=== PATIENT | male | born 1965 | race Caucasian/White ===

== ENCOUNTER 2024-10-30 12:56 | Inpatient (IN) ==
--- NOTE | 2024-10-30 13:14 | ED Physician Documentation ---
PD HPI ABD PAIN Stated complaint Stated Complaint: ABD PX Chief complaint Chief Complaint: Abd Pain Additional information Additional information: 59-year-old male With no pertinent past medical history not on any medications presents to emergency department for about 3 weeks of diarrhea and abdominal pain. He says that he was trying to fight it off thinking it was some sort of GI bug but last night around 11 PM he started experiencing severe lower abdominal pain with diarrhea to the point that he was starting to have some vomiting. No hematochezia no hematemesis. He has been afebrile no Fevers or chills. His who he lives with has no similar symptoms. Meds/Allgy Home Medications Ambulatory Orders Medication Instructions Recorded Confirmed ascorbic acid (vitamin C) 1,000 mg 1 DAILY 09/16/15 09/16/15 chewable tablet cholecalciferol (vitamin D3) 50 1 DAILY 09/16/15 09/16/15 mcg (2,000 unit) capsule (Vitamin D3) [id number] 1 DAILY 09/16/15 09/16/15 fumarate 7.5 mg-folic acid 400 mcg tablet omega-3s 720 mg-dha 300 mg-epa 360 1 BID 09/16/15 09/16/15 mg-fish oil 1,200 mg capsule (Fish Oil) Allergies Allergies Allergy/AdvReac Type Severity Reaction Status Date / Time No Known Drug Allergies Allergy Verified 10/30/24 12:59 PFSH Active Problems All Active Problems (Updated 10/30/24 @ 16:56 by Chino Mitchell MD) CKD (chronic kidney disease) stage 2, GFR 60-89 ml/min (Acute Unknown) Hyperkalemia (Acute) Dehydration (Acute) Large bowel obstruction (Acute ~09/2024) Colon cancer (Acute) SBO (small bowel obstruction) (Acute) Abdominal pain (Acute) Medical History Medical History No pertinent past medical history Surgical History Surgical History No pertinent past surgical history Social History Social History Smoking Status: Never smoker Do you dip or chew tobacco?: No Living arrangement: At home Marital Status: Living Condition: With spouse/s.o. Relationship: Do you feel safe in your home environment?: Yes Suffered physical, verbal, emotional, or financial abuse?: No ETOH Use: Frequency: Weekly Substance Use: denies use POLST Patient has POLST: No Exam Constitutional normal general appearance, no apparent distress, average body habitus, no limitations and alert HENMT normocephalic and head/scalp atraumatic Eyes PERRL Chest inspection of chest normal Respiratory breath sounds equal bilaterally and normal respiratory effort Cardiovascular normal heart rate noted Gastrointestinal abdomen normal to inspection, abdomen soft to palpation, tender to palpation (LLQ), (RLQ) and (suprapubic), nondistended and normoactive bowel sounds Genitourinary no CVA tenderness Extremities normal to inspection Skin skin color normal Results Vitals Vitals: Vital Signs - 24 hr 10/30/24 13:00 10/30/24 16:08 Temperature 36.1 C L Temperature Source Temporal Artery Scan Pulse Rate 71 76 Respiratory Rate 18 21 Blood Pressure 109/73 117/83 O2 Saturation 98 99 O2 Source Room air Room air Pain Intensity 5 4 Oxygen O2 Source Room air Labs Labs: Laboratory Tests 10/30/24 13:23 WBC 9.6 RBC 5.29 Hgb 16.2 Hct 50.1 MCV 94.7 H MCH 30.6 MCHC 32.3 RDW 12.7 Plt Count 307 MPV 8.9 Neut # (Auto) 8.1 H Lymph # (Auto) 0.9 L [place] # (Auto) 0.6 Eos # (Auto) 0.0 Baso # (Auto) 0.0 Absolute Nucleated RBC 0.00 Nucleated RBC % 0.0 Sodium 137 Potassium 5.0 H Chloride 102 Carbon Dioxide 28 Anion Gap 7.0 BUN 17 Creatinine 1.2 Estimated GFR (MDRD) 62 L Glucose 123 H Calcium 9.7 Total Bilirubin 0.6 AST 15 ALT 14 Alkaline Phosphatase 73 Total Protein 8.3 Albumin 4.7 Globulin 3.6 Albumin/Globulin Ratio 1.3 Lipase 18 Rads (name of study) CT abdomen pelvis with contrast: Relevant Findings:: Final report received and EMP independent interpretation of test Interpretation: IMPRESSION: 1.5.7 cm segment of stricturing versus neoplastic infiltration at the proximal transverse colon with proximal small bowel/large bowel dilatation. Additional area of stricturing versus neoplastic infiltration or intussusception at the proximal jejunum. Gastroduodenal consultation and endoscopy/colonoscopy would be recommended for evaluation. 2.Subcentimeter right hepatic hypodense lesion, which is indeterminate given the above predominate finding. 3.Small hiatal hernia. PD Medical Decision Making ED course Complexity details: reviewed results, re-evaluated patient, considered differential, d/w patient and d/w c consultant (Surgeon Dr. Schulz, hospitalist Dr. New) ED course: 59-year-old male presents to emergency department via EMS for severe lower abdominal pain causing nausea vomiting diaphoresis. Since patient has been here he is overall feeling better but he has been struggling with the symptoms now for about the last 3 weeks. Differentials include but not limited to, viral GI infection, small bowel obstruction, neoplasm, colitis. Labs are complete for further evaluation no leukocytosis no anemia neutrophils slightly elevated at 8.1 slightly hyperkalemic, potassium 5.0 most likely due to dehydration, GFR 62. Patient was given a liter of IV fluids here in the emergency department to help with dehydration. CT abdomen pelvis was also completed further evaluation and it unfortunately appears that patient has colon cancer with mets. He has a 5.7 cm segment of stricturing versus neoplastic infiltration at the proximal transverse colon with proximal small bowel/large bowel dilation. Additionally there is areas of stricturing versus neoplastic infiltration or intussusception of the proximal jejunum. He also has a subcentimeter right hepatic hypodense lesion which is indeterminate given the above and a small hiatal hernia as well as a left inferior iliac wing 1.4 cm lucent lesion within sclerotic border which may represent enchondroma. I spoke with her on-call surgeon Dr. Schulz who thinks that patient would benefit from a NG tube. NG tube was placed here in the emergency department and patient was notified of the CT result findings. He said he is having a hard time taking at all and and is willing to be admitted for further evaluation and workup of this. Plan is for surgical services to round on patient hospitalist will admit and surgical services will decide tomorrow with what kind of surgery to do. Discharge Plan Discharge Patient Disposition: [facility] DC/Xfer Condition: Good Clinical Impression: Abdominal pain, SBO (small bowel obstruction), Colon cancer
[2024-10-30] MEDS ORDERED: iohexoL-300 100 ML VIAL ONE (13:17)
[2024-10-30 13:28] LABS: BASOPHILS % (AUTO) 0.2 %; EOSINOPHILS % (AUTO) 0.2 %; HCT - HEMATOCRIT 50.1 % (42.0-52.0); HGB - HEMOGLOBIN 16.2 g/dL (14.0-18.0); LYMPHOCYTES # (AUTO) 0.9 10^3/uL (1.5-3.5); LYMPHOCYTES % (AUTO) 9.3 %; MEAN CORPUSCULAR HEMOGLOBIN 30.6 pg (27.0-31.0); MEAN CORPUSCULAR HGB CONC 32.3 g/dL (32.0-36.0); MEAN CORPUSCULAR VOLUME 94.7 fL (80.0-94.0); MEAN PLATELET VOLUME 8.9 fL (7.4-11.4); MONOCYTES # (AUTO) 0.6 10^3/uL (0.0-1.0); MONOCYTES % (AUTO) 6.2 %; NEUTROPHILS # (AUTO) 8.1 10^3/uL (1.5-6.6); NEUTROPHILS % (AUTO) 83.8 %; PLT - PLATELET COUNT 307 10^3/uL (130-450); RED BLOOD COUNT 5.29 10^6/uL (4.70-6.10); RED CELL DISTRIBUTION WIDTH 12.7 % (12.0-15.0); WHITE BLOOD COUNT 9.6 x10^3/uL (4.8-10.8)
[2024-10-30 13:42] LABS: ALBUMIN 4.7 g/dL (3.2-5.5); ALBUMIN/GLOBULIN RATIO 1.3 (1.0-2.2); BILIRUBIN,TOTAL 0.6 mg/dL (0.2-1.0); CALCIUM 9.7 mg/dL (8.5-10.3); CREATININE 1.2 mg/dL (0.6-1.3); TOTAL PROTEIN 8.3 g/dL (6.4-8.9)
[2024-10-30] MEDS: iohexoL-300 100 ML VIAL IVP ONE (14:33)
--- NOTE | 2024-10-30 15:34 | CT Report ---
PROCEDURE: CT Abdomen/Pelvis W INDICATIONS: Abdominal pain, acute, nonlocalized CONTRAST: 100 ML OMNI TECHNIQUE: After the administration of intravenous contrast, a CT scan of the abdomen and pelvis was performed. Images were recorded and evaluated at appropriate window settings. Reformats: coronal and sagittal. F or radiation dose reduction, the following was used: automated exposure control, adjustment of mA and /or kV according to patient size. COMPARISON: None. FINDINGS: Image quality: Diagnostic. Peritoneum: Small amount of mesenteric fluid around the cecum/right paracolic gutter (4/35). Otherwis e, no pneumoperitoneum or ascites. Bones: No acute osseous abnormality. Left inferior iliac wing 1.4 cm lucent lesion with thin scleroti c borders, which may represent an enchondroma (2/103). Lower Thorax: No acute abnormality. Liver: Normal in size and contour. Subcentimeter hypodense lesion of the right hepatic lobe, too smal l to characterize (2/29). Gallbladder: No wall thickening, stones, or pericholecystic edema. Biliary tree: No intrahepatic or extrahepatic biliary duct dilatation. Pancreas: No acute abnormality. Spleen: Normal in size. Kidneys: Symmetric enhancement without hydronephrosis or obstructive urolithiasis. Adrenals: No nodularity. Bladder: No abnormal wall thickening. : No acute abnormality. Stomach: Small hiatal hernia. No focal masses or abnormal distension. Bowel: Approximately 5.7 cm segment of proximal transverse colonic mural thickening up to 1.7 cm (2/4 8; 4/32-46). Additional segment of mural thickening with possible intraluminal mass versus intussusce ption in the proximal jejunum (4/28; 2/37). Fluid present throughout the colon with descending coloni c dilatation up to 8.9 cm (4/34); the remainder of the colon is decompressed. Diffusely dilated small bowel loops up to 3.9 cm (2/114) without any discrete transition points. Scattered sigmoid colonic d iverticulosis. Lymph Nodes: Contiguous 7 mm short axis node along the mesenteric border of the proximal transverse c olon (2/49). No other retroperitoneal, mesenteric, or inguinal lymphadenopathy. Vascular: No abdominal aortic aneurysm. The visualized arterial vasculature is patent. Soft tissues: No acute abnormality. IMPRESSION: 1.5.7 cm segment of stricturing versus neoplastic infiltration at the proximal transverse colon with proximal small bowel/large bowel dilatation. Additional area of stricturing versus neoplastic infiltr ation or intussusception at the proximal jejunum. Gastroduodenal consultation and endoscopy/colonosco py would be recommended for evaluation. 2.Subcentimeter right hepatic hypodense lesion, which is indeterminate given the above predominate fi nding. 3.Small hiatal hernia. Reviewed by: Arthur Rojas MD on 10/30/2024 3:33 PM PST Approved by: Arthur Rojas MD on 10/30/2024 3:33 PM PST Station ID: [id number]
[2024-10-30] MEDS: SODIUM CHLORIDE 0.9% 1,000 ML IV STA (16:07)
--- NOTE | 2024-10-30 16:20 | CONSULTATION NOTE ---
Referring Provider Name of Referring Provider:: Isabel Aiken Consult Date: 10/30/24 Chief Complaint Chief Complaint Chief Complaint: Abdominal bloating, nausea, vomiting for 3 weeks History of Present Illness History of Present Illness HPI Comment/Other: Garry is a 59 year old male who has struggled with progressive abdominal bloating, nausea, and vomiting for 3 weeks. His bowel motions have changed to mainly liquid stool. He denies rectal bleeding during the last 3 weeks or at anytime during the prior 3-4 years. His appetite has been poor but he is unaware of any weight loss. His last CS exam was September 16, 2015 and was described as normal (see "Activity" tab). At the present time he feels very bloated and nauseated. PFS Active Problems All Active Problems (Updated 10/30/24 @ 16:56 by Chino Mitchell MD) CKD (chronic kidney disease) stage 2, GFR 60-89 ml/min (Acute Unknown) Hyperkalemia (Acute) Dehydration (Acute) Large bowel obstruction (Acute ~09/2024) Colon cancer (Acute) SBO (small bowel obstruction) (Acute) Abdominal pain (Acute) Medical History Medical History No pertinent past medical history Surgical History Surgical History No pertinent past surgical history Social History Social History Smoking Status: Never smoker Do you dip or chew tobacco?: No Living arrangement: At home Marital Status: Living Condition: With spouse/s.o. Relationship: Do you feel safe in your home environment?: Yes Suffered physical, verbal, emotional, or financial abuse?: No ETOH Use: Frequency: Weekly Substance Use: denies use POLST Patient has POLST: No Meds/Allgy Home Medications Ambulatory Orders Medication Instructions Recorded Confirmed ascorbic acid (vitamin C) 1,000 mg 1 DAILY 09/16/15 09/16/15 chewable tablet cholecalciferol (vitamin D3) 50 1 DAILY 09/16/15 09/16/15 mcg (2,000 unit) capsule (Vitamin D3) [id number] 1 DAILY 09/16/15 09/16/15 fumarate 7.5 mg-folic acid 400 mcg tablet omega-3s 720 mg-dha 300 mg-epa 360 1 BID 09/16/15 09/16/15 mg-fish oil 1,200 mg capsule (Fish Oil) Allergies Allergies Allergy/AdvReac Type Severity Reaction Status Date / Time No Known Drug Allergies Allergy Verified 10/30/24 12:59 Results Lab Results 10/30/24 13:23 10/30/24 13:23 Other Lab Results: Lab Results x24hrs 10/30/24 Range/Units 13:23 WBC 9.6 (4.8-10.8) x10^3/uL RBC 5.29 (4.70-6.10) 10^6/uL Hgb 16.2 (14.0-18.0) g/dL Hct 50.1 (42.0-52.0) % MCV 94.7 H (80.0-94.0) fL MCH 30.6 (27.0-31.0) pg MCHC 32.3 (32.0-36.0) g/dL RDW 12.7 (12.0-15.0) % Plt Count 307 (130-450) 10^3/uL MPV 8.9 (7.4-11.4) fL Neut # (Auto) 8.1 H (1.5-6.6) 10^3/uL Lymph # (Auto) 0.9 L (1.5-3.5) 10^3/uL [place] # (Auto) 0.6 (0.0-1.0) 10^3/uL Eos # (Auto) 0.0 (0.0-0.7) 10^3/uL Baso # (Auto) 0.0 (0.0-0.1) 10^3/uL Absolute Nucleated RBC 0.00 x10^3/uL Nucleated RBC % 0.0 /100WBC Sodium 137 (135-145) mmol/L Potassium 5.0 H (3.5-4.5) mmol/L Chloride 102 (101-111) mmol/L Carbon Dioxide 28 (21-32) mmol/L Anion Gap 7.0 (6-13) BUN 17 (6-20) mg/dL Creatinine 1.2 (0.6-1.3) mg/dL Estimated GFR (MDRD) 62 L (>89) Glucose 123 H (74-104) mg/dL Calcium 9.7 (8.5-10.3) mg/dL Total Bilirubin 0.6 (0.2-1.0) mg/dL AST 15 (10-42) IU/L ALT 14 (10-60) IU/L Alkaline Phosphatase 73 (42-121) IU/L Total Protein 8.3 (6.4-8.9) g/dL Albumin 4.7 (3.2-5.5) g/dL Globulin 3.6 (2.1-4.2) g/dL Albumin/Globulin Ratio 1.3 (1.0-2.2) Lipase 18 (11-82) U/L Diagnostic Imaging Results Diagnostic Imaging Results Comments: CT Abd/Pelvis - Obstruction of the colon at the hepatic flexure with decompressed colon distal to the obstruction. There appears to be an intra- luminal mass causing the obstruction. The colon proximal to the mass is dilated as is the terminal ileum and distal small bowel. There is no clear evidence of extension of the mass outside the colon. The liver has no evidence of metastasis. There is no evidence of bowel perforation or ischemia. I have personally reviewed the CT images and report - [place] Conclusion and Plan Diagnosis Diagnosis: 1) Obstructing colon lesion likely due to malignancy. No clear image evidence for metastatic disease or invasion of surrounding structures although there is enlargement of the mesenteric lymph nodes to this area of the colon. The ileocecal valve is incompetent which is why the distal small bowel is dilated. There is a possible non-obstructing jejuno-jejunal intussusception in the LUQ 2) Hyperkalemia 3) Intra-vascular volume depletion Plan Plan: 1) Admission to the Medical Hospitalist Service 2) NGT to LIS to decompress the small bowel 3) Potassium free IV fluid to manage the dehydration and hyperkalemia - labs in am 4) CEA blood test before any surgery performed 5) VTEP 6) My assignment at [facility] ends tomorrow morning so any surgical procedure that is performed at this facility will be by either the on-call surgeon or one of the other hospital surgeons who will make the final decision regarding operative strategy. Chino Mitchell MD, FACS General Surgery Service Review of Systems Status of ROS: 10 or more systems reviewed and unremarkable except as noted in history and below Constitutional Reports: Malaise and Poor appetite Gastrointestinal Reports: Abdominal pain, Abdominal distention, Nausea, Vomiting, Poor appetite, Diarrhea, Bloating, Belching and Change in bowel habits Exam Constitutional average body habitus In moderate distress due to abdominal bloating HENMT normocephalic, head/scalp atraumatic, hearing grossly normal bilaterally and oropharynx normal Eyes PERRL, EOMs intact bilaterally, conjunctivae normal and no scleral icterus Neck/C-Spine visual inspection normal and trachea midline Lymph no lymphadenopathy noted Chest inspection of chest normal Respiratory breath sounds equal bilaterally, normal respiratory effort, clear to auscultation bilaterally and no wheezes Cardiovascular normal heart rate noted, regular rhythm noted, no gallop and no murmur Gastrointestinal abdomen normal to inspection, abdomen soft to palpation, nontender to palpation and nontender to percussion Abdomen is distended with tympany to percussion Genitourinary no CVA tenderness Extremities normal to inspection Neurology no focal motor deficit noted Psychiatry mental status grossly normal, oriented x3, thought process normal, cooperative and affect normal Skin skin color normal diaphoretic
--- NOTE | 2024-10-30 16:59 | HISTORY & PHYSICAL EXAMINATION ---
Chief Complaint Chief Complaint Chief Complaint: abdominal pain History of Present Illness Admitted From Admitted From:: emergency room History of Present Illness HPI Comment/Other: Patient is a 59 year old male that presents for abdominal pain. Patient states that the pain began about 3 weeks ago. He describes it as intermittent intense pain lasting from seconds to minutes in the RUQ to midline upper quadrant. It has progressively been getting worse, earlier today the pain was the worst it has been and associated with vomiting and diaphoresis. Last bowel movement was this morning. Associated symptoms include nausea during pain episodes, pain worsened with eating, subjective fever this morning. Patient denies melena, hematochezia,weight loss, night sweats, family history of colon cancer, smoking history, significant medical history, significant surgical history. He states he only drinks on the weekends, 1-2 drinks. Patient had a colonoscopy that was negative in 2015. CT indicates 5.7 cm segment of stricturing versus neoplastic infiltration at the proximal transverse colon with proximal small bowel/large bowel dilatation. Additional area of stricturing versus neoplastic infiltration or intussusception at the proximal jejunum. In the ER, patient denies pain currently, NG tube has been placed. Admitted for pre-operative observation. Right hemicolectomy scheduled for tomorrow. Meds/Allgy Home Medications Ambulatory Orders Medication Instructions Recorded Confirmed ascorbic acid (vitamin C) 1,000 mg 1 DAILY 09/16/15 09/16/15 chewable tablet cholecalciferol (vitamin D3) 50 1 DAILY 09/16/15 09/16/15 mcg (2,000 unit) capsule (Vitamin D3) [id number] 1 DAILY 09/16/15 09/16/15 fumarate 7.5 mg-folic acid 400 mcg tablet omega-3s 720 mg-dha 300 mg-epa 360 1 BID 09/16/15 09/16/15 mg-fish oil 1,200 mg capsule (Fish Oil) Allergies Allergies Allergy/AdvReac Type Severity Reaction Status Date / Time No Known Drug Allergies Allergy Verified 10/30/24 12:59 [facility] Active Problems All Active Problems (Updated 10/30/24 @ 19:05 by VANESSA Mancuso) Urethral stricture (Acute) CKD (chronic kidney disease) stage 2, GFR 60-89 ml/min (Acute Unknown) Hyperkalemia (Acute) Dehydration (Acute) Large bowel obstruction (Acute ~09/2024) SBO (small bowel obstruction) (Acute) Abdominal pain (Acute) Medical History Medical History No pertinent past medical history Surgical History Surgical History No pertinent past surgical history Social History Social History Smoking Status: Never smoker Do you dip or chew tobacco?: No Living arrangement: At home Marital Status: Living Condition: With spouse/s.o. Relationship: Do you feel safe in your home environment?: Yes Suffered physical, verbal, emotional, or financial abuse?: No ETOH Use: Frequency: Weekly Substance Use: denies use POLST Patient has POLST: No Review of Systems Constitutional Reports: Fever; Denies: Chills, Night sweats, Changes in appetite or eating habits or Weight loss Cardiovascular Denies: chest pain or shortness of breath with exertion Respiratory Denies: Shortness of breath Gastrointestinal Reports: Abdominal pain (RUQ), Nausea and Vomiting; Denies: Rectal bleeding, Melena or Blood in stool Exam Constitutional normal general appearance, no apparent distress and average body habitus HENMT normocephalic, head/scalp atraumatic and nasal mucous membranes normal Eyes PERRL, EOMs intact bilaterally and conjunctivae normal Neck/C-Spine visual inspection normal and trachea midline Chest inspection of chest normal and palpation of chest normal Respiratory breath sounds equal bilaterally, normal respiratory effort, clear to auscultation bilaterally, no wheezes and no rales Cardiovascular normal heart rate noted, regular rhythm noted, no gallop, no rub and no murmur Gastrointestinal abdomen normal to inspection, nontender to palpation and normoactive bowel sounds Extremities normal to inspection Neurology form setter/driver II-XII intact, no movement abnormality noted, no focal motor deficit noted, gait normal and speech normal Psychiatry oriented x3, thought process normal, cooperative and affect normal Skin skin color normal Conclusion/Plan Problem List (1) Large bowel obstruction: Plan: Patient has been having episodes of worsening abdominal pain for the past 2-[address] indicates 5.7 cm segment of stricturing versus neoplastic infiltration at the proximal transverse colon with proximal small bowel/large bowel dilatation. Additional area of stricturing versus neoplastic infiltration or intussusception at the proximal jejunum, Subcentimeter right hepatic hypodense lesion, which is indeterminate given the above predominate finding. Consult by general surgeon Dr. Mitchell, right hemicolectomy with anastomoses indicated, surgery tomorrow will be completed by Dr. Uriarte. NG tube placed, CEA ordered, patient placed NPO. (2) Hyperkalemia: Plan: Potassium 5.0 on admission, dextrose 5%-.045%NaCl IV 150mls/hr ordered, will recheck tomorrow morning. (3) Urethral stricture: Plan: Dr. Erickson will place a rm catheter tomorrow morning prior to the surgery. Lab Results Lab results reviewed: Yes 10/30/24 13:23 10/30/24 13:23 Diagnostic Imaging Results Diagnostic Imaging Results: positive Final report reviewed
[2024-10-30] MEDS ORDERED: HYDROmorphone 0.5 MG/0.5 ML SYRINGE IVP PRN (17:16)
[2024-10-30] MEDS ORDERED: ONDANSETRON 4 MG/2 ML VIAL IVP PRN (17:16)
[2024-10-30] MEDS ORDERED: SODIUM CHLORIDE FLUSH 0.9% 10 ML SYRINGE IVP PRN ×2 (17:16→19:25)
[2024-10-30] MEDS: DEXTROSE 5%-0.45% NACL 1,000 ML IV SCH (17:32)
--- NOTE | 2024-10-30 18:02 | XRAY Report ---
PROCEDURE: XR No-Charge 1V Abdomen INDICATIONS: Ng placement TECHNIQUE: 1 view of the abdomen were acquired. COMPARISON: CT from same day FINDINGS: Surgical changes and devices: Nasogastric tube is in place. Distal tip and side-port projects below the level diaphragm and over the left upper abdomen. Positioning appears adequate. Bowel: No pneumoperitoneum. Multiple prominent loops of small bowel as noted on comparison CT. Stool load within normal limits. Soft tissues: No masses; visualized solid organ contours appear normal in size. No suspicious abdom inal calcifications. Bones: No suspicious bony abnormalities. IMPRESSION: Nasogastric tube in appropriate positioning. Reviewed by: Neel Chase MD on 10/30/2024 6:00 PM PST Approved by: Neel Chase MD on 10/30/2024 6:00 PM [facility] Station ID: [id number]
--- NOTE | 2024-10-30 18:12 | XRAY Report ---
PROCEDURE: XR Chest for Line Placement INDICATIONS: NG position TECHNIQUE: One view of the chest was acquired. COMPARISON: Abdomen from same day FINDINGS: Surgical changes and devices: Nasogastric tube is in place with distal tip and side-port projecting below the level of diaphragm and over the left upper quadrant. Lungs and pleura: No pleural effusions or pneumothorax. No consolidation. Mediastinum: Mediastinal contours appear normal. Heart size is normal. Bones and chest wall: No suspicious bony lesions. Overlying soft tissues appear unremarkable. IMPRESSION: No acute cardiopulmonary process. Nasogastric tube in place with appropriate positioning. Reviewed by: Neel Chase MD on 10/30/2024 6:10 PM PST Approved by: Neel Chase MD on 10/30/2024 6:10 PM PST Station ID: [id number]
--- NOTE | 2024-10-30 19:35 | PROVIDER PROGRESS NOTE ---
Subjective General Admit Date: 10/30/24 Other Other Information/Narrative: I was asked by Dr. Maciel to evaluate this 59-year-old male after Dr. Mitchell consulted on the patient for large bowel obstruction. Dr. Mitchell will be leaving town tomorrow morning as his on-call obligations stop at 0700. After reviewing the patient's chart, I went over the findings with both the patient and his , who is a pathologist, and explained that surgery is indicated. We do not have a pathologic diagnosis as of yet although malignancy should be considered a possibility. The patient had a normal bowel movement in the past 24 hours and has been feeling under the weather for approximately 3 weeks which he attributed to the flu. His abdominal discomfort worsened to the point where this morning at 1100 rather than attend a meeting he told his that they needed to go to the emergency room at which point the vomiting started. Of note, he had a colonoscopy by Dr. Steward in 2016 which was unrevealing of any pathology. Review of Systems CONSTITUTIONAL: No weight loss, fever, chills, weakness or fatigue. HEENT: Eyes: No visual loss, blurred vision, double vision or yellow sclerae. Ears, Nose, Throat: No hearing loss, sneezing, congestion, runny nose or sore throat. SKIN: No rash or itching. CARDIOVASCULAR: No chest pain, chest pressure or chest discomfort. No palpitations or edema. No change in cardiovascular endurance. RESPIRATORY: No shortness of breath (exertional or resting), cough or sputum. GASTROINTESTINAL: No anorexia, nausea, vomiting or diarrhea. No abdominal pain or blood. GENITOURINARY: No dysuria, urgency, frequency, nocturia. NEUROLOGICAL: No headache, dizziness, syncope, paralysis, ataxia, numbness or tingling in the extremities. No change in bowel or bladder control. No memory loss. MUSCULOSKELETAL: No muscle, back pain, joint pain or stiffness. HEMATOLOGIC: No anemia, bleeding or bruising. LYMPHATICS: No enlarged nodes. No history of splenectomy. PSYCHIATRIC: No history of depression or anxiety. ENDOCRINOLOGIC: No reports of sweating, cold or heat intolerance. No polyuria or polydipsia. ALLERGIES: No history of asthma, hives, eczema or rhinitis. Exam Exam General: 59-year old male, appears stated age, well developed, well nourished evaluated in room 2204 of [facility] Med[facility] unit in the presence of his HEENT: Normocephalic, atraumatic, extraocular movement intact, mucous membranes pink and moist, sclera anicteric and not injected Neck: Supple without pain on palpation, mass or bruit Cardiac: Regular rate and rhythm without rub, gallop, or murmur Chest: Clear to auscultation bilaterally Abdomen: Soft, nontender, decreased bowel sounds, no hepatomegaly, no splenomegaly, slightly doughy abdomen Genitourinary: Deferred Rectal: Deferred Extremities: No gross neurovascular problem, no clubbing, cyanosis or edema Gait: Not evaluated Psychiatric: Alert and oriented to person place and time, asks and answers questions appropriately, mood and affect appropriate Impression/Plan Problem List (1) Large bowel obstruction: Plan: Extended right hemicolectomy, possible ileostomy, possible colostomy, possible small bowel resection. The indications, procedure, alternatives including no surgery, possible risks including infection (deep or superficial), bleeding requiring transfusion (with all of its risks), and were fully explained to the patient and his and all questions answered. I explained that following the surgery I did not want him lifting anything over 15 pounds for 6 weeks to allow for optimal healing and to decrease the likelihood that a hernia would occur. All questions were fully answered. Verbal and written consent was obtained. The patient, in preparation for surgery will be nothing by mouth, and receive 3.375 g of Zosyn with induction. I asked him to contact me with any surgical questions and his concerns and he stated that he would. I asked him to let me know if there is any way we can make his stay at [facility] more comfortable and he stated that he would let me know. 45 minutes of dzep-[id number]-dwci time spent with the patient, over 80% in discussion and coordination of his care (2) Hyperkalemia: Plan: Sandra Babita is following and repeat labs are ordered. Likely secondary to intravascular depletion. (3) Urethral stricture: Plan: Dr. Erickson has been kind enough to make himself available if there is a problem.
[2024-10-30] MEDS: SODIUM CHLORIDE FLUSH 0.9% 10 ML SYRINGE IVP SCH (19:49)
[2024-10-30] MEDS: HEPARIN 5,000 UNIT/ML VIAL SUBQ SCH (21:09)
[2024-10-30 21:57] LABS: CALCIUM 9.4 mg/dL (8.5-10.3); CREATININE 1.1 mg/dL (0.6-1.3); POTASSIUM 4.5 mmol/L (3.5-4.5)
[2024-10-30 22:31] LABS: BILIRUBIN,URINE SMALL (NEGATIVE); GLUCOSE, URINE (UA) NEGATIVE (NEGATIVE); KETONES,URINE (UA) 15 mg/dL (NEGATIVE); LEUKOCYTE ESTERASE, URINE NEGATIVE (NEGATIVE); NITRITE,URINE NEGATIVE (NEGATIVE); OCCULT BLOOD,URINE NEGATIVE (NEGATIVE); PH,URINE 5.5 PH (5.0-7.5); PROTEIN,URINE TRACE mg/dL (NEGATIVE); UROBILINOGEN,URINE 0.2 (NORMAL) E.U./dL (NORMAL)
[2024-10-30 22:32] LABS: CLARITY,URINE CLEAR (CLEAR)
[2024-10-31] MEDS: SODIUM CHLORIDE FLUSH 0.9% 10 ML SYRINGE IVP SCH (00:19)
[2024-10-31 05:36] LABS: BASOPHILS % (AUTO) 0.4 %; EOSINOPHILS # (AUTO) 0.1 10^3/uL (0.0-0.7); EOSINOPHILS % (AUTO) 0.6 %; HCT - HEMATOCRIT 45.7 % (42.0-52.0); LYMPHOCYTES % (AUTO) 12.2 %; MEAN CORPUSCULAR HEMOGLOBIN 31.1 pg (27.0-31.0); MEAN CORPUSCULAR HGB CONC 32.8 g/dL (32.0-36.0); MEAN CORPUSCULAR VOLUME 94.6 fL (80.0-94.0); MONOCYTES # (AUTO) 0.7 10^3/uL (0.0-1.0); MONOCYTES % (AUTO) 8.8 %; NEUTROPHILS # (AUTO) 6.1 10^3/uL (1.5-6.6); NEUTROPHILS % (AUTO) 77.7 %; PLT - PLATELET COUNT 271 10^3/uL (130-450); RED BLOOD COUNT 4.83 10^6/uL (4.70-6.10); RED CELL DISTRIBUTION WIDTH 12.8 % (12.0-15.0); WHITE BLOOD COUNT 7.8 x10^3/uL (4.8-10.8)
[2024-10-31 05:55] LABS: CALCIUM 8.7 mg/dL (8.5-10.3); CREATININE 1.1 mg/dL (0.6-1.3); POTASSIUM 4.3 mmol/L (3.5-4.5)
--- NOTE | 2024-10-31 06:35 | ANESTHESIA PROCEDURE NOTE ---
Pre-Anesthesia VS, & Labs Diagnosis Surgical Diagnosis:: bowel obstruction, mass vs stricture on CT Procedure Procedure: right colectomy Vitals Vital Signs: Temp Pulse Resp BP Pulse Ox O2 Flow Rate 36.7 C 74 22 125/81 98 10 10/31/24 10:57 10/31/24 10:57 10/31/24 10:57 10/31/24 10:57 10/31/24 05:00 10/31/24 10:57 NPO NPO: >8 hours (NGT in place) Lab Results Current Lab Results: Laboratory Tests 10/31/24 05:16: WBC 7.8, RBC 4.83, Hgb 15.0, Hct 45.7, MCV 94.6 H, MCH 31.1 H, MCHC 32.8, RDW 12.8, Plt Count 271, MPV 9.0, Neut # (Auto) 6.1, Lymph # (Auto) 1.0 L, [place] # (Auto) 0.7, Eos # (Auto) 0.1, Baso # (Auto) 0.0, Absolute Nucleated RBC 0.00, Nucleated RBC % 0.0, Sodium 137, Potassium 4.3, Chloride 105, Carbon Dioxide 25, Anion Gap 7.0, BUN 15, Creatinine 1.1, Estimated GFR (MDRD) 69 L, Glucose 142 H, Calcium 8.7 10/30/24 19:48: Sodium 138, Potassium 4.5, Chloride 104, Carbon Dioxide 26, Anion Gap 8.0, BUN 19, Creatinine 1.1, Estimated GFR (MDRD) 69 L, Glucose 153 H, Calcium 9.4 10/30/24 13:23: WBC 9.6, RBC 5.29, Hgb 16.2, Hct 50.1, MCV 94.7 H, MCH 30.6, MCHC 32.3, RDW 12.7, Plt Count 307, MPV 8.9, Neut # (Auto) 8.1 H, Lymph # (Auto) 0.9 L, [place] # (Auto) 0.6, Eos # (Auto) 0.0, Baso # (Auto) 0.0, Absolute Nucleated RBC 0.00, Nucleated RBC % 0.0, Sodium 137, Potassium 5.0 H, Chloride 102, Carbon Dioxide 28, Anion Gap 7.0, BUN 17, Creatinine 1.2, Estimated GFR (MDRD) 62 L, Glucose 123 H, Calcium 9.7, Total Bilirubin 0.6, AST 15, ALT 14, Alkaline Phosphatase 73, Total Protein 8.3, Albumin 4.7, Globulin 3.6, Albumin/Globulin Ratio 1.3, Lipase 18 10/31/24 05:16 10/31/24 05:16 Meds/Allgy Home Medications Ambulatory Orders Medication Instructions Recorded Confirmed ascorbic acid (vitamin C) 1,000 mg 1 DAILY 09/16/15 09/16/15 chewable tablet cholecalciferol (vitamin D3) 50 1 DAILY 09/16/15 09/16/15 mcg (2,000 unit) capsule (Vitamin D3) [id number]-[id number]-pmxf 1 DAILY 09/16/15 09/16/15 fumarate 7.5 mg-folic acid 400 mcg tablet omega-3s 720 mg-dha 300 mg-epa 360 1 BID 09/16/15 09/16/15 mg-fish oil 1,200 mg capsule (Fish Oil) Allergies Allergies Allergy/AdvReac Type Severity Reaction Status Date / Time No Known Drug Allergies Allergy Verified 10/30/24 12:59 PFSH Active Problems All Active Problems (Updated 10/31/24 @ 11:04 by Larry Uriarte MD) Postoperative pain (Acute) Urethral stricture (Acute) CKD (chronic kidney disease) stage 2, GFR 60-89 ml/min (Acute Unknown) Hyperkalemia (Acute) Dehydration (Acute) Large bowel obstruction (Acute ~09/2024) SBO (small bowel obstruction) (Acute) Abdominal pain (Acute) Medical History Medical History No pertinent past medical history Surgical History Surgical History No pertinent past surgical history Social History Social History Smoking Status: Never smoker Do you dip or chew tobacco?: No Living arrangement: At home Marital Status: Living Condition: With spouse/s.o. Relationship: Level: Independent Do you feel safe in your home environment?: Yes Suffered physical, verbal, emotional, or financial abuse?: No ETOH Use: Frequency: Weekly Substance Use: denies use POLST Patient has POLST: No Anesthesia Exam (Expanded) Exam General: Alert, Oriented x3 and Cooperative Dental: WNL Mouth Opening: Greater than 4 Fingerbreadths Neck Mobility: Normal Mallampati classification: II Thyromental Distance: greater than 6 cm Respiratory: Lungs clear Cardiovascular: Regular rate Plan Problem List (1) Large bowel obstruction: Plan: Patient has been having episodes of worsening abdominal pain for the past 2-[address] indicates 5.7 cm segment of stricturing versus neoplastic infiltration at the proximal transverse colon with proximal small bowel/large bowel dilatation. Additional area of stricturing versus neoplastic infiltration or intussusception at the proximal jejunum, Subcentimeter right hepatic hypodense lesion, which is indeterminate given the above predominate finding. Consult by general surgeon Dr. Mitchell, right hemicolectomy with anastomoses indicated, surgery tomorrow will be completed by Dr. Uriarte. NG tube placed, CEA ordered, patient placed NPO. (2) Hyperkalemia: Plan: Potassium 5.0 on admission, dextrose 5%-.045%NaCl IV 150mls/hr ordered, will recheck tomorrow morning. (3) Urethral stricture: Plan: Dr. Erickson will place a rm catheter tomorrow morning prior to the surgery. Plan Anesthesia Type: General and Epidural Regional Block: Per Surgeon's request for Post Op pain control (epidural) Consent for Procedure(s) Verified and Reviewed: Yes Code Status: Attempt Resuscitation ASA Classification ASA classification: 2-Mild systemic disease Is this case an emergency?: Yes
[2024-10-31] MEDS ORDERED: BUPIVACAINE 0.5%-EPI 1:200000 PF 10 ML VIAL ONE (07:06)
[2024-10-31] MEDS ORDERED: LIDOCAINE-PF 2% 10 ML AMP SUBQ ONE (07:10)
[2024-10-31] MEDS ORDERED: MIDAZOLAM 2 MG/2 ML VIAL ONE ×2 (07:10→07:49)
[2024-10-31] MEDS ORDERED: PROPOFOL 200 MG/20 ML VIAL IVP ONE (07:10)
[2024-10-31] MEDS ORDERED: ROCURONIUM 50 MG/5 ML VIAL ONE ×2 (07:10→09:37)
[2024-10-31] MEDS ORDERED: fentaNYL 100 MCG/2 ML VIAL ONE ×3 (07:11→11:56)
[2024-10-31] MEDS ORDERED: PIPERACILLIN/TAZOBACTAM 3.375 GM in SODIUM CHLORIDE 0.9% MINIBAG 100 ML IV SCH ×2 (07:30→14:00)
[2024-10-31] MEDS ORDERED: DEXAMETHASONE 4 MG/ML VIAL ONE (08:57)
[2024-10-31] MEDS ORDERED: ONDANSETRON 4 MG/2 ML VIAL ONE (08:57)
[2024-10-31] MEDS ORDERED: PHENYLEPHRINE HCL 0.5 MG/5 ML AMPULE ONE (08:57)
[2024-10-31] MEDS ORDERED: ROPIVACAINE 0.2% PF 10 ML VIAL ONE ×2 (09:18→10:42)
[2024-10-31] MEDS ORDERED: PHENYLEPHRINE 10 MG/ML VIAL ONE (09:20)
[2024-10-31] MEDS ORDERED: SUGAMMADEX 200 MG/2 ML VIAL IVP ONE (10:34)
[2024-10-31] MEDS ORDERED: ACETAMINOPHEN 1,000 MG/100 ML 1,000 MG/100 ML BAG IV ONE (10:42)
--- NOTE | 2024-10-31 10:59 | OPERATIVE REPORT ---
Operative Report General Admit Date: 10/30/24 Procedure Data: Operation Date: 10/31/24 07:30 Proposed Procedures p Right Colon Hemicolectomy, Possible Ileostomy/Colostomy, Possible Small Bowel Resection,(Right) - Larry Uriarte MD Actual Procedures p Right Colon Hemicolectomy(Right) - Larry Uriarte MD Anesthesia Type Epidural Case Staff Anesthesia Provider: Layla Martinez Case Times Procedure Start: 10/31/24 08:54 Procedure End: 10/31/24 10:42 Time out: 10/31/24 08:53 Other Other Information/Narrative: Patient Name: Garry Stahl Patient date: 1965 Patent MR number: [id number] Date of procedure: 10/30/2024 Preoperative Diagnosis/Indications: Large bowel obstruction, small umbilical hernia Postoperative Diagnosis: 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 Procedure: Extended right hemicolectomy with ileocolostomy - CPT 90103, repair umbilical hernia (less than 3 cm) - CPT 12834 Fluids: 1300 mL EBL: 50 mL Urine output: 50 mL Drains: None Findings: Multiple adhesions and obstructive tumor in the proximal transverse colon Complications: None Surgeon/Dictated by: Larry Uriarte MD Senior Web Analyst: Layla Martinez CRNA Anesthesia type: General Endotracheal plus thoracic epidural Procedure: After verbal and written informed consent was obtained detailing the operation, the alternatives the operation including no operation, risks of infection, bleeding requiring transfusion with its risks, nerve injury, and and after I met with the patient confirming the surgery and the site of surgery, the patient was brought to the operative suite and placed supine on the operating table. Great care was taken to avoid pressure points to prevent pressure necrosis or nerve injury. Monitoring devices were applied along with TEDs and pneumatic compression stockings (to prevent DVT). An intravenous line was started and anesthesia was maintained throughout the case. The patient was monitored for cardiac, blood pressure, and oxygen saturation continuously. The patient received preoperative antibiotics for surgical prophylaxis. [Senior Web Analyst] sedated and anesthetized the patient for the entire procedure. The patient was prepped and draped in the usual sterile manner. With the patient draped my initials were clearly visible. A "time in" then confirmed that the patient was identified with 3 identifiers (name, date, and medical record number), the history and physical was updated and in the chart, the signed consent confirming the procedure was in the chart, the patient was in the correct position, the aforementioned prophylactic measures were in place or given, we had the correct personnel and equipment to complete the procedure and that anesthesia and the surgical team were given an opportunity to express any concerns. With the agreement of everyone in the room we proceeded with the operation. A midline incision was made from 4 cm below the xiphoid all the way down to the known umbilical hernia. It was much smaller than 3 cm in diameter. The incision was curved around the umbilicus to just below the umbilicus. Dissection down to the linea alba was accomplished using Bovie electrocautery. Hemostasis was obtained using Bovie electrocautery. The linea alba was incised using Bovie electrocautery. The peritoneum was then picked up and incised using Metzenbaum scissors and the peritoneal and incision was then lengthened to the length of the skin incision using Bovie electrocautery with my fingers protecting the bowel underneath. In this manner the fascial as well as peritoneal incisions were lengthened to the length of his skin incision. Upon entering the abdomen there was no ascites. There was a rather dense adhesion of the omentum down to the right lower quadrant. This precluded adequate visualization and as such the adhesion had to be released. Upon releasing the adhesion, the omentum was grasped and pulled cephalad thus revealing the colonic attachments to the omentum which were taken down using serial application of Bovie electrocautery. Great care was taken to not injure the colon. In this manner the colon was freed from the omentum. As I dissected distally to proximally a mass was clearly palpated in the proximal transverse colon. This was firm round and about the size of a racquetball. This was the source of the patient's obstruction. At this point I directed my attention to the right side of the patient's abdomen and dissected the colon free from the lateral wall along the white line of Toldt again using Bovie electrocautery. Great care was taken not to injure the colon itself. In this manner the colon was freed lateral to medially with the mesentery intact. Upon bringing the colon up into the wound the very tip of the appendix which had been adherent down into the pelvis did fracture at the very distal end and this was removed separately from the main specimen using application of the LigaSure. Having freed the colon proximally and distally this I continued to dissect from laterally to medially freeing the colon from its attachments to the lateral wall taking great care to ensure that there was no injury to the underlying duodenum. With this complete the entire right colon, appendix and proximal transverse colon were now fully mobilized. The mesentery of the terminal ileum was fenestrated using Bovie lecture cautery and a CASANDRA stapler was placed across the terminal ileum and fired thus transecting the terminal ileum. In a similar manner the mesentery at the mid transverse colon was fenestrated and a CASANDRA stapler was placed across the colon and fired thus transecting the colon. I measured at least 7 cm from the tumor to this staple line. Proximally there was no concern for a margin as it was much larger than 5 to 7 cm. With the colon freed now both proximally and distally the only thing that was still attaching that to the patient's was the mesentery which was taken at the base of the mesentery using serial application of the Lige sure and taking great care to ensure as many lymph nodes as possible. Two venous bleeders at the base were controlled using 3-0 Vicryl [id number] suture ligatures. The specimen was then delivered from the operative field and placed on the back table to be opened at the conclusion of the case. Examination of the resection margins revealed meticulous hemostasis. Adhesions to the terminal ileum were taken down both sharply as well as Bovie elect rocautery in order to release the terminal ileum and allow for anastomosis to the colon without any undue tension. With the adhesions released the small bowel aligned next to the distal transverse colon easily and without any tension. Three 3-0 Vicryl sutures were then placed to align the staple line as well as the proposed anastomosis. A small colotomy and ileotomy were then made using scissors widened using Denia and in each 1 arm of the CASANDRA 75 stapler was placed. The stapler was joined and fired thus creating the ileocolostomy. By creating this ileocolostomy using the stapler the 2 holes that were made in the colon and the ileum were joint to make 1 larger hole. This was then closed using an application of the CASANDRA stapler across it to ensuring that the staple lines did not line up across the closure. Manual examination as well as visual examination of this anastomosis noted to be intact and widely patent. The anastomosis was then buttressed using 3-0 Vicryl suture in a Lembert fashion on both sides of the bowel. I opted not to close the mesenteric defect. Manual and visual examination of the abdomen did not reveal any other pathology. Specifically there were no masses or lesions in the liver that were concerning. The gallbladder itself appeared normal. The nasogastric tube was in the stomach and functional. The abdomen was then copiously irrigated with almost 2 L of warm sterile saline. The preserved omentum was then wrapped about the anastomosis. The fascia was then approximated using an 0-looped PDS starting inferiorly and superiorly and running the suture to tie in the middle of the incision. In closing the fascia the previously noted umbilical hernia was also repaired. The subcutaneous tissues were copious irrigated using warm sterile saline and hemostasis obtained using Bovie electrocautery. Skin was approximated using skin maile sparingly but aligning the incision nicely. In between the maile Dermabond was placed. At this point a "timeout" was performed that confirmed that all counts were correct, the procedure that was performed, the blood loss, the IV fluids administered, the patient's condition and any concerns of the operating team had. Dressings were then applied. Having tolerated the procedure well, the patient was extubated and taken to recovery room in good and stable condition. The plan is for continued inpatient admission until bowel function has returned at which point he can be fed, we can ensure that adequate pain control is present, we can ensure that he is able to ambulate, and we can ensure there is no ongoing infection at which point he can be discharged home. To this and the ERAS protocol has been ordered. Today's documentation has been created with the assistance of voice recognition software. Therefore, it may contain anomalous punctuation, anomalous independent mis-recognitions, word substitutions, insertions or omissions. Occasional wrong-word or phonetically similar substitutions may also occur all due to the inherent limitations of voice recognition software. I have attempted to correct the above but I recommend that the chart be read carefully to recognize, using context, where the substitutions, insertions or omissions may have occurred.
[2024-10-31] MEDS ORDERED: LIDOCAINE-MPF 2% 5 ML VIAL ONE (11:08)
[2024-10-31] MEDS ORDERED: ROPIVACAINE 0.2% 200 MG/100 ML BAG EP ONE (11:08)
[2024-10-31] MEDS ORDERED: MORPHINE 2 MG/ML CARPUJECT IVP PRN (11:26)
[2024-10-31] MEDS ORDERED: METOCLOPRAMIDE 10 MG/2 ML VIAL IVP PRN ×2 (11:26)
[2024-10-31] MEDS ORDERED: NALOXONE 0.4 MG/ML VIAL IVP PRN ×3 (11:26→11:31)
[2024-10-31] MEDS ORDERED: ONDANSETRON 4 MG/2 ML VIAL IVP PRN ×2 (11:26)
[2024-10-31] MEDS ORDERED: ePHEDrine 50 MG/ML VIAL IVP PRN ×3 (11:26→11:31)
[2024-10-31] MEDS ORDERED: NALBUPHINE 10 MG/ML AMP IVP PRN ×2 (11:26→11:31)
[2024-10-31] MEDS ORDERED: ATROPINE ABBOJECT 1 MG/10 ML SYRINGE IVP PRN (11:26)
[2024-10-31] MEDS ORDERED: diphenhydrAMINE INJ 50 MG/ML VIAL IVP PRN ×3 (11:26→11:31)
[2024-10-31] MEDS ORDERED: HYDROmorphone 0.5 MG/0.5 ML SYRINGE ONE (11:38)
[2024-10-31] MEDS ORDERED: DEXMEDETOMIDINE 200 MCG/2 ML VIAL ONE (11:39)
[2024-10-31] MEDS: HYDROmorphone 0.5 MG/0.5 ML SYRINGE IVP PRN (11:39)
[2024-10-31] MEDS: fentaNYL 100 MCG/2 ML VIAL IVP PRN (12:00)
[2024-10-31] MEDS: LACTATED RINGERS 1,000 ML IV SCH ×2 (12:00→14:02)
--- NOTE | 2024-10-31 13:53 | PHARMACY PROGRESS NOTE ---
Best Possible Medication History Admit Date and Time: 10/30/24 3586 Processed by: Pharmacy Medications reviewed in ED?: No Medication History completed: Yes Patient Interview: Completed Secondary Source(s): Other family member and Insurance records [facility] Statement: Pt interview with spouse present. [employer] [facility] records reviewed. Pt takes no home medications. As the person ultimately responsible for medication therapy, providers are able to order a medication from an existing home medication list in [facility] via the "Reconcile Routine" prior to Confirmation of that medication by field support engineer. Such practice is discouraged except when the physician, in their clinical judgment, deems that a medical need exists for a medication without regard to previous use.
[2024-10-31] MEDS: LACTATED RINGERS 500 ML IV ONE (14:03)
[2024-10-31] MEDS: ACETAMINOPHEN 1,000 MG/100 ML 1,000 MG/100 ML BAG IV SCH (14:05)
--- NOTE | 2024-10-31 14:34 | ANESTHESIA POST OP EVALUATION ---
Anesthesia Post Eval Post Anesthesia Eval Vitals: Last Vital Signs Temp 36.7 C 10/31/24 12:30 Pulse 69 10/31/24 13:15 Resp 20 10/31/24 13:15 BP 98/60 10/31/24 13:15 Pulse Ox 99 10/31/24 13:15 O2 Flow Rate 10 10/31/24 10:57 CV Function Including HR & BP: Stable Pain Control: Satisfactory Nausea & Vomiting: Negative Mental Status: Baseline Respiratory Status: Airway Patent Hydration Status: Satisfactory Anesthesia Complications: None
--- NOTE | 2024-10-31 16:54 | PROVIDER PROGRESS NOTE ---
Assessment/Plan <Buffy Zelaya - Last Filed: 10/31/24 17:49> Problem List (1) Large bowel obstruction: Assessment/Plan: Patient had right hemicolectomy with ileocolostomy this morning performed by general surgeon Dr. Larry Uriarte. The procedure had no complications, there was a mass about 2in in diameter in the right colon that likely caused the obstruction. Per operative report, Manual and visual examination of the abdomen did not reveal any other pathology. Pathology pending. Patient had rm and epidural placed for surgery this morning, will keep these in place for now. NG tube remains in place. Diet plan is NPO today, advance to full liquids tomorrow. NG tube will be removed after signs of bowel activity such as passing gas or bowel movement. Pain medication via epidural includes ropivacaine 0,5mcg per ml PRN per protocol. Patient has pain pump beside bed. Managed by anesthesia. Discussed with patient need to ambulate and use chewing gum to get bowels back to normal activity. Patient expressed understanding, but would like to rest today. Recheck CBC CMP tomorrow. (2) Hyperkalemia: Assessment/Plan: Resolved, potassium at 4.3 this morning. Recheck CMP and CBC tomorrow. (3) Urethral stricture: Assessment/Plan: Rm placed this morning, will keep in place for now. Current Meds Current Meds: Current Medications Generic Name Dose Route Start Last Admin Trade Name Freq PRN Reason Stop Dose Admin Diphenhydramine HCl 25 mg 10/31/24 11:26 Diphenhydramine Inj 50 Mg/Ml Vial IVP 11/01/24 11:26 Q6H PRN ITCHING Diphenhydramine HCl 25 mg 10/31/24 11:29 Diphenhydramine Inj 50 Mg/Ml Vial IVP 11/01/24 11:29 Q6H PRN ITCHING Diphenhydramine HCl 12.5 - 25 mg 10/31/24 11:31 Diphenhydramine Inj 50 Mg/Ml Vial IVP Q6HR PRN ITCHING Ephedrine Sulfate 5 mg 10/31/24 11:26 Ephedrine 50 Mg/Ml Vial IVP 11/01/24 11:26 Q5M PRN For SBP<100;give until SBP>100 Ephedrine Sulfate 5 mg 10/31/24 11:31 Ephedrine 50 Mg/Ml Vial IVP Q5M PRN For SBP<100;give until SBP>100 Lactated Ringer's 1,000 mls @ 50 mls/hr 10/31/24 11:00 10/31/24 14:02 Lr IV Not Given .Q20H THEO Piperacillin Sod/Tazobactam 100 mls @ 200 mls/hr 10/31/24 14:00 Sod 3.375 gm/ Sodium Chloride IV 11/02/24 14:29 ONCE THEO Ropivacaine 200 mg in 100 mls @ 0 mls/hr 10/31/24 11:31 Naropin 0.2% EP PRN PRN PAIN Protocol Per Protocol Acetaminophen 1,000 mg in 100 mls @ 400 mls/hr 10/31/24 14:00 10/31/24 14:20 Acetaminophen IV Infused Q8HR THEO Infusion Metoclopramide HCl 10 mg 10/31/24 11:26 Metoclopramide 10 Mg/2 Ml Vial IVP 11/01/24 11:26 Q6HR PRN Nausea / Vomiting Nalbuphine HCl 5 mg 10/31/24 11:26 Nalbuphine 10 Mg/Ml Amp IVP 11/01/24 11:26 Q4H PRN ITCHING Nalbuphine HCl 2.5 - 5 mg 10/31/24 11:31 Nalbuphine 10 Mg/Ml Amp IVP Q4H PRN ITCHING Naloxone HCl 0.1 mg 10/31/24 11:26 Naloxone 0.4 Mg/Ml Vial IVP 11/01/24 11:26 Q2M PRN RR < 8 Naloxone HCl 0.1 mg 10/31/24 11:31 Naloxone 0.4 Mg/Ml Vial IVP Q2M PRN RR<8 Ondansetron HCl 4 mg 10/31/24 11:26 Ondansetron 4 Mg/2 Ml Vial IVP 11/01/24 11:26 Q6HR PRN Nausea / Vomiting Ondansetron HCl 4 mg 10/31/24 11:31 Ondansetron 4 Mg/2 Ml Vial IVP Q6HR PRN Nausea / Vomiting Lab Result Lab results reviewed: Yes 10/31/24 05:16 10/31/24 05:16 Additional Planning Condition/Complexity: Stable <VANESSA Mancuso - Last Filed: 10/31/24 17:50> Problem List (1) Large bowel obstruction: (2) Hyperkalemia: (3) Urethral stricture: Current Meds Current Meds: Current Medications Generic Name Dose Route Start Last Admin Trade Name Freq PRN Reason Stop Dose Admin Diphenhydramine HCl 25 mg 10/31/24 11:26 Diphenhydramine Inj 50 Mg/Ml Vial IVP 11/01/24 11:26 Q6H PRN ITCHING Diphenhydramine HCl 25 mg 10/31/24 11:29 Diphenhydramine Inj 50 Mg/Ml Vial IVP 11/01/24 11:29 Q6H PRN ITCHING Diphenhydramine HCl 12.5 - 25 mg 10/31/24 11:31 Diphenhydramine Inj 50 Mg/Ml Vial IVP Q6HR PRN ITCHING Ephedrine Sulfate 5 mg 10/31/24 11:26 Ephedrine 50 Mg/Ml Vial IVP 11/01/24 11:26 Q5M PRN For SBP<100;give until SBP>100 Ephedrine Sulfate 5 mg 10/31/24 11:31 Ephedrine 50 Mg/Ml Vial IVP Q5M PRN For SBP<100;give until SBP>100 Lactated Ringer's 1,000 mls @ 50 mls/hr 10/31/24 11:00 10/31/24 14:02 Lr IV Not Given .Q20H THEO Piperacillin Sod/Tazobactam 100 mls @ 200 mls/hr 10/31/24 14:00 Sod 3.375 gm/ Sodium Chloride IV 11/02/24 14:29 ONCE THEO Ropivacaine 200 mg in 100 mls @ 0 mls/hr 10/31/24 11:31 Naropin 0.2% EP PRN PRN PAIN Protocol Per Protocol Acetaminophen 1,000 mg in 100 mls @ 400 mls/hr 10/31/24 14:00 10/31/24 14:20 Acetaminophen IV Infused Q8HR THEO Infusion Metoclopramide HCl 10 mg 10/31/24 11:26 Metoclopramide 10 Mg/2 Ml Vial IVP 11/01/24 11:26 Q6HR PRN Nausea / Vomiting Nalbuphine HCl 5 mg 10/31/24 11:26 Nalbuphine 10 Mg/Ml Amp IVP 11/01/24 11:26 Q4H PRN ITCHING Nalbuphine HCl 2.5 - 5 mg 10/31/24 11:31 Nalbuphine 10 Mg/Ml Amp IVP Q4H PRN ITCHING Naloxone HCl 0.1 mg 10/31/24 11:26 Naloxone 0.4 Mg/Ml Vial IVP 11/01/24 11:26 Q2M PRN RR < 8 Naloxone HCl 0.1 mg 10/31/24 11:31 Naloxone 0.4 Mg/Ml Vial IVP Q2M PRN RR<8 Ondansetron HCl 4 mg 10/31/24 11:26 Ondansetron 4 Mg/2 Ml Vial IVP 11/01/24 11:26 Q6HR PRN Nausea / Vomiting Ondansetron HCl 4 mg 10/31/24 11:31 Ondansetron 4 Mg/2 Ml Vial IVP Q6HR PRN Nausea / Vomiting Subjective <Buffy Zelaya - Last Filed: 10/31/24 17:49> Subjective Patient Reports: Resting Comfortably and Other (Patient notes 210 abdominal pain, worsened with certain movements. ) Objective <Buffy Zelaya - Last Filed: 10/31/24 17:49> Vital Signs: Vital Signs - 24 hr 10/30/24 17:11 10/30/24 17:40 10/30/24 20:49 Temperature 36.1 C L 36.4 C L 36.4 C L Temperature Source Temporal Artery Scan Temporal Artery Scan Temporal Artery Scan Pulse Rate 76 Pulse Rate [Brachial] 85 81 Respiratory Rate 21 20 16 Blood Pressure 117/83 Blood Pressure [Left Brachial artery] 133/84 H 123/79 O2 Saturation 99 99 98 O2 Source Room air Room air Room air If not protocol: Oxygen Flow, liters/minute Sedation scale 0-Fully awake 0-Fully awake Pain Intensity 2 0 0 Pain Intensity [Abdomen] 10/31/24 00:00 10/31/24 05:00 10/31/24 10:57 Temperature 36.4 C L 36.4 C L 36.7 C Temperature Source Temporal Artery Scan Temporal Artery Scan Pulse Rate Pulse Rate [Brachial] 70 81 74 Respiratory Rate 16 18 22 Blood Pressure Blood Pressure [Left Brachial artery] 119/74 114/69 125/81 O2 Saturation 98 98 O2 Source Room air Room air Non-rebreather mask If not protocol: Oxygen Flow, liters/minute 10 Sedation scale 0-Fully awake 0-Fully awake Pain Intensity Pain Intensity [Abdomen] 10/31/24 11:00 10/31/24 11:05 10/31/24 11:10 Temperature 36.3 C L Temperature Source Pulse Rate 75 80 81 Pulse Rate [Brachial] Respiratory Rate 21 18 20 Blood Pressure 130/80 120/92 H 118/77 Blood Pressure [Left Brachial artery] O2 Saturation 99 99 99 O2 Source If not protocol: Oxygen Flow, liters/minute Sedation scale Pain Intensity Pain Intensity [Abdomen] 10/31/24 11:15 10/31/24 11:20 10/31/24 11:25 Temperature 36.3 C L Temperature Source Pulse Rate 82 78 79 Pulse Rate [Brachial] Respiratory Rate 20 20 20 Blood Pressure 114/87 119/81 116/77 Blood Pressure [Left Brachial artery] O2 Saturation 99 99 99 O2 Source If not protocol: Oxygen Flow, liters/minute Sedation scale Pain Intensity Pain Intensity [Abdomen] 10/31/24 11:30 10/31/24 11:31 10/31/24 11:35 Temperature Temperature Source Pulse Rate 77 76 Pulse Rate [Brachial] 70 Respiratory Rate 18 18 20 Blood Pressure 112/77 118/77 Blood Pressure [Left Brachial artery] 103/64 O2 Saturation 99 99 98 O2 Source If not protocol: Oxygen Flow, liters/minute Sedation scale Pain Intensity Pain Intensity [Abdomen] 10/31/24 11:39 10/31/24 11:40 10/31/24 11:45 Temperature Temperature Source Pulse Rate 77 78 Pulse Rate [Brachial] Respiratory Rate 18 18 Blood Pressure 120/73 110/74 Blood Pressure [Left Brachial artery] O2 Saturation 99 97 O2 Source If not protocol: Oxygen Flow, liters/minute Sedation scale Pain Intensity 7 Pain Intensity [Abdomen] 10/31/24 11:50 10/31/24 11:55 10/31/24 12:00 Temperature Temperature Source Pulse Rate 79 78 Pulse Rate [Brachial] Respiratory Rate 20 18 Blood Pressure 114/76 96/66 Blood Pressure [Left Brachial artery] O2 Saturation 98 97 O2 Source If not protocol: Oxygen Flow, liters/minute Sedation scale Pain Intensity 6 Pain Intensity [Abdomen] 10/31/24 12:00 10/31/24 12:00 10/31/24 12:05 Temperature Temperature Source Pulse Rate 75 74 Pulse Rate [Brachial] Respiratory Rate 20 18 Blood Pressure 99/66 97/62 Blood Pressure [Left Brachial artery] O2 Saturation 97 97 O2 Source If not protocol: Oxygen Flow, liters/minute Sedation scale Pain Intensity Pain Intensity [Abdomen] 7 10/31/24 12:30 10/31/24 12:30 10/31/24 12:30 Temperature 36.7 C Temperature Source Temporal Artery Scan Pulse Rate Pulse Rate [Brachial] 70 Respiratory Rate 20 Blood Pressure Blood Pressure [Left Brachial artery] 103/64 O2 Saturation 99 O2 Source Room air If not protocol: Oxygen Flow, liters/minute Sedation scale 0-Fully awake Pain Intensity 0 0 Pain Intensity [Abdomen] 10/31/24 12:45 10/31/24 13:00 10/31/24 13:15 Temperature Temperature Source Pulse Rate Pulse Rate [Brachial] 69 70 69 Respiratory Rate 20 18 20 Blood Pressure Blood Pressure [Left Brachial artery] 106/67 98/62 98/60 O2 Saturation 98 98 99 O2 Source Room air Room air Room air If not protocol: Oxygen Flow, liters/minute Sedation scale 0-Fully awake 1-Arouses easily 1-Arouses easily Pain Intensity Pain Intensity [Abdomen] 10/31/24 14:30 10/31/24 15:15 10/31/24 16:00 Temperature 36.5 C 36.5 C Temperature Source Temporal Artery Scan Temporal Artery Scan Pulse Rate Pulse Rate [Brachial] 70 67 Respiratory Rate 20 18 Blood Pressure Blood Pressure [Left Brachial artery] 95/56 L 94/59 L O2 Saturation 96 97 O2 Source Room air Room air If not protocol: Oxygen Flow, liters/minute Sedation scale 1-Arouses easily 1-Arouses easily Pain Intensity Pain Intensity [Abdomen] 0 10/31/24 16:04 Temperature 36.4 C L Temperature Source Temporal Artery Scan Pulse Rate Pulse Rate [Brachial] 72 Respiratory Rate 16 Blood Pressure Blood Pressure [Left Brachial artery] 97/60 O2 Saturation 95 O2 Source Room air If not protocol: Oxygen Flow, liters/minute Sedation scale 1-Arouses easily Pain Intensity 0 Pain Intensity [Abdomen] Oxygen O2 Source Room air I&O (Last 24 Hrs): Intake and Output Totals x24h 10/29/24 10/30/24 10/31/24 23:59 23:59 23:59 Intake Total 1755 / 1755 2725 / 2725 Output Total 600 / 600 50 / 50 Balance 1155 / 1155 2675 / 2675 General: Alert, Oriented x3, Cooperative and No acute distress HEENT: Atraumatic, EOMI and Mucous membr. moist/pink Neck: Supple Neuro: Alert, CN 2-12 Grossly Intact and Oriented Times 3 Cardiovascular: Regular rate, No murmurs and Other (no rubs or gallops) Respiratory: Chest non-tender, Breath sounds nml and Other (no wheezing rhonchi or rales) Abdomen: Normal bowel sounds and Soft Skin: No rashes Comments/Notes: 10cm scar with staple midline abdomen Results Results: Laboratory Results WBC 7.8 x10^3/uL (4.8-10.8) 10/31/24 05:16 RBC 4.83 10^6/uL (4.70-6.10) 10/31/24 05:16 Hgb 15.0 g/dL (14.0-18.0) 10/31/24 05:16 Hct 45.7 % (42.0-52.0) 10/31/24 05:16 MCV 94.6 fL (80.0-94.0) H 10/31/24 05:16 MCH 31.1 pg (27.0-31.0) H 10/31/24 05:16 MCHC 32.8 g/dL (32.0-36.0) 10/31/24 05:16 RDW 12.8 % (12.0-15.0) 10/31/24 05:16 Plt Count 271 10^3/uL (130-450) 10/31/24 05:16 MPV 9.0 fL (7.4-11.4) 10/31/24 05:16 Neut # (Auto) 6.1 10^3/uL (1.5-6.6) 10/31/24 05:16 Lymph # (Auto) 1.0 10^3/uL (1.5-3.5) L 10/31/24 05:16 [place] # (Auto) 0.7 10^3/uL (0.0-1.0) 10/31/24 05:16 Eos # (Auto) 0.1 10^3/uL (0.0-0.7) 10/31/24 05:16 Baso # (Auto) 0.0 10^3/uL (0.0-0.1) 10/31/24 05:16 Absolute Nucleated RBC 0.00 x10^3/uL 10/31/24 05:16 Nucleated RBC % 0.0 /100WBC 10/31/24 05:16 Sodium 137 mmol/L (135-145) 10/31/24 05:16 Potassium 4.3 mmol/L (3.5-4.5) 10/31/24 05:16 Chloride 105 mmol/L (101-111) 10/31/24 05:16 Carbon Dioxide 25 mmol/L (21-32) 10/31/24 05:16 Anion Gap 7.0 (6-13) 10/31/24 05:16 BUN 15 mg/dL (6-20) 10/31/24 05:16 Creatinine 1.1 mg/dL (0.6-1.3) 10/31/24 05:16 Estimated GFR (MDRD) 69 (>89) L 10/31/24 05:16 Glucose 142 mg/dL (74-104) H 10/31/24 05:16 POC Whole Bld Glucose 100 mg/dL (70-100) 10/31/24 16:28 Calcium 8.7 mg/dL (8.5-10.3) 10/31/24 05:16 Total Bilirubin 0.6 mg/dL (0.2-1.0) 10/30/24 13:23 AST 15 IU/L (10-42) 10/30/24 13:23 ALT 14 IU/L (10-60) 10/30/24 13:23 Alkaline Phosphatase 73 IU/L (42-121) 10/30/24 13:23 Total Protein 8.3 g/dL (6.4-8.9) 10/30/24 13:23 Albumin 4.7 g/dL (3.2-5.5) 10/30/24 13:23 Globulin 3.6 g/dL (2.1-4.2) 10/30/24 13:23 Albumin/Globulin Ratio 1.3 (1.0-2.2) 10/30/24 13:23 Lipase 18 U/L (11-82) 10/30/24 13:23 Urine Color DARK YELLOW 10/30/24 22:10 Urine Clarity CLEAR (CLEAR) 10/30/24 22:10 Urine pH 5.5 PH (5.0-7.5) 10/30/24 22:10 Ur Specific [place] 1.020 (1.002-1.030) 10/30/24 22:10 Urine Protein TRACE mg/dL (NEGATIVE) 10/30/24 22:10 Urine Glucose (UA) NEGATIVE mg/dL (NEGATIVE) 10/30/24 22:10 Urine Ketones 15 mg/dL (NEGATIVE) H 10/30/24 22:10 Urine Occult Blood NEGATIVE (NEGATIVE) 10/30/24 22:10 Urine Nitrite NEGATIVE (NEGATIVE) 10/30/24 22:10 Urine Bilirubin SMALL (NEGATIVE) H 10/30/24 22:10 Urine Urobilinogen 0.2 (NORMAL) E.U./dL (NORMAL) 10/30/24 22:10 Ur Leukocyte Esterase NEGATIVE (NEGATIVE) 10/30/24 22:10 Ur Microscopic Review NOT INDICATED 10/30/24 22:10 Urine Culture Comments NOT INDICATED 10/30/24 22:10 Procedures Procedures: Procedures INSPECTION OF LOWER INTESTINAL TRACT, ENDO (09/16/15) <VANESSA Mancuso - Last Filed: 10/31/24 17:50> Vital Signs: Vital Signs - 24 hr 10/30/24 17:11 10/30/24 17:40 10/30/24 20:49 Temperature 36.1 C L 36.4 C L 36.4 C L Temperature Source Temporal Artery Scan Temporal Artery Scan Temporal Artery Scan Pulse Rate 76 Pulse Rate [Brachial] 85 81 Respiratory Rate 21 20 16 Blood Pressure 117/83 Blood Pressure [Left Brachial artery] 133/84 H 123/79 O2 Saturation 99 99 98 O2 Source Room air Room air Room air If not protocol: Oxygen Flow, liters/minute Sedation scale 0-Fully awake 0-Fully awake Pain Intensity 2 0 0 Pain Intensity [Abdomen] 10/31/24 00:00 10/31/24 05:00 10/31/24 10:57 Temperature 36.4 C L 36.4 C L 36.7 C Temperature Source Temporal Artery Scan Temporal Artery Scan Pulse Rate Pulse Rate [Brachial] 70 81 74 Respiratory Rate 16 18 22 Blood Pressure Blood Pressure [Left Brachial artery] 119/74 114/69 125/81 O2 Saturation 98 98 O2 Source Room air Room air Non-rebreather mask If not protocol: Oxygen Flow, liters/minute 10 Sedation scale 0-Fully awake 0-Fully awake Pain Intensity Pain Intensity [Abdomen] 10/31/24 11:00 10/31/24 11:05 10/31/24 11:10 Temperature 36.3 C L Temperature Source Pulse Rate 75 80 81 Pulse Rate [Brachial] Respiratory Rate 21 18 20 Blood Pressure 130/80 120/92 H 118/77 Blood Pressure [Left Brachial artery] O2 Saturation 99 99 99 O2 Source If not protocol: Oxygen Flow, liters/minute Sedation scale Pain Intensity Pain Intensity [Abdomen] 10/31/24 11:15 10/31/24 11:20 10/31/24 11:25 Temperature 36.3 C L Temperature Source Pulse Rate 82 78 79 Pulse Rate [Brachial] Respiratory Rate 20 20 20 Blood Pressure 114/87 119/81 116/77 Blood Pressure [Left Brachial artery] O2 Saturation 99 99 99 O2 Source If not protocol: Oxygen Flow, liters/minute Sedation scale Pain Intensity Pain Intensity [Abdomen] 10/31/24 11:30 10/31/24 11:31 10/31/24 11:35 Temperature Temperature Source Pulse Rate 77 76 Pulse Rate [Brachial] 70 Respiratory Rate 18 18 20 Blood Pressure 112/77 118/77 Blood Pressure [Left Brachial artery] 103/64 O2 Saturation 99 99 98 O2 Source If not protocol: Oxygen Flow, liters/minute Sedation scale Pain Intensity Pain Intensity [Abdomen] 10/31/24 11:39 10/31/24 11:40 10/31/24 11:45 Temperature Temperature Source Pulse Rate 77 78 Pulse Rate [Brachial] Respiratory Rate 18 18 Blood Pressure 120/73 110/74 Blood Pressure [Left Brachial artery] O2 Saturation 99 97 O2 Source If not protocol: Oxygen Flow, liters/minute Sedation scale Pain Intensity 7 Pain Intensity [Abdomen] 10/31/24 11:50 10/31/24 11:55 10/31/24 12:00 Temperature Temperature Source Pulse Rate 79 78 Pulse Rate [Brachial] Respiratory Rate 20 18 Blood Pressure 114/76 96/66 Blood Pressure [Left Brachial artery] O2 Saturation 98 97 O2 Source If not protocol: Oxygen Flow, liters/minute Sedation scale Pain Intensity 6 Pain Intensity [Abdomen] 10/31/24 12:00 10/31/24 12:00 10/31/24 12:05 Temperature Temperature Source Pulse Rate 75 74 Pulse Rate [Brachial] Respiratory Rate 20 18 Blood Pressure 99/66 97/62 Blood Pressure [Left Brachial artery] O2 Saturation 97 97 O2 Source If not protocol: Oxygen Flow, liters/minute Sedation scale Pain Intensity Pain Intensity [Abdomen] 7 10/31/24 12:30 10/31/24 12:30 10/31/24 12:30 Temperature 36.7 C Temperature Source Temporal Artery Scan Pulse Rate Pulse Rate [Brachial] 70 Respiratory Rate 20 Blood Pressure Blood Pressure [Left Brachial artery] 103/64 O2 Saturation 99 O2 Source Room air If not protocol: Oxygen Flow, liters/minute Sedation scale 0-Fully awake Pain Intensity 0 0 Pain Intensity [Abdomen] 10/31/24 12:45 10/31/24 13:00 10/31/24 13:15 Temperature Temperature Source Pulse Rate Pulse Rate [Brachial] 69 70 69 Respiratory Rate 20 18 20 Blood Pressure Blood Pressure [Left Brachial artery] 106/67 98/62 98/60 O2 Saturation 98 98 99 O2 Source Room air Room air Room air If not protocol: Oxygen Flow, liters/minute Sedation scale 0-Fully awake 1-Arouses easily 1-Arouses easily Pain Intensity Pain Intensity [Abdomen] 10/31/24 14:30 10/31/24 15:15 10/31/24 16:00 Temperature 36.5 C 36.5 C Temperature Source Temporal Artery Scan Temporal Artery Scan Pulse Rate Pulse Rate [Brachial] 70 67 Respiratory Rate 20 18 Blood Pressure Blood Pressure [Left Brachial artery] 95/56 L 94/59 L O2 Saturation 96 97 O2 Source Room air Room air If not protocol: Oxygen Flow, liters/minute Sedation scale 1-Arouses easily 1-Arouses easily Pain Intensity Pain Intensity [Abdomen] 0 10/31/24 16:04 Temperature 36.4 C L Temperature Source Temporal Artery Scan Pulse Rate Pulse Rate [Brachial] 72 Respiratory Rate 16 Blood Pressure Blood Pressure [Left Brachial artery] 97/60 O2 Saturation 95 O2 Source Room air If not protocol: Oxygen Flow, liters/minute Sedation scale 1-Arouses easily Pain Intensity 0 Pain Intensity [Abdomen] Oxygen O2 Source Room air I&O (Last 24 Hrs): Intake and Output Totals x24h 10/29/24 10/30/24 10/31/24 23:59 23:59 23:59 Intake Total 1755 / 1755 2725 / 2725 Output Total 600 / 600 50 / 50 Balance 1155 / 1155 2675 / 2675 Results Results: Laboratory Results WBC 7.8 x10^3/uL (4.8-10.8) 10/31/24 05:16 RBC 4.83 10^6/uL (4.70-6.10) 10/31/24 05:16 Hgb 15.0 g/dL (14.0-18.0) 10/31/24 05:16 Hct 45.7 % (42.0-52.0) 10/31/24 05:16 MCV 94.6 fL (80.0-94.0) H 10/31/24 05:16 MCH 31.1 pg (27.0-31.0) H 10/31/24 05:16 MCHC 32.8 g/dL (32.0-36.0) 10/31/24 05:16 RDW 12.8 % (12.0-15.0) 10/31/24 05:16 Plt Count 271 10^3/uL (130-450) 10/31/24 05:16 MPV 9.0 fL (7.4-11.4) 10/31/24 05:16 Neut # (Auto) 6.1 10^3/uL (1.5-6.6) 10/31/24 05:16 Lymph # (Auto) 1.0 10^3/uL (1.5-3.5) L 10/31/24 05:16 [place] # (Auto) 0.7 10^3/uL (0.0-1.0) 10/31/24 05:16 Eos # (Auto) 0.1 10^3/uL (0.0-0.7) 10/31/24 05:16 Baso # (Auto) 0.0 10^3/uL (0.0-0.1) 10/31/24 05:16 Absolute Nucleated RBC 0.00 x10^3/uL 10/31/24 05:16 Nucleated RBC % 0.0 /100WBC 10/31/24 05:16 Sodium 137 mmol/L (135-145) 10/31/24 05:16 Potassium 4.3 mmol/L (3.5-4.5) 10/31/24 05:16 Chloride 105 mmol/L (101-111) 10/31/24 05:16 Carbon Dioxide 25 mmol/L (21-32) 10/31/24 05:16 Anion Gap 7.0 (6-13) 10/31/24 05:16 BUN 15 mg/dL (6-20) 10/31/24 05:16 Creatinine 1.1 mg/dL (0.6-1.3) 10/31/24 05:16 Estimated GFR (MDRD) 69 (>89) L 10/31/24 05:16 Glucose 142 mg/dL (74-104) H 10/31/24 05:16 POC Whole Bld Glucose 100 mg/dL (70-100) 10/31/24 16:28 Calcium 8.7 mg/dL (8.5-10.3) 10/31/24 05:16 Total Bilirubin 0.6 mg/dL (0.2-1.0) 10/30/24 13:23 AST 15 IU/L (10-42) 10/30/24 13:23 ALT 14 IU/L (10-60) 10/30/24 13:23 Alkaline Phosphatase 73 IU/L (42-121) 10/30/24 13:23 Total Protein 8.3 g/dL (6.4-8.9) 10/30/24 13:23 Albumin 4.7 g/dL (3.2-5.5) 10/30/24 13:23 Globulin 3.6 g/dL (2.1-4.2) 10/30/24 13:23 Albumin/Globulin Ratio 1.3 (1.0-2.2) 10/30/24 13:23 Lipase 18 U/L (11-82) 10/30/24 13:23 Urine Color DARK YELLOW 10/30/24 22:10 Urine Clarity CLEAR (CLEAR) 10/30/24 22:10 Urine pH 5.5 PH (5.0-7.5) 10/30/24 22:10 Ur Specific [place] 1.020 (1.002-1.030) 10/30/24 22:10 Urine Protein TRACE mg/dL (NEGATIVE) 10/30/24 22:10 Urine Glucose (UA) NEGATIVE mg/dL (NEGATIVE) 10/30/24 22:10 Urine Ketones 15 mg/dL (NEGATIVE) H 10/30/24 22:10 Urine Occult Blood NEGATIVE (NEGATIVE) 10/30/24 22:10 Urine Nitrite NEGATIVE (NEGATIVE) 10/30/24 22:10 Urine Bilirubin SMALL (NEGATIVE) H 10/30/24 22:10 Urine Urobilinogen 0.2 (NORMAL) E.U./dL (NORMAL) 10/30/24 22:10 Ur Leukocyte Esterase NEGATIVE (NEGATIVE) 10/30/24 22:10 Ur Microscopic Review NOT INDICATED 10/30/24 22:10 Urine Culture Comments NOT INDICATED 10/30/24 22:10 Procedures Procedures: Procedures INSPECTION OF LOWER INTESTINAL TRACT, ENDO (09/16/15) Current Medications <Buffy Zelaya - Last Filed: 10/31/24 17:49> Current Medications Current Medications: Current Medications Generic Name Dose Route Start Last Admin Trade Name Freq PRN Reason Stop Dose Admin Diphenhydramine HCl 25 mg 10/31/24 11:26 Diphenhydramine Inj 50 Mg/Ml Vial IVP 11/01/24 11:26 Q6H PRN ITCHING Diphenhydramine HCl 25 mg 10/31/24 11:29 Diphenhydramine Inj 50 Mg/Ml Vial IVP 11/01/24 11:29 Q6H PRN ITCHING Diphenhydramine HCl 12.5 - 25 mg 10/31/24 11:31 Diphenhydramine Inj 50 Mg/Ml Vial IVP Q6HR PRN ITCHING Ephedrine Sulfate 5 mg 10/31/24 11:26 Ephedrine 50 Mg/Ml Vial IVP 11/01/24 11:26 Q5M PRN For SBP<100;give until SBP>100 Ephedrine Sulfate 5 mg 10/31/24 11:31 Ephedrine 50 Mg/Ml Vial IVP Q5M PRN For SBP<100;give until SBP>100 Lactated Ringer's 1,000 mls @ 50 mls/hr 10/31/24 11:00 10/31/24 14:02 Lr IV Not Given .Q20H THEO Piperacillin Sod/Tazobactam 100 mls @ 200 mls/hr 10/31/24 14:00 Sod 3.375 gm/ Sodium Chloride IV 11/02/24 14:29 ONCE THEO Ropivacaine 200 mg in 100 mls @ 0 mls/hr 10/31/24 11:31 Naropin 0.2% EP PRN PRN PAIN Protocol Per Protocol Acetaminophen 1,000 mg in 100 mls @ 400 mls/hr 10/31/24 14:00 10/31/24 14:20 Acetaminophen IV Infused Q8HR THEO Infusion Metoclopramide HCl 10 mg 10/31/24 11:26 Metoclopramide 10 Mg/2 Ml Vial IVP 11/01/24 11:26 Q6HR PRN Nausea / Vomiting Nalbuphine HCl 5 mg 10/31/24 11:26 Nalbuphine 10 Mg/Ml Amp IVP 11/01/24 11:26 Q4H PRN ITCHING Nalbuphine HCl 2.5 - 5 mg 10/31/24 11:31 Nalbuphine 10 Mg/Ml Amp IVP Q4H PRN ITCHING Naloxone HCl 0.1 mg 10/31/24 11:26 Naloxone 0.4 Mg/Ml Vial IVP 11/01/24 11:26 Q2M PRN RR < 8 Naloxone HCl 0.1 mg 10/31/24 11:31 Naloxone 0.4 Mg/Ml Vial IVP Q2M PRN RR<8 Ondansetron HCl 4 mg 10/31/24 11:26 Ondansetron 4 Mg/2 Ml Vial IVP 11/01/24 11:26 Q6HR PRN Nausea / Vomiting Ondansetron HCl 4 mg 10/31/24 11:31 Ondansetron 4 Mg/2 Ml Vial IVP Q6HR PRN Nausea / Vomiting <VANESSA Mancuso - Last Filed: 10/31/24 17:50> Current Medications Current Medications: Current Medications Generic Name Dose Route Start Last Admin Trade Name Freq PRN Reason Stop Dose Admin Diphenhydramine HCl 25 mg 10/31/24 11:26 Diphenhydramine Inj 50 Mg/Ml Vial IVP 11/01/24 11:26 Q6H PRN ITCHING Diphenhydramine HCl 25 mg 10/31/24 11:29 Diphenhydramine Inj 50 Mg/Ml Vial IVP 11/01/24 11:29 Q6H PRN ITCHING Diphenhydramine HCl 12.5 - 25 mg 10/31/24 11:31 Diphenhydramine Inj 50 Mg/Ml Vial IVP Q6HR PRN ITCHING Ephedrine Sulfate 5 mg 10/31/24 11:26 Ephedrine 50 Mg/Ml Vial IVP 11/01/24 11:26 Q5M PRN For SBP<100;give until SBP>100 Ephedrine Sulfate 5 mg 10/31/24 11:31 Ephedrine 50 Mg/Ml Vial IVP Q5M PRN For SBP<100;give until SBP>100 Lactated Ringer's 1,000 mls @ 50 mls/hr 10/31/24 11:00 10/31/24 14:02 Lr IV Not Given .Q20H THEO Piperacillin Sod/Tazobactam 100 mls @ 200 mls/hr 10/31/24 14:00 Sod 3.375 gm/ Sodium Chloride IV 11/02/24 14:29 ONCE THEO Ropivacaine 200 mg in 100 mls @ 0 mls/hr 10/31/24 11:31 Naropin 0.2% EP PRN PRN PAIN Protocol Per Protocol Acetaminophen 1,000 mg in 100 mls @ 400 mls/hr 10/31/24 14:00 10/31/24 14:20 Acetaminophen IV Infused Q8HR THEO Infusion Metoclopramide HCl 10 mg 10/31/24 11:26 Metoclopramide 10 Mg/2 Ml Vial IVP 11/01/24 11:26 Q6HR PRN Nausea / Vomiting Nalbuphine HCl 5 mg 10/31/24 11:26 Nalbuphine 10 Mg/Ml Amp IVP 11/01/24 11:26 Q4H PRN ITCHING Nalbuphine HCl 2.5 - 5 mg 10/31/24 11:31 Nalbuphine 10 Mg/Ml Amp IVP Q4H PRN ITCHING Naloxone HCl 0.1 mg 10/31/24 11:26 Naloxone 0.4 Mg/Ml Vial IVP 11/01/24 11:26 Q2M PRN RR < 8 Naloxone HCl 0.1 mg 10/31/24 11:31 Naloxone 0.4 Mg/Ml Vial IVP Q2M PRN RR<8 Ondansetron HCl 4 mg 10/31/24 11:26 Ondansetron 4 Mg/2 Ml Vial IVP 11/01/24 11:26 Q6HR PRN Nausea / Vomiting Ondansetron HCl 4 mg 10/31/24 11:31 Ondansetron 4 Mg/2 Ml Vial IVP Q6HR PRN Nausea / Vomiting
[2024-11-01] MEDS ORDERED: ROPIVACAINE EP ONE (02:05)
[2024-11-01] MEDS: ROPIVACAINE 0.2% 200 MG/100 ML BAG EP PRN (02:20)
[2024-11-01] MEDS ORDERED: DEXMEDETOMIDINE 200 MCG/2 ML VIAL ONE ×2 (02:26→06:40)
[2024-11-01 05:54] LABS: BASOPHILS % (AUTO) 0.3 %; HCT - HEMATOCRIT 38.6 % (42.0-52.0); HGB - HEMOGLOBIN 12.6 g/dL (14.0-18.0); LYMPHOCYTES # (AUTO) 0.6 10^3/uL (1.5-3.5); LYMPHOCYTES % (AUTO) 8.4 %; MEAN CORPUSCULAR HEMOGLOBIN 30.7 pg (27.0-31.0); MEAN CORPUSCULAR HGB CONC 32.6 g/dL (32.0-36.0); MEAN CORPUSCULAR VOLUME 94.1 fL (80.0-94.0); MEAN PLATELET VOLUME 9.2 fL (7.4-11.4); MONOCYTES # (AUTO) 0.8 10^3/uL (0.0-1.0); MONOCYTES % (AUTO) 10.6 %; NEUTROPHILS # (AUTO) 6.2 10^3/uL (1.5-6.6); NEUTROPHILS % (AUTO) 80.6 %; PLT - PLATELET COUNT 223 10^3/uL (130-450); RED CELL DISTRIBUTION WIDTH 12.7 % (12.0-15.0); WHITE BLOOD COUNT 7.6 x10^3/uL (4.8-10.8)
[2024-11-01 06:09] LABS: ALBUMIN 3.4 g/dL (3.2-5.5); ALBUMIN/GLOBULIN RATIO 1.4 (1.0-2.2); BILIRUBIN,TOTAL 0.4 mg/dL (0.2-1.0); CALCIUM 7.9 mg/dL (8.5-10.3); POTASSIUM 4.2 mmol/L (3.5-4.5); TOTAL PROTEIN 5.9 g/dL (6.4-8.9)
[2024-11-01] MEDS ORDERED: ROPIVACAINE 0.2% 200 MG/100 ML BAG EP ONE (06:39)
[2024-11-01 08:09] LABS: ADENOVIRUS F 40/41 Not Detected (Not Detected); ASTROVIRUS Not Detected (Not Detected); C DIFFICILE TOXIN A/B Not Detected (Not Detected); CAMPYLOBACTER Not Detected (Not Detected); CRYPTOSPORIDIUM Not Detected (Not Detected); CYCLOSPORA CAYETANENSIS Not Detected (Not Detected); ENTAMOEBA HISTOLYTICA Not Detected (Not Detected); ENTEROAGGREGATIVE E COLI Not Detected (Not Detected); ENTEROPATHOGENIC E COLI Not Detected (Not Detected); ENTEROTOXIGENIC E COLI Not Detected (Not Detected); GIARDIA LAMBLIA Not Detected (Not Detected); NOROVIRUS GI/GII Not Detected (Not Detected); PLESIOMONAS SHIGELLOIDES Not Detected (Not Detected); ROTAVIRUS A Not Detected (Not Detected); SALMONELLA Not Detected (Not Detected); SAPOVIRUS Not Detected (Not Detected); SHIGA-TOXIN-PRODUCING E COLI Not Detected (Not Detected); SHIGELLA/ENTEROINVASIVE E COLI Not Detected (Not Detected); VIBRIO Not Detected (Not Detected); VIBRIO CHOLERAE Not Detected (Not Detected); YERSINIA ENTEROCOLITICA Not Detected (Not Detected)
--- NOTE | 2024-11-01 10:24 | PROVIDER PROGRESS NOTE ---
Assessment/Plan <Buffy Zelaya - Last Filed: 11/01/24 13:12> Problem List (1) Large bowel obstruction: Assessment/Plan: P/o day 1, right tono colectomy with ileocolonic anastomoses. Patient tolerated soft diet this morning, not passing gas or had bowel movement yet. He walked around this morning without problem, pain is well controlled, patient denies nausea. Patient has epidural CHARRER pump with ropivacaine, will keep this in 1-2 more days. Discontinue NG tube given patient tolerating soft diet well. Continue to encourage activity, monitor for passing gas or nausea. Continue epidural CHARRER pump. Awaiting return of bowel function. Appreciate surgery input. (2) Urethral stricture: Assessment/Plan: Patient able to ambulate well, will remove rm catheter today. 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 Current Meds Current Meds: Current Medications Generic Name Dose Route Start Last Admin Trade Name Freq PRN Reason Stop Dose Admin Diphenhydramine HCl 25 mg 10/31/24 11:26 Diphenhydramine Inj 50 Mg/Ml Vial IVP 11/01/24 11:26 Q6H PRN ITCHING Diphenhydramine HCl 25 mg 10/31/24 11:29 Diphenhydramine Inj 50 Mg/Ml Vial IVP 11/01/24 11:29 Q6H PRN ITCHING Hydromorphone HCl 0.5 mg 11/01/24 06:30 Hydromorphone 0.5 Mg/0.5 Ml Syringe IVP Q2H PRN Severe Pain (Level 7-10) Piperacillin Sod/Tazobactam 100 mls @ 200 mls/hr 10/31/24 14:00 Sod 3.375 gm/ Sodium Chloride IV 11/02/24 14:29 ONCE THEO Ropivacaine 200 mg in 100 mls @ 0 mls/hr 10/31/24 11:31 11/01/24 05:55 Naropin 0.2% EP 8 mls/hr PRN PRN Administration PAIN Protocol Per Protocol Acetaminophen 1,000 mg in 100 mls @ 400 mls/hr 10/31/24 14:00 11/01/24 06:27 Acetaminophen IV Infused Q8HR THEO Infusion Metoclopramide HCl 10 mg 10/31/24 11:26 Metoclopramide 10 Mg/2 Ml Vial IVP 11/01/24 11:26 Q6HR PRN Nausea / Vomiting Nalbuphine HCl 5 mg 10/31/24 11:26 Nalbuphine 10 Mg/Ml Amp IVP 11/01/24 11:26 Q4H PRN ITCHING Naloxone HCl 0.1 mg 10/31/24 11:31 Naloxone 0.4 Mg/Ml Vial IVP Q2M PRN RR<8 Ondansetron HCl 4 mg 10/31/24 11:31 Ondansetron 4 Mg/2 Ml Vial IVP Q6HR PRN Nausea / Vomiting Lab Result Lab results reviewed: Yes 11/01/24 05:30 11/01/24 05:30 Additional Planning Condition/Complexity: Stable <VANESSA Mancuso - Last Filed: 11/01/24 13:18> Problem List (1) Large bowel obstruction: (2) Urethral stricture: Current Meds Current Meds: Current Medications Generic Name Dose Route Start Last Admin Trade Name Freq PRN Reason Stop Dose Admin Diphenhydramine HCl 25 mg 10/31/24 11:26 Diphenhydramine Inj 50 Mg/Ml Vial IVP 11/01/24 11:26 Q6H PRN ITCHING Diphenhydramine HCl 25 mg 10/31/24 11:29 Diphenhydramine Inj 50 Mg/Ml Vial IVP 11/01/24 11:29 Q6H PRN ITCHING Hydromorphone HCl 0.5 mg 11/01/24 06:30 Hydromorphone 0.5 Mg/0.5 Ml Syringe IVP Q2H PRN Severe Pain (Level 7-10) Piperacillin Sod/Tazobactam 100 mls @ 200 mls/hr 10/31/24 14:00 Sod 3.375 gm/ Sodium Chloride IV 11/02/24 14:29 ONCE THEO Ropivacaine 200 mg in 100 mls @ 0 mls/hr 10/31/24 11:31 11/01/24 05:55 Naropin 0.2% EP 8 mls/hr PRN PRN Administration PAIN Protocol Per Protocol Acetaminophen 1,000 mg in 100 mls @ 400 mls/hr 10/31/24 14:00 11/01/24 06:27 Acetaminophen IV Infused Q8HR THEO Infusion Metoclopramide HCl 10 mg 10/31/24 11:26 Metoclopramide 10 Mg/2 Ml Vial IVP 11/01/24 11:26 Q6HR PRN Nausea / Vomiting Nalbuphine HCl 5 mg 10/31/24 11:26 Nalbuphine 10 Mg/Ml Amp IVP 11/01/24 11:26 Q4H PRN ITCHING Naloxone HCl 0.1 mg 10/31/24 11:31 Naloxone 0.4 Mg/Ml Vial IVP Q2M PRN RR<8 Ondansetron HCl 4 mg 10/31/24 11:31 Ondansetron 4 Mg/2 Ml Vial IVP Q6HR PRN Nausea / Vomiting Subjective <Buffy Zelaya - Last Filed: 11/01/24 13:12> Subjective Patient Reports: Resting Comfortably Nursing Reports: Other (Patient had severe pain when CHARRER pump ran out, pain well controlled right now. Denies nausea, able to walk without pain. No BM or gas. ) Objective <Buffy Zelaya GRID Rick Filed: 11/01/24 13:12> Vital Signs: Vital Signs - 24 hr 10/31/24 10:57 10/31/24 11:00 10/31/24 11:05 Temperature 36.7 C Temperature Source Pulse Rate 75 80 Pulse Rate [Brachial] 74 Respiratory Rate 22 21 18 Blood Pressure 130/80 120/92 H Blood Pressure [Left Brachial artery] 125/81 O2 Saturation 99 99 O2 Source Non-rebreather mask If not protocol: Oxygen Flow, liters/minute 10 Sedation scale Pain Intensity Pain Intensity [Abdomen] 10/31/24 11:10 10/31/24 11:15 10/31/24 11:20 Temperature 36.3 C L 36.3 C L Temperature Source Pulse Rate 81 82 78 Pulse Rate [Brachial] Respiratory Rate 20 20 20 Blood Pressure 118/77 114/87 119/81 Blood Pressure [Left Brachial artery] O2 Saturation 99 99 99 O2 Source If not protocol: Oxygen Flow, liters/minute Sedation scale Pain Intensity Pain Intensity [Abdomen] 10/31/24 11:25 10/31/24 11:30 10/31/24 11:31 Temperature Temperature Source Pulse Rate 79 77 Pulse Rate [Brachial] 70 Respiratory Rate 20 18 18 Blood Pressure 116/77 112/77 Blood Pressure [Left Brachial artery] 103/64 O2 Saturation 99 99 99 O2 Source If not protocol: Oxygen Flow, liters/minute Sedation scale Pain Intensity Pain Intensity [Abdomen] 10/31/24 11:35 10/31/24 11:39 10/31/24 11:40 Temperature Temperature Source Pulse Rate 76 77 Pulse Rate [Brachial] Respiratory Rate 20 18 Blood Pressure 118/77 120/73 Blood Pressure [Left Brachial artery] O2 Saturation 98 99 O2 Source If not protocol: Oxygen Flow, liters/minute Sedation scale Pain Intensity 7 Pain Intensity [Abdomen] 10/31/24 11:45 10/31/24 11:50 10/31/24 11:55 Temperature Temperature Source Pulse Rate 78 79 78 Pulse Rate [Brachial] Respiratory Rate 18 20 18 Blood Pressure 110/74 114/76 96/66 Blood Pressure [Left Brachial artery] O2 Saturation 97 98 97 O2 Source If not protocol: Oxygen Flow, liters/minute Sedation scale Pain Intensity Pain Intensity [Abdomen] 10/31/24 12:00 10/31/24 12:00 10/31/24 12:00 Temperature Temperature Source Pulse Rate 75 Pulse Rate [Brachial] Respiratory Rate 20 Blood Pressure 99/66 Blood Pressure [Left Brachial artery] O2 Saturation 97 O2 Source If not protocol: Oxygen Flow, liters/minute Sedation scale Pain Intensity 6 Pain Intensity [Abdomen] 7 10/31/24 12:05 10/31/24 12:30 10/31/24 12:30 Temperature 36.7 C Temperature Source Temporal Artery Scan Pulse Rate 74 Pulse Rate [Brachial] 70 Respiratory Rate 18 20 Blood Pressure 97/62 Blood Pressure [Left Brachial artery] 103/64 O2 Saturation 97 99 O2 Source Room air If not protocol: Oxygen Flow, liters/minute Sedation scale 0-Fully awake Pain Intensity 0 Pain Intensity [Abdomen] 10/31/24 12:30 10/31/24 12:45 10/31/24 13:00 Temperature Temperature Source Pulse Rate Pulse Rate [Brachial] 69 70 Respiratory Rate 20 18 Blood Pressure Blood Pressure [Left Brachial artery] 106/67 98/62 O2 Saturation 98 98 O2 Source Room air Room air If not protocol: Oxygen Flow, liters/minute Sedation scale 0-Fully awake 1-Arouses easily Pain Intensity 0 Pain Intensity [Abdomen] 10/31/24 13:15 10/31/24 14:30 10/31/24 15:15 Temperature 36.5 C 36.5 C Temperature Source Temporal Artery Scan Temporal Artery Scan Pulse Rate Pulse Rate [Brachial] 69 70 67 Respiratory Rate 20 20 18 Blood Pressure Blood Pressure [Left Brachial artery] 98/60 95/56 L 94/59 L O2 Saturation 99 96 97 O2 Source Room air Room air Room air If not protocol: Oxygen Flow, liters/minute Sedation scale 1-Arouses easily 1-Arouses easily 1-Arouses easily Pain Intensity Pain Intensity [Abdomen] 10/31/24 15:31 10/31/24 16:00 10/31/24 16:04 Temperature 36.4 C L Temperature Source Temporal Artery Scan Pulse Rate Pulse Rate [Brachial] 70 72 Respiratory Rate 20 16 Blood Pressure Blood Pressure [Left Brachial artery] 90/56 L 97/60 O2 Saturation 96 95 O2 Source Room air If not protocol: Oxygen Flow, liters/minute Sedation scale 1-Arouses easily Pain Intensity 0 Pain Intensity [Abdomen] 0 10/31/24 17:00 10/31/24 18:00 10/31/24 18:58 Temperature 36.5 C 36.7 C Temperature Source Temporal Artery Scan Temporal Artery Scan Pulse Rate Pulse Rate [Brachial] 69 77 70 Respiratory Rate 18 18 18 Blood Pressure Blood Pressure [Left Brachial artery] 90/54 L 110/67 103/62 O2 Saturation 96 99 98 O2 Source Room air Room air If not protocol: Oxygen Flow, liters/minute Sedation scale 0-Fully awake 0-Fully awake Pain Intensity 0 0 Pain Intensity [Abdomen] 10/31/24 19:00 10/31/24 21:07 10/31/24 23:50 Temperature 36.9 C 36.8 C 36.5 C Temperature Source Temporal Artery Scan Temporal Artery Scan Skin Pulse Rate Pulse Rate [Brachial] 70 97 62 Respiratory Rate 18 18 12 Blood Pressure Blood Pressure [Left Brachial artery] 119/65 116/65 104/59 L O2 Saturation 97 97 97 O2 Source Room air Room air Room air If not protocol: Oxygen Flow, liters/minute Sedation scale 0-Fully awake 0-Fully awake 1-Arouses easily Pain Intensity 0 0 3 Pain Intensity [Abdomen] 10/31/24 23:50 11/01/24 04:20 11/01/24 06:13 Temperature 36.5 C 36.5 C 37.0 C Temperature Source Skin Temporal Artery Scan Pulse Rate Pulse Rate [Brachial] 62 82 89 Respiratory Rate 12 16 16 Blood Pressure Blood Pressure [Left Brachial artery] 104/59 L 120/70 117/71 O2 Saturation 97 97 97 O2 Source Room air If not protocol: Oxygen Flow, liters/minute Sedation scale 1-Arouses easily Pain Intensity Pain Intensity [Abdomen] 11/01/24 07:36 Temperature 36.6 C Temperature Source Temporal Artery Scan Pulse Rate Pulse Rate [Brachial] 86 Respiratory Rate 18 Blood Pressure Blood Pressure [Left Brachial artery] 149/70 H O2 Saturation 95 O2 Source Room air If not protocol: Oxygen Flow, liters/minute Sedation scale 0-Fully awake Pain Intensity Pain Intensity [Abdomen] Oxygen O2 Source Room air I&O (Last 24 Hrs): Intake and Output Totals x24h 10/30/24 10/31/24 11/01/24 23:59 23:59 23:59 Intake Total 1755 / 1755 3966 / 3966 1092 / 1092 Output Total 600 / 600 1250 / 1250 500 / 500 Balance 1155 / 1155 2716 / 2716 592 / 592 General: Alert, Oriented x3 and No acute distress HEENT: Atraumatic and EOMI Neck: Supple Neuro: Alert and Oriented Times 3 Cardiovascular: Regular rate and Other (regular rhythm, no murmurs rubs or gallops) Respiratory: Chest non-tender, No respiratory distress and Other (CTA, no rhonchi wheezing or rales) Abdomen: Other (tinkling, hypoactive bowel sounds) Extremities: No edema Comments/Notes: 10 cm incision with maile, healing well, no erythema or edema. Results Results: Laboratory Results WBC 7.6 x10^3/uL (4.8-10.8) 11/01/24 05:30 RBC 4.10 10^6/uL (4.70-6.10) L 11/01/24 05:30 Hgb 12.6 g/dL (14.0-18.0) L 11/01/24 05:30 Hct 38.6 % (42.0-52.0) L 11/01/24 05:30 MCV 94.1 fL (80.0-94.0) H 11/01/24 05:30 MCH 30.7 pg (27.0-31.0) 11/01/24 05:30 MCHC 32.6 g/dL (32.0-36.0) 11/01/24 05:30 RDW 12.7 % (12.0-15.0) 11/01/24 05:30 Plt Count 223 10^3/uL (130-450) 11/01/24 05:30 MPV 9.2 fL (7.4-11.4) 11/01/24 05:30 Neut # (Auto) 6.2 10^3/uL (1.5-6.6) 11/01/24 05:30 Lymph # (Auto) 0.6 10^3/uL (1.5-3.5) L 11/01/24 05:30 Bates # (Auto) 0.8 10^3/uL (0.0-1.0) 11/01/24 05:30 Eos # (Auto) 0.0 10^3/uL (0.0-0.7) 11/01/24 05:30 Baso # (Auto) 0.0 10^3/uL (0.0-0.1) 11/01/24 05:30 Absolute Nucleated RBC 0.00 x10^3/uL 11/01/24 05:30 Nucleated RBC % 0.0 /100WBC 11/01/24 05:30 Sodium 138 mmol/L (135-145) 11/01/24 05:30 Potassium 4.2 mmol/L (3.5-4.5) 11/01/24 05:30 Chloride 105 mmol/L (101-111) 11/01/24 05:30 Carbon Dioxide 27 mmol/L (21-32) 11/01/24 05:30 Anion Gap 6.0 (6-13) 11/01/24 05:30 BUN 10 mg/dL (6-20) 11/01/24 05:30 Creatinine 1.0 mg/dL (0.6-1.3) 11/01/24 05:30 Estimated GFR (MDRD) 76 (>89) L 11/01/24 05:30 Glucose 118 mg/dL (74-104) H 11/01/24 05:30 POC Whole Bld Glucose 108 mg/dL (70-100) 11/01/24 07:31 Calcium 7.9 mg/dL (8.5-10.3) L 11/01/24 05:30 Total Bilirubin 0.4 mg/dL (0.2-1.0) 11/01/24 05:30 AST 16 IU/L (10-42) 11/01/24 05:30 ALT 11 IU/L (10-60) 11/01/24 05:30 Alkaline Phosphatase 45 IU/L (42-121) 11/01/24 05:30 Total Protein 5.9 g/dL (6.4-8.9) L 11/01/24 05:30 Albumin 3.4 g/dL (3.2-5.5) 11/01/24 05:30 Globulin 2.5 g/dL (2.1-4.2) 11/01/24 05:30 Albumin/Globulin Ratio 1.4 (1.0-2.2) 11/01/24 05:30 Lipase 18 U/L (11-82) 10/30/24 13:23 Urine Color DARK YELLOW 10/30/24 22:10 Urine Clarity CLEAR (CLEAR) 10/30/24 22:10 Urine pH 5.5 PH (5.0-7.5) 10/30/24 22:10 Ur Specific [place] 1.020 (1.002-1.030) 10/30/24 22:10 Urine Protein TRACE mg/dL (NEGATIVE) 10/30/24 22:10 Urine Glucose (UA) NEGATIVE mg/dL (NEGATIVE) 10/30/24 22:10 Urine Ketones 15 mg/dL (NEGATIVE) H 10/30/24 22:10 Urine Occult Blood NEGATIVE (NEGATIVE) 10/30/24 22:10 Urine Nitrite NEGATIVE (NEGATIVE) 10/30/24 22:10 Urine Bilirubin SMALL (NEGATIVE) H 10/30/24 22:10 Urine Urobilinogen 0.2 (NORMAL) E.U./dL (NORMAL) 10/30/24 22:10 Ur Leukocyte Esterase NEGATIVE (NEGATIVE) 10/30/24 22:10 Ur Microscopic Review NOT INDICATED 10/30/24 22:10 Urine Culture Comments NOT INDICATED 10/30/24 22:10 Stl C. cayetanensis PCR Not Detected (Not Detected) 10/30/24 22:10 Stool Rotavirus A PCR Not Detected (Not Detected) 10/30/24 22:10 Stl Adenov F 40/41 PCR Not Detected (Not Detected) 10/30/24 22:10 Stool Astrovirus (PCR) Not Detected (Not Detected) 10/30/24 22:10 Stool Campylobacter PCR Not Detected (Not Detected) 10/30/24 22:10 Stl C. diff Tox A/B PCR Not Detected (Not Detected) 10/30/24 22:10 Stool Cryptosporidium PCR Not Detected (Not Detected) 10/30/24 22:10 Stl Sh Tox Pr E STEC PCR Not Detected (Not Detected) 10/30/24 22:10 Stool E coli O157 PCR Not applicable (Not Detected) 10/30/24 22:10 Stl Enterotoxigenic E PCR Not Detected (Not Detected) 10/30/24 22:10 Stool EPEC (PCR) Not Detected (Not Detected) 10/30/24 22:10 Stl E. histolytica PCR Not Detected (Not Detected) 10/30/24 22:10 Stool Giardia Lamblia PCR Not Detected (Not Detected) 10/30/24 22:10 Stl P. shigelloides PCR Not Detected (Not Detected) 10/30/24 22:10 Stool Salmonella PCR Not Detected (Not Detected) 10/30/24 22:10 Stool Sapovirus (PCR) Not Detected (Not Detected) 10/30/24 22:10 Stl Shigella/EIEC PCR Not Detected (Not Detected) 10/30/24 22:10 St Y.enterocolitica PCR Not Detected (Not Detected) 10/30/24 22:10 Stool Vibrio (PCR) Not Detected (Not Detected) 10/30/24 22:10 Stl Vibrio cholerae PCR Not Detected (Not Detected) 10/30/24 22:10 Stl Enteroaggr Ecoli PCR Not Detected (Not Detected) 10/30/24 22:10 Stl Norovirus GI/GII PCR Not Detected (Not Detected) 10/30/24 22:10 Procedures Procedures: Procedures INSPECTION OF LOWER INTESTINAL TRACT, ENDO (09/16/15) <VANESSA Mancuso - Last Filed: 11/01/24 13:18> Vital Signs: Vital Signs - 24 hr 10/31/24 10:57 10/31/24 11:00 10/31/24 11:05 Temperature 36.7 C Temperature Source Pulse Rate 75 80 Pulse Rate [Brachial] 74 Respiratory Rate 22 21 18 Blood Pressure 130/80 120/92 H Blood Pressure [Left Brachial artery] 125/81 O2 Saturation 99 99 O2 Source Non-rebreather mask If not protocol: Oxygen Flow, liters/minute 10 Sedation scale Pain Intensity Pain Intensity [Abdomen] 10/31/24 11:10 10/31/24 11:15 10/31/24 11:20 Temperature 36.3 C L 36.3 C L Temperature Source Pulse Rate 81 82 78 Pulse Rate [Brachial] Respiratory Rate 20 20 20 Blood Pressure 118/77 114/87 119/81 Blood Pressure [Left Brachial artery] O2 Saturation 99 99 99 O2 Source If not protocol: Oxygen Flow, liters/minute Sedation scale Pain Intensity Pain Intensity [Abdomen] 10/31/24 11:25 10/31/24 11:30 10/31/24 11:31 Temperature Temperature Source Pulse Rate 79 77 Pulse Rate [Brachial] 70 Respiratory Rate 20 18 18 Blood Pressure 116/77 112/77 Blood Pressure [Left Brachial artery] 103/64 O2 Saturation 99 99 99 O2 Source If not protocol: Oxygen Flow, liters/minute Sedation scale Pain Intensity Pain Intensity [Abdomen] 10/31/24 11:35 10/31/24 11:39 10/31/24 11:40 Temperature Temperature Source Pulse Rate 76 77 Pulse Rate [Brachial] Respiratory Rate 20 18 Blood Pressure 118/77 120/73 Blood Pressure [Left Brachial artery] O2 Saturation 98 99 O2 Source If not protocol: Oxygen Flow, liters/minute Sedation scale Pain Intensity 7 Pain Intensity [Abdomen] 10/31/24 11:45 10/31/24 11:50 10/31/24 11:55 Temperature Temperature Source Pulse Rate 78 79 78 Pulse Rate [Brachial] Respiratory Rate 18 20 18 Blood Pressure 110/74 114/76 96/66 Blood Pressure [Left Brachial artery] O2 Saturation 97 98 97 O2 Source If not protocol: Oxygen Flow, liters/minute Sedation scale Pain Intensity Pain Intensity [Abdomen] 10/31/24 12:00 10/31/24 12:00 10/31/24 12:00 Temperature Temperature Source Pulse Rate 75 Pulse Rate [Brachial] Respiratory Rate 20 Blood Pressure 99/66 Blood Pressure [Left Brachial artery] O2 Saturation 97 O2 Source If not protocol: Oxygen Flow, liters/minute Sedation scale Pain Intensity 6 Pain Intensity [Abdomen] 7 10/31/24 12:05 10/31/24 12:30 10/31/24 12:30 Temperature 36.7 C Temperature Source Temporal Artery Scan Pulse Rate 74 Pulse Rate [Brachial] 70 Respiratory Rate 18 20 Blood Pressure 97/62 Blood Pressure [Left Brachial artery] 103/64 O2 Saturation 97 99 O2 Source Room air If not protocol: Oxygen Flow, liters/minute Sedation scale 0-Fully awake Pain Intensity 0 Pain Intensity [Abdomen] 10/31/24 12:30 10/31/24 12:45 10/31/24 13:00 Temperature Temperature Source Pulse Rate Pulse Rate [Brachial] 69 70 Respiratory Rate 20 18 Blood Pressure Blood Pressure [Left Brachial artery] 106/67 98/62 O2 Saturation 98 98 O2 Source Room air Room air If not protocol: Oxygen Flow, liters/minute Sedation scale 0-Fully awake 1-Arouses easily Pain Intensity 0 Pain Intensity [Abdomen] 10/31/24 13:15 10/31/24 14:30 10/31/24 15:15 Temperature 36.5 C 36.5 C Temperature Source Temporal Artery Scan Temporal Artery Scan Pulse Rate Pulse Rate [Brachial] 69 70 67 Respiratory Rate 20 20 18 Blood Pressure Blood Pressure [Left Brachial artery] 98/60 95/56 L 94/59 L O2 Saturation 99 96 97 O2 Source Room air Room air Room air If not protocol: Oxygen Flow, liters/minute Sedation scale 1-Arouses easily 1-Arouses easily 1-Arouses easily Pain Intensity Pain Intensity [Abdomen] 10/31/24 15:31 10/31/24 16:00 10/31/24 16:04 Temperature 36.4 C L Temperature Source Temporal Artery Scan Pulse Rate Pulse Rate [Brachial] 70 72 Respiratory Rate 20 16 Blood Pressure Blood Pressure [Left Brachial artery] 90/56 L 97/60 O2 Saturation 96 95 O2 Source Room air If not protocol: Oxygen Flow, liters/minute Sedation scale 1-Arouses easily Pain Intensity 0 Pain Intensity [Abdomen] 0 10/31/24 17:00 10/31/24 18:00 10/31/24 18:58 Temperature 36.5 C 36.7 C Temperature Source Temporal Artery Scan Temporal Artery Scan Pulse Rate Pulse Rate [Brachial] 69 77 70 Respiratory Rate 18 18 18 Blood Pressure Blood Pressure [Left Brachial artery] 90/54 L 110/67 103/62 O2 Saturation 96 99 98 O2 Source Room air Room air If not protocol: Oxygen Flow, liters/minute Sedation scale 0-Fully awake 0-Fully awake Pain Intensity 0 0 Pain Intensity [Abdomen] 10/31/24 19:00 10/31/24 21:07 10/31/24 23:50 Temperature 36.9 C 36.8 C 36.5 C Temperature Source Temporal Artery Scan Temporal Artery Scan Skin Pulse Rate Pulse Rate [Brachial] 70 97 62 Respiratory Rate 18 18 12 Blood Pressure Blood Pressure [Left Brachial artery] 119/65 116/65 104/59 L O2 Saturation 97 97 97 O2 Source Room air Room air Room air If not protocol: Oxygen Flow, liters/minute Sedation scale 0-Fully awake 0-Fully awake 1-Arouses easily Pain Intensity 0 0 3 Pain Intensity [Abdomen] 10/31/24 23:50 11/01/24 04:20 11/01/24 06:13 Temperature 36.5 C 36.5 C 37.0 C Temperature Source Skin Temporal Artery Scan Pulse Rate Pulse Rate [Brachial] 62 82 89 Respiratory Rate 12 16 16 Blood Pressure Blood Pressure [Left Brachial artery] 104/59 L 120/70 117/71 O2 Saturation 97 97 97 O2 Source Room air If not protocol: Oxygen Flow, liters/minute Sedation scale 1-Arouses easily Pain Intensity Pain Intensity [Abdomen] 11/01/24 07:36 Temperature 36.6 C Temperature Source Temporal Artery Scan Pulse Rate Pulse Rate [Brachial] 86 Respiratory Rate 18 Blood Pressure Blood Pressure [Left Brachial artery] 149/70 H O2 Saturation 95 O2 Source Room air If not protocol: Oxygen Flow, liters/minute Sedation scale 0-Fully awake Pain Intensity Pain Intensity [Abdomen] Oxygen O2 Source Room air I&O (Last 24 Hrs): Intake and Output Totals x24h 10/30/24 10/31/24 11/01/24 23:59 23:59 23:59 Intake Total 1755 / 1755 3966 / 3966 1092 / 1092 Output Total 600 / 600 1250 / 1250 500 / 500 Balance 1155 / 1155 2716 / 2716 592 / 592 Results Results: Laboratory Results WBC 7.6 x10^3/uL (4.8-10.8) 11/01/24 05:30 RBC 4.10 10^6/uL (4.70-6.10) L 11/01/24 05:30 Hgb 12.6 g/dL (14.0-18.0) L 11/01/24 05:30 Hct 38.6 % (42.0-52.0) L 11/01/24 05:30 MCV 94.1 fL (80.0-94.0) H 11/01/24 05:30 MCH 30.7 pg (27.0-31.0) 11/01/24 05:30 MCHC 32.6 g/dL (32.0-36.0) 11/01/24 05:30 RDW 12.7 % (12.0-15.0) 11/01/24 05:30 Plt Count 223 10^3/uL (130-450) 11/01/24 05:30 MPV 9.2 fL (7.4-11.4) 11/01/24 05:30 Neut # (Auto) 6.2 10^3/uL (1.5-6.6) 11/01/24 05:30 Lymph # (Auto) 0.6 10^3/uL (1.5-3.5) L 11/01/24 05:30 Bates # (Auto) 0.8 10^3/uL (0.0-1.0) 11/01/24 05:30 Eos # (Auto) 0.0 10^3/uL (0.0-0.7) 11/01/24 05:30 Baso # (Auto) 0.0 10^3/uL (0.0-0.1) 11/01/24 05:30 Absolute Nucleated RBC 0.00 x10^3/uL 11/01/24 05:30 Nucleated RBC % 0.0 /100WBC 11/01/24 05:30 Sodium 138 mmol/L (135-145) 11/01/24 05:30 Potassium 4.2 mmol/L (3.5-4.5) 11/01/24 05:30 Chloride 105 mmol/L (101-111) 11/01/24 05:30 Carbon Dioxide 27 mmol/L (21-32) 11/01/24 05:30 Anion Gap 6.0 (6-13) 11/01/24 05:30 BUN 10 mg/dL (6-20) 11/01/24 05:30 Creatinine 1.0 mg/dL (0.6-1.3) 11/01/24 05:30 Estimated GFR (MDRD) 76 (>89) L 11/01/24 05:30 Glucose 118 mg/dL (74-104) H 11/01/24 05:30 POC Whole Bld Glucose 108 mg/dL (70-100) 11/01/24 07:31 Calcium 7.9 mg/dL (8.5-10.3) L 11/01/24 05:30 Total Bilirubin 0.4 mg/dL (0.2-1.0) 11/01/24 05:30 AST 16 IU/L (10-42) 11/01/24 05:30 ALT 11 IU/L (10-60) 11/01/24 05:30 Alkaline Phosphatase 45 IU/L (42-121) 11/01/24 05:30 Total Protein 5.9 g/dL (6.4-8.9) L 11/01/24 05:30 Albumin 3.4 g/dL (3.2-5.5) 11/01/24 05:30 Globulin 2.5 g/dL (2.1-4.2) 11/01/24 05:30 Albumin/Globulin Ratio 1.4 (1.0-2.2) 11/01/24 05:30 Lipase 18 U/L (11-82) 10/30/24 13:23 Urine Color DARK YELLOW 10/30/24 22:10 Urine Clarity CLEAR (CLEAR) 10/30/24 22:10 Urine pH 5.5 PH (5.0-7.5) 10/30/24 22:10 Ur Specific [place] 1.020 (1.002-1.030) 10/30/24 22:10 Urine Protein TRACE mg/dL (NEGATIVE) 10/30/24 22:10 Urine Glucose (UA) NEGATIVE mg/dL (NEGATIVE) 10/30/24 22:10 Urine Ketones 15 mg/dL (NEGATIVE) H 10/30/24 22:10 Urine Occult Blood NEGATIVE (NEGATIVE) 10/30/24 22:10 Urine Nitrite NEGATIVE (NEGATIVE) 10/30/24 22:10 Urine Bilirubin SMALL (NEGATIVE) H 10/30/24 22:10 Urine Urobilinogen 0.2 (NORMAL) E.U./dL (NORMAL) 10/30/24 22:10 Ur Leukocyte Esterase NEGATIVE (NEGATIVE) 10/30/24 22:10 Ur Microscopic Review NOT INDICATED 10/30/24 22:10 Urine Culture Comments NOT INDICATED 10/30/24 22:10 Stl C. cayetanensis PCR Not Detected (Not Detected) 10/30/24 22:10 Stool Rotavirus A PCR Not Detected (Not Detected) 10/30/24 22:10 Stl Adenov F 40/41 PCR Not Detected (Not Detected) 10/30/24 22:10 Stool Astrovirus (PCR) Not Detected (Not Detected) 10/30/24 22:10 Stool Campylobacter PCR Not Detected (Not Detected) 10/30/24 22:10 Stl C. diff Tox A/B PCR Not Detected (Not Detected) 10/30/24 22:10 Stool Cryptosporidium PCR Not Detected (Not Detected) 10/30/24 22:10 Stl Sh Tox Pr E STEC PCR Not Detected (Not Detected) 10/30/24 22:10 Stool E coli O157 PCR Not applicable (Not Detected) 10/30/24 22:10 Stl Enterotoxigenic E PCR Not Detected (Not Detected) 10/30/24 22:10 Stool EPEC (PCR) Not Detected (Not Detected) 10/30/24 22:10 Stl E. histolytica PCR Not Detected (Not Detected) 10/30/24 22:10 Stool Giardia Lamblia PCR Not Detected (Not Detected) 10/30/24 22:10 Stl P. shigelloides PCR Not Detected (Not Detected) 10/30/24 22:10 Stool Salmonella PCR Not Detected (Not Detected) 10/30/24 22:10 Stool Sapovirus (PCR) Not Detected (Not Detected) 10/30/24 22:10 Stl Shigella/EIEC PCR Not Detected (Not Detected) 10/30/24 22:10 St Y.enterocolitica PCR Not Detected (Not Detected) 10/30/24 22:10 Stool Vibrio (PCR) Not Detected (Not Detected) 10/30/24 22:10 Stl Vibrio cholerae PCR Not Detected (Not Detected) 10/30/24 22:10 Stl Enteroaggr Ecoli PCR Not Detected (Not Detected) 10/30/24 22:10 Stl Norovirus GI/GII PCR Not Detected (Not Detected) 10/30/24 22:10 Procedures Procedures: Procedures INSPECTION OF LOWER INTESTINAL TRACT, ENDO (09/16/15) Current Medications <Buffy DiChiara - Last Filed: 11/01/24 13:12> Current Medications Current Medications: Current Medications Generic Name Dose Route Start Last Admin Trade Name Freq PRN Reason Stop Dose Admin Diphenhydramine HCl 25 mg 10/31/24 11:26 Diphenhydramine Inj 50 Mg/Ml Vial IVP 11/01/24 11:26 Q6H PRN ITCHING Diphenhydramine HCl 25 mg 10/31/24 11:29 Diphenhydramine Inj 50 Mg/Ml Vial IVP 11/01/24 11:29 Q6H PRN ITCHING Hydromorphone HCl 0.5 mg 11/01/24 06:30 Hydromorphone 0.5 Mg/0.5 Ml Syringe IVP Q2H PRN Severe Pain (Level 7-10) Piperacillin Sod/Tazobactam 100 mls @ 200 mls/hr 10/31/24 14:00 Sod 3.375 gm/ Sodium Chloride IV 11/02/24 14:29 ONCE THEO Ropivacaine 200 mg in 100 mls @ 0 mls/hr 10/31/24 11:31 11/01/24 05:55 Naropin 0.2% EP 8 mls/hr PRN PRN Administration PAIN Protocol Per Protocol Acetaminophen 1,000 mg in 100 mls @ 400 mls/hr 10/31/24 14:00 11/01/24 06:27 Acetaminophen IV Infused Q8HR THEO Infusion Metoclopramide HCl 10 mg 10/31/24 11:26 Metoclopramide 10 Mg/2 Ml Vial IVP 11/01/24 11:26 Q6HR PRN Nausea / Vomiting Nalbuphine HCl 5 mg 10/31/24 11:26 Nalbuphine 10 Mg/Ml Amp IVP 11/01/24 11:26 Q4H PRN ITCHING Naloxone HCl 0.1 mg 10/31/24 11:31 Naloxone 0.4 Mg/Ml Vial IVP Q2M PRN RR<8 Ondansetron HCl 4 mg 10/31/24 11:31 Ondansetron 4 Mg/2 Ml Vial IVP Q6HR PRN Nausea / Vomiting <VANESSA Mancuso - Last Filed: 11/01/24 13:18> Current Medications Current Medications: Current Medications Generic Name Dose Route Start Last Admin Trade Name Freq PRN Reason Stop Dose Admin Diphenhydramine HCl 25 mg 10/31/24 11:26 Diphenhydramine Inj 50 Mg/Ml Vial IVP 11/01/24 11:26 Q6H PRN ITCHING Diphenhydramine HCl 25 mg 10/31/24 11:29 Diphenhydramine Inj 50 Mg/Ml Vial IVP 11/01/24 11:29 Q6H PRN ITCHING Hydromorphone HCl 0.5 mg 11/01/24 06:30 Hydromorphone 0.5 Mg/0.5 Ml Syringe IVP Q2H PRN Severe Pain (Level 7-10) Piperacillin Sod/Tazobactam 100 mls @ 200 mls/hr 10/31/24 14:00 Sod 3.375 gm/ Sodium Chloride IV 11/02/24 14:29 ONCE THEO Ropivacaine 200 mg in 100 mls @ 0 mls/hr 10/31/24 11:31 11/01/24 05:55 Naropin 0.2% EP 8 mls/hr PRN PRN Administration PAIN Protocol Per Protocol Acetaminophen 1,000 mg in 100 mls @ 400 mls/hr 10/31/24 14:00 11/01/24 06:27 Acetaminophen IV Infused Q8HR THEO Infusion Metoclopramide HCl 10 mg 10/31/24 11:26 Metoclopramide 10 Mg/2 Ml Vial IVP 11/01/24 11:26 Q6HR PRN Nausea / Vomiting Nalbuphine HCl 5 mg 10/31/24 11:26 Nalbuphine 10 Mg/Ml Amp IVP 11/01/24 11:26 Q4H PRN ITCHING Naloxone HCl 0.1 mg 10/31/24 11:31 Naloxone 0.4 Mg/Ml Vial IVP Q2M PRN RR<8 Ondansetron HCl 4 mg 10/31/24 11:31 Ondansetron 4 Mg/2 Ml Vial IVP Q6HR PRN Nausea / Vomiting
--- NOTE | 2024-11-01 10:54 | ANESTHESIA POST OP EVALUATION ---
Anesthesia Post Eval Post Anesthesia Eval Vitals: Last Vital Signs Temp 36.6 C 11/01/24 07:36 Pulse 86 11/01/24 07:36 Resp 18 11/01/24 07:36 BP 149/70 H 11/01/24 07:36 Pulse Ox 95 11/01/24 07:36 O2 Flow Rate 10 10/31/24 10:57 CV Function Including HR & BP: Stable Pain Control: Satisfactory (basal rate increased as pushing PCEA frequently, comfortable ) Nausea & Vomiting: Negative (ngt clamped, starting on diet) Mental Status: Patient Participates Respiratory Status: Airway Patent Hydration Status: Satisfactory Anesthesia Complications: None Other Details/Therapies Other Details/Therapies: epidural intact, no redness at site, no motor block, able to ambulate, plan to continue at 10cc with PCEA.
--- NOTE | 2024-11-01 10:57 | MISCELLANEOUS PROVIDER NOTE ---
Miscellaneous Provider Note - Note: Epidural site intact, good pain relief. Rate increased to 10 as high PCEA use. No motor block, able to ambulate. Plan: to continue epidural and evaluate tomorrow.
[2024-11-01] MEDS: HYDROmorphone 0.5 MG/0.5 ML SYRINGE IVP PRN (12:08)
[2024-11-01] MEDS: LIDOCAINE 2% URO-JET 5 ML SYRINGE UR ONE (22:15)
--- NOTE | 2024-11-02 09:20 | PROVIDER PROGRESS NOTE ---
Assessment/Plan <Buffy Zelaya - Last Filed: 11/02/24 15:01> Problem List (1) Large bowel obstruction: Assessment/Plan: * P/O right hemicolectomy with ileocolic anastomosis day 2. * Springer and NG tube have been removed * No flatus yet, patient has been tolerating soft diet well, no nausea * continue [employer] epidural pump. * Patient has been walking around, notes pain is well controlled, but had slight twinge of abdominal pain while walking * Consider toradol, patient creatinine 1.0 yesterday * awaiting return of bowel funciton * appreciate surgical input Current Meds Current Meds: Current Medications Generic Name Dose Route Start Last Admin Trade Name Freq PRN Reason Stop Dose Admin Hydromorphone HCl 0.5 mg 11/01/24 06:30 11/01/24 12:08 Hydromorphone 0.5 Mg/0.5 Ml Syringe IVP 0.5 mg Q2H PRN Administration Severe Pain (Level 7-10) Piperacillin Sod/Tazobactam 100 mls @ 200 mls/hr 10/31/24 14:00 Sod 3.375 gm/ Sodium Chloride IV 11/02/24 14:29 ONCE THEO Ropivacaine 200 mg in 100 mls @ 0 mls/hr 10/31/24 11:31 11/01/24 21:12 Naropin 0.2% EP 10 mls/hr PRN PRN Administration PAIN Protocol Per Protocol Acetaminophen 1,000 mg in 100 mls @ 400 mls/hr 10/31/24 14:00 11/02/24 06:24 Acetaminophen IV Infused Q8HR THEO Infusion Naloxone HCl 0.1 mg 10/31/24 11:31 Naloxone 0.4 Mg/Ml Vial IVP Q2M PRN RR<8 Ondansetron HCl 4 mg 10/31/24 11:31 Ondansetron 4 Mg/2 Ml Vial IVP Q6HR PRN Nausea / Vomiting Lab Result Lab results reviewed: Yes 11/01/24 05:30 11/01/24 05:30 Additional Planning Condition/Complexity: Stable <VANESSA Mancuso - Last Filed: 11/02/24 15:50> Problem List (1) Large bowel obstruction: Current Meds Current Meds: Current Medications Generic Name Dose Route Start Last Admin Trade Name Freq PRN Reason Stop Dose Admin Hydromorphone HCl 0.5 mg 11/01/24 06:30 11/01/24 12:08 Hydromorphone 0.5 Mg/0.5 Ml Syringe IVP 0.5 mg Q2H PRN Administration Severe Pain (Level 7-10) Piperacillin Sod/Tazobactam 100 mls @ 200 mls/hr 10/31/24 14:00 Sod 3.375 gm/ Sodium Chloride IV 11/02/24 14:29 ONCE THEO Ropivacaine 200 mg in 100 mls @ 0 mls/hr 10/31/24 11:31 11/01/24 21:12 Naropin 0.2% EP 10 mls/hr PRN PRN Administration PAIN Protocol Per Protocol Acetaminophen 1,000 mg in 100 mls @ 400 mls/hr 10/31/24 14:00 11/02/24 06:24 Acetaminophen IV Infused Q8HR THEO Infusion Naloxone HCl 0.1 mg 10/31/24 11:31 Naloxone 0.4 Mg/Ml Vial IVP Q2M PRN RR<8 Ondansetron HCl 4 mg 10/31/24 11:31 Ondansetron 4 Mg/2 Ml Vial IVP Q6HR PRN Nausea / Vomiting Subjective <Buffy Zelaya - Last Filed: 11/02/24 15:01> Subjective Nursing Reports: Other (Patient denies nausea or abdominal pain, would like to bathe today. ) Objective <Buffy Zelaya - Last Filed: 11/02/24 15:01> Vital Signs: Vital Signs - 24 hr 11/01/24 11:00 11/01/24 12:08 11/01/24 12:59 Temperature 36.7 C Temperature Source Temporal Artery Scan Pulse Rate [Brachial] 93 Respiratory Rate 16 Blood Pressure [Left Brachial artery] Blood Pressure [Right Brachial artery] 102/60 O2 Saturation 98 O2 Source Sedation scale Pain Intensity 7 3 11/01/24 13:00 11/01/24 16:00 11/01/24 16:26 Temperature 36.7 C 36.6 C Temperature Source Temporal Artery Scan Temporal Artery Scan Pulse Rate [Brachial] 93 77 Respiratory Rate 17 16 Blood Pressure [Left Brachial artery] 120/62 Blood Pressure [Right Brachial artery] 102/60 O2 Saturation 98 97 O2 Source Room air Room air Sedation scale 0-Fully awake 0-Fully awake Pain Intensity 1 0 0 03/08/25 20:27 11/01/24 23:55 11/02/24 04:27 Temperature 36.7 C 36.5 C 36.5 C Temperature Source Temporal Artery Scan Skin Skin Pulse Rate [Brachial] 83 78 84 Respiratory Rate 16 18 18 Blood Pressure [Left Brachial artery] 118/69 109/66 Blood Pressure [Right Brachial artery] 127/78 O2 Saturation 96 95 97 O2 Source Room air Room air Room air Sedation scale 0-Fully awake 0-Fully awake 0-Fully awake Pain Intensity 3 11/02/24 08:18 Temperature 36.4 C L Temperature Source Temporal Artery Scan Pulse Rate [Brachial] 81 Respiratory Rate 18 Blood Pressure [Left Brachial artery] 111/68 Blood Pressure [Right Brachial artery] O2 Saturation 97 O2 Source Room air Sedation scale 0-Fully awake Pain Intensity Oxygen O2 Source Room air I&O (Last 24 Hrs): Intake and Output Totals x24h 10/31/24 11/01/24 11/03/24 23:59 23:59 00:59 Intake Total 3966 / 3966 2926 / 2926 220 / 220 Output Total 1250 / 1250 2100 / 2100 425 / 425 Balance 2716 / 2716 826 / 826 -205 / -205 General: Alert, Oriented x3 and No acute distress HEENT: Atraumatic Neck: Supple Lymphatic: no adenopathy Neuro: Alert, CN 2-12 Grossly Intact and Oriented Times 3 Cardiovascular: Regular rate and Other (regular rhythm, no murmurs rubs or gallops) Respiratory: Chest non-tender, No respiratory distress and Other (Lungs CTA, no rhonchi wheezes or rales) Abdomen: Soft, No tenderness and Other (hypoactive tinkling bowel sounds, well healing incision with maile, no surrounding erythema or edema) Extremities: No edema Skin: No rashes Results Results: Laboratory Results WBC 7.6 x10^3/uL (4.8-10.8) 11/01/24 05:30 RBC 4.10 10^6/uL (4.70-6.10) L 11/01/24 05:30 Hgb 12.6 g/dL (14.0-18.0) L 11/01/24 05:30 Hct 38.6 % (42.0-52.0) L 11/01/24 05:30 MCV 94.1 fL (80.0-94.0) H 11/01/24 05:30 MCH 30.7 pg (27.0-31.0) 11/01/24 05:30 MCHC 32.6 g/dL (32.0-36.0) 11/01/24 05:30 RDW 12.7 % (12.0-15.0) 11/01/24 05:30 Plt Count 223 10^3/uL (130-450) 11/01/24 05:30 MPV 9.2 fL (7.4-11.4) 11/01/24 05:30 Neut # (Auto) 6.2 10^3/uL (1.5-6.6) 11/01/24 05:30 Lymph # (Auto) 0.6 10^3/uL (1.5-3.5) L 11/01/24 05:30 Cooper # (Auto) 0.8 10^3/uL (0.0-1.0) 11/01/24 05:30 Eos # (Auto) 0.0 10^3/uL (0.0-0.7) 11/01/24 05:30 Baso # (Auto) 0.0 10^3/uL (0.0-0.1) 11/01/24 05:30 Absolute Nucleated RBC 0.00 x10^3/uL 11/01/24 05:30 Nucleated RBC % 0.0 /100WBC 11/01/24 05:30 Sodium 138 mmol/L (135-145) 11/01/24 05:30 Potassium 4.2 mmol/L (3.5-4.5) 11/01/24 05:30 Chloride 105 mmol/L (101-111) 11/01/24 05:30 Carbon Dioxide 27 mmol/L (21-32) 11/01/24 05:30 Anion Gap 6.0 (6-13) 11/01/24 05:30 BUN 10 mg/dL (6-20) 11/01/24 05:30 Creatinine 1.0 mg/dL (0.6-1.3) 11/01/24 05:30 Estimated GFR (MDRD) 76 (>89) L 11/01/24 05:30 Glucose 118 mg/dL (74-104) H 11/01/24 05:30 POC Whole Bld Glucose 103 mg/dL (70-100) 11/01/24 11:51 Calcium 7.9 mg/dL (8.5-10.3) L 11/01/24 05:30 Total Bilirubin 0.4 mg/dL (0.2-1.0) 11/01/24 05:30 AST 16 IU/L (10-42) 11/01/24 05:30 ALT 11 IU/L (10-60) 11/01/24 05:30 Alkaline Phosphatase 45 IU/L (42-121) 11/01/24 05:30 Total Protein 5.9 g/dL (6.4-8.9) L 11/01/24 05:30 Albumin 3.4 g/dL (3.2-5.5) 11/01/24 05:30 Globulin 2.5 g/dL (2.1-4.2) 11/01/24 05:30 Albumin/Globulin Ratio 1.4 (1.0-2.2) 11/01/24 05:30 Lipase 18 U/L (11-82) 10/30/24 13:23 Urine Color DARK YELLOW 10/30/24 22:10 Urine Clarity CLEAR (CLEAR) 10/30/24 22:10 Urine pH 5.5 PH (5.0-7.5) 10/30/24 22:10 Ur Specific [place] 1.020 (1.002-1.030) 10/30/24 22:10 Urine Protein TRACE mg/dL (NEGATIVE) 10/30/24 22:10 Urine Glucose (UA) NEGATIVE mg/dL (NEGATIVE) 10/30/24 22:10 Urine Ketones 15 mg/dL (NEGATIVE) H 10/30/24 22:10 Urine Occult Blood NEGATIVE (NEGATIVE) 10/30/24 22:10 Urine Nitrite NEGATIVE (NEGATIVE) 10/30/24 22:10 Urine Bilirubin SMALL (NEGATIVE) H 10/30/24 22:10 Urine Urobilinogen 0.2 (NORMAL) E.U./dL (NORMAL) 10/30/24 22:10 Ur Leukocyte Esterase NEGATIVE (NEGATIVE) 10/30/24 22:10 Ur Microscopic Review NOT INDICATED 10/30/24 22:10 Urine Culture Comments NOT INDICATED 10/30/24 22:10 Stl C. cayetanensis PCR Not Detected (Not Detected) 10/30/24 22:10 Stool Rotavirus A PCR Not Detected (Not Detected) 10/30/24 22:10 Stl Adenov F 40/41 PCR Not Detected (Not Detected) 10/30/24 22:10 Stool Astrovirus (PCR) Not Detected (Not Detected) 10/30/24 22:10 Stool Campylobacter PCR Not Detected (Not Detected) 10/30/24 22:10 Stl C. diff Tox A/B PCR Not Detected (Not Detected) 10/30/24 22:10 Stool Cryptosporidium PCR Not Detected (Not Detected) 10/30/24 22:10 Stl Sh Tox Pr E STEC PCR Not Detected (Not Detected) 10/30/24 22:10 Stool E coli O157 PCR Not applicable (Not Detected) 10/30/24 22:10 Stl Enterotoxigenic E PCR Not Detected (Not Detected) 10/30/24 22:10 Stool EPEC (PCR) Not Detected (Not Detected) 10/30/24 22:10 Stl E. histolytica PCR Not Detected (Not Detected) 10/30/24 22:10 Stool Giardia Lamblia PCR Not Detected (Not Detected) 10/30/24 22:10 Stl P. shigelloides PCR Not Detected (Not Detected) 10/30/24 22:10 Stool Salmonella PCR Not Detected (Not Detected) 10/30/24 22:10 Stool Sapovirus (PCR) Not Detected (Not Detected) 10/30/24 22:10 Stl Shigella/EIEC PCR Not Detected (Not Detected) 10/30/24 22:10 St Y.enterocolitica PCR Not Detected (Not Detected) 10/30/24 22:10 Stool Vibrio (PCR) Not Detected (Not Detected) 10/30/24 22:10 Stl Vibrio cholerae PCR Not Detected (Not Detected) 10/30/24 22:10 Stl Enteroaggr Ecoli PCR Not Detected (Not Detected) 10/30/24 22:10 Stl Norovirus GI/GII PCR Not Detected (Not Detected) 10/30/24 22:10 Procedures Procedures: Procedures INSPECTION OF LOWER INTESTINAL TRACT, ENDO (09/16/15) <VANESSA Mancuso - Last Filed: 11/02/24 15:50> Vital Signs: Vital Signs - 24 hr 11/01/24 11:00 11/01/24 12:08 11/01/24 12:59 Temperature 36.7 C Temperature Source Temporal Artery Scan Pulse Rate [Brachial] 93 Respiratory Rate 16 Blood Pressure [Left Brachial artery] Blood Pressure [Right Brachial artery] 102/60 O2 Saturation 98 O2 Source Sedation scale Pain Intensity 7 3 11/01/24 13:00 11/01/24 16:00 11/01/24 16:26 Temperature 36.7 C 36.6 C Temperature Source Temporal Artery Scan Temporal Artery Scan Pulse Rate [Brachial] 93 77 Respiratory Rate 17 16 Blood Pressure [Left Brachial artery] 120/62 Blood Pressure [Right Brachial artery] 102/60 O2 Saturation 98 97 O2 Source Room air Room air Sedation scale 0-Fully awake 0-Fully awake Pain Intensity 1 0 0 11/01/24 20:27 11/01/24 23:55 11/02/24 04:27 Temperature 36.7 C 36.5 C 36.5 C Temperature Source Temporal Artery Scan Skin Skin Pulse Rate [Brachial] 83 78 84 Respiratory Rate 16 18 18 Blood Pressure [Left Brachial artery] 118/69 109/66 Blood Pressure [Right Brachial artery] 127/78 O2 Saturation 96 95 97 O2 Source Room air Room air Room air Sedation scale 0-Fully awake 0-Fully awake 0-Fully awake Pain Intensity 3 11/02/24 08:18 Temperature 36.4 C L Temperature Source Temporal Artery Scan Pulse Rate [Brachial] 81 Respiratory Rate 18 Blood Pressure [Left Brachial artery] 111/68 Blood Pressure [Right Brachial artery] O2 Saturation 97 O2 Source Room air Sedation scale 0-Fully awake Pain Intensity Oxygen O2 Source Room air I&O (Last 24 Hrs): Intake and Output Totals x24h 10/31/24 11/01/24 11/03/24 23:59 23:59 00:59 Intake Total 3966 / 3966 2926 / 2926 220 / 220 Output Total 1250 / 1250 2100 / 2100 425 / 425 Balance 2716 / 2716 826 / 826 -205 / -205 Results Results: Laboratory Results WBC 7.6 x10^3/uL (4.8-10.8) 11/01/24 05:30 RBC 4.10 10^6/uL (4.70-6.10) L 11/01/24 05:30 Hgb 12.6 g/dL (14.0-18.0) L 11/01/24 05:30 Hct 38.6 % (42.0-52.0) L 11/01/24 05:30 MCV 94.1 fL (80.0-94.0) H 11/01/24 05:30 MCH 30.7 pg (27.0-31.0) 11/01/24 05:30 MCHC 32.6 g/dL (32.0-36.0) 11/01/24 05:30 RDW 12.7 % (12.0-15.0) 11/01/24 05:30 Plt Count 223 10^3/uL (130-450) 11/01/24 05:30 MPV 9.2 fL (7.4-11.4) 11/01/24 05:30 Neut # (Auto) 6.2 10^3/uL (1.5-6.6) 11/01/24 05:30 Lymph # (Auto) 0.6 10^3/uL (1.5-3.5) L 11/01/24 05:30 Cooper # (Auto) 0.8 10^3/uL (0.0-1.0) 11/01/24 05:30 Eos # (Auto) 0.0 10^3/uL (0.0-0.7) 11/01/24 05:30 Baso # (Auto) 0.0 10^3/uL (0.0-0.1) 11/01/24 05:30 Absolute Nucleated RBC 0.00 x10^3/uL 11/01/24 05:30 Nucleated RBC % 0.0 /100WBC 11/01/24 05:30 Sodium 138 mmol/L (135-145) 11/01/24 05:30 Potassium 4.2 mmol/L (3.5-4.5) 11/01/24 05:30 Chloride 105 mmol/L (101-111) 11/01/24 05:30 Carbon Dioxide 27 mmol/L (21-32) 11/01/24 05:30 Anion Gap 6.0 (6-13) 11/01/24 05:30 BUN 10 mg/dL (6-20) 11/01/24 05:30 Creatinine 1.0 mg/dL (0.6-1.3) 11/01/24 05:30 Estimated GFR (MDRD) 76 (>89) L 11/01/24 05:30 Glucose 118 mg/dL (74-104) H 11/01/24 05:30 POC Whole Bld Glucose 103 mg/dL (70-100) 11/01/24 11:51 Calcium 7.9 mg/dL (8.5-10.3) L 11/01/24 05:30 Total Bilirubin 0.4 mg/dL (0.2-1.0) 11/01/24 05:30 AST 16 IU/L (10-42) 11/01/24 05:30 ALT 11 IU/L (10-60) 11/01/24 05:30 Alkaline Phosphatase 45 IU/L (42-121) 11/01/24 05:30 Total Protein 5.9 g/dL (6.4-8.9) L 11/01/24 05:30 Albumin 3.4 g/dL (3.2-5.5) 11/01/24 05:30 Globulin 2.5 g/dL (2.1-4.2) 11/01/24 05:30 Albumin/Globulin Ratio 1.4 (1.0-2.2) 11/01/24 05:30 Lipase 18 U/L (11-82) 10/30/24 13:23 Urine Color DARK YELLOW 10/30/24 22:10 Urine Clarity CLEAR (CLEAR) 10/30/24 22:10 Urine pH 5.5 PH (5.0-7.5) 10/30/24 22:10 Ur Specific [place] 1.020 (1.002-1.030) 10/30/24 22:10 Urine Protein TRACE mg/dL (NEGATIVE) 10/30/24 22:10 Urine Glucose (UA) NEGATIVE mg/dL (NEGATIVE) 10/30/24 22:10 Urine Ketones 15 mg/dL (NEGATIVE) H 10/30/24 22:10 Urine Occult Blood NEGATIVE (NEGATIVE) 10/30/24 22:10 Urine Nitrite NEGATIVE (NEGATIVE) 10/30/24 22:10 Urine Bilirubin SMALL (NEGATIVE) H 10/30/24 22:10 Urine Urobilinogen 0.2 (NORMAL) E.U./dL (NORMAL) 10/30/24 22:10 Ur Leukocyte Esterase NEGATIVE (NEGATIVE) 10/30/24 22:10 Ur Microscopic Review NOT INDICATED 10/30/24 22:10 Urine Culture Comments NOT INDICATED 10/30/24 22:10 Stl C. cayetanensis PCR Not Detected (Not Detected) 10/30/24 22:10 Stool Rotavirus A PCR Not Detected (Not Detected) 10/30/24 22:10 Stl Adenov F 40/41 PCR Not Detected (Not Detected) 10/30/24 22:10 Stool Astrovirus (PCR) Not Detected (Not Detected) 10/30/24 22:10 Stool Campylobacter PCR Not Detected (Not Detected) 10/30/24 22:10 Stl C. diff Tox A/B PCR Not Detected (Not Detected) 10/30/24 22:10 Stool Cryptosporidium PCR Not Detected (Not Detected) 10/30/24 22:10 Stl Sh Tox Pr E STEC PCR Not Detected (Not Detected) 10/30/24 22:10 Stool E coli O157 PCR Not applicable (Not Detected) 10/30/24 22:10 Stl Enterotoxigenic E PCR Not Detected (Not Detected) 10/30/24 22:10 Stool EPEC (PCR) Not Detected (Not Detected) 10/30/24 22:10 Stl E. histolytica PCR Not Detected (Not Detected) 10/30/24 22:10 Stool Giardia Lamblia PCR Not Detected (Not Detected) 10/30/24 22:10 Stl P. shigelloides PCR Not Detected (Not Detected) 10/30/24 22:10 Stool Salmonella PCR Not Detected (Not Detected) 10/30/24 22:10 Stool Sapovirus (PCR) Not Detected (Not Detected) 10/30/24 22:10 Stl Shigella/EIEC PCR Not Detected (Not Detected) 10/30/24 22:10 St Y.enterocolitica PCR Not Detected (Not Detected) 10/30/24 22:10 Stool Vibrio (PCR) Not Detected (Not Detected) 10/30/24 22:10 Stl Vibrio cholerae PCR Not Detected (Not Detected) 10/30/24 22:10 Stl Enteroaggr Ecoli PCR Not Detected (Not Detected) 10/30/24 22:10 Stl Norovirus GI/GII PCR Not Detected (Not Detected) 10/30/24 22:10 Procedures Procedures: Procedures INSPECTION OF LOWER INTESTINAL TRACT, ENDO (09/16/15) Current Medications <Buffy DiChiara - Last Filed: 11/02/24 15:01> Current Medications Current Medications: Current Medications Generic Name Dose Route Start Last Admin Trade Name Fredelma PRN Reason Stop Dose Admin Hydromorphone HCl 0.5 mg 11/01/24 06:30 11/01/24 12:08 Hydromorphone 0.5 Mg/0.5 Ml Syringe IVP 0.5 mg Q2H PRN Administration Severe Pain (Level 7-10) Piperacillin Sod/Tazobactam 100 mls @ 200 mls/hr 10/31/24 14:00 Sod 3.375 gm/ Sodium Chloride IV 11/02/24 14:29 ONCE THEO Ropivacaine 200 mg in 100 mls @ 0 mls/hr 10/31/24 11:31 11/01/24 21:12 Naropin 0.2% EP 10 mls/hr PRN PRN Administration PAIN Protocol Per Protocol Acetaminophen 1,000 mg in 100 mls @ 400 mls/hr 10/31/24 14:00 11/02/24 06:24 Acetaminophen IV Infused Q8HR THEO Infusion Naloxone HCl 0.1 mg 10/31/24 11:31 Naloxone 0.4 Mg/Ml Vial IVP Q2M PRN RR<8 Ondansetron HCl 4 mg 10/31/24 11:31 Ondansetron 4 Mg/2 Ml Vial IVP Q6HR PRN Nausea / Vomiting <VANESSA Mancuso - Last Filed: 11/02/24 15:50> Current Medications Current Medications: Current Medications Generic Name Dose Route Start Last Admin Trade Name Olga PRN Reason Stop Dose Admin Hydromorphone HCl 0.5 mg 11/01/24 06:30 11/01/24 12:08 Hydromorphone 0.5 Mg/0.5 Ml Syringe IVP 0.5 mg Q2H PRN Administration Severe Pain (Level 7-10) Piperacillin Sod/Tazobactam 100 mls @ 200 mls/hr 10/31/24 14:00 Sod 3.375 gm/ Sodium Chloride IV 11/02/24 14:29 ONCE THEO Ropivacaine 200 mg in 100 mls @ 0 mls/hr 10/31/24 11:31 11/01/24 21:12 Naropin 0.2% EP 10 mls/hr PRN PRN Administration PAIN Protocol Per Protocol Acetaminophen 1,000 mg in 100 mls @ 400 mls/hr 10/31/24 14:00 11/02/24 06:24 Acetaminophen IV Infused Q8HR THEO Infusion Naloxone HCl 0.1 mg 10/31/24 11:31 Naloxone 0.4 Mg/Ml Vial IVP Q2M PRN RR<8 Ondansetron HCl 4 mg 10/31/24 11:31 Ondansetron 4 Mg/2 Ml Vial IVP Q6HR PRN Nausea / Vomiting
--- NOTE | 2024-11-02 09:47 | MISCELLANEOUS PROVIDER NOTE ---
Miscellaneous Provider Note - Note: Rounded on Julio this morning, very comfortable and minimal PCEA usage, wants to go home. Tolerating a diet however no bm. Ambulating in hallway without discomfort. Spoke with Dr. Uriarte in patients room, he would like epidural to stay for today so Julio can not need opioids until return of bowel function. Epidural restarted at 8cc/hr, next bag can be 0.2% Ropivicaine plain (no precedex addition). I made RN aware.
--- NOTE | 2024-11-02 14:02 | PROVIDER PROGRESS NOTE ---
Current Medications Current Medications Current Medications: Current Medications Generic Name Dose Route Start Last Admin Trade Name Freq PRN Reason Stop Dose Admin Hydromorphone HCl 0.5 mg 11/01/24 06:30 11/01/24 12:08 Hydromorphone 0.5 Mg/0.5 Ml Syringe IVP 0.5 mg Q2H PRN Administration Severe Pain (Level 7-10) Piperacillin Sod/Tazobactam 100 mls @ 200 mls/hr 10/31/24 14:00 Sod 3.375 gm/ Sodium Chloride IV 11/02/24 14:29 ONCE THEO Ropivacaine 200 mg in 100 mls @ 0 mls/hr 10/31/24 11:31 11/02/24 09:18 Naropin 0.2% EP Infused PRN PRN Infusion PAIN, next bag plain Ropi 0.2% Protocol Per Protocol Acetaminophen 1,000 mg in 100 mls @ 400 mls/hr 10/31/24 14:00 11/02/24 06:24 Acetaminophen IV Infused Q8HR THEO Infusion Naloxone HCl 0.1 mg 10/31/24 11:31 Naloxone 0.4 Mg/Ml Vial IVP Q2M PRN RR<8 Ondansetron HCl 4 mg 10/31/24 11:31 Ondansetron 4 Mg/2 Ml Vial IVP Q6HR PRN Nausea / Vomiting Objective Vital Signs/Intake & Output Reviewed Vital Signs: Yes Vital Signs: Vital Signs x48h Temp Pulse Resp BP Pulse Ox 11/02/24 12:14 36.7 C 77 18 113/72 98 11/02/24 08:18 36.4 C L 81 18 111/68 97 Intake & Output: Intake & Output 10/30/24 10/31/24 11/01/24 11/03/24 23:59 23:59 23:59 00:59 Intake Total 1755 / 1755 3966 / 3966 2926 / 2926 440 / 440 Output Total 600 / 600 1250 / 1250 2100 / 2100 425 / 425 Balance 1155 / 1155 2716 / 2716 826 / 826 Weight (kg) 82.6 kg Objective General Appearance: positive No acute distress and Alert Eyes Bilateral: positive Normal inspection, PERRL and No scleral icterus Respiratory: positive No respiratory distress Abdomen: positive Other (mild distension. incision c/d/i without erythema) Neurologic/Psychiatric: positive Oriented x3 Lab Results 11/01/24 05:30 11/01/24 05:30 Assessment/Plan Problem List (1) Large bowel obstruction: Impression: ileus following surgery. no bm or flatus. distended. diet as tolerated. home when less distended and tolerating adequate po
[2024-11-02] MEDS: ONDANSETRON 4 MG/2 ML VIAL IVP PRN (16:03)
[2024-11-02] MEDS: PANTOPRAZOLE 40 MG VIAL IV ONE (17:59)
[2024-11-02] MEDS: METOCLOPRAMIDE 10 MG/2 ML VIAL IVP PRN (17:59)
[2024-11-02 19:09] LABS: BASOPHILS % (AUTO) 0.3 %; HCT - HEMATOCRIT 43.3 % (42.0-52.0); HGB - HEMOGLOBIN 14.3 g/dL (14.0-18.0); LYMPHOCYTES # (AUTO) 1.2 10^3/uL (1.5-3.5); LYMPHOCYTES % (AUTO) 10.2 %; MEAN CORPUSCULAR HEMOGLOBIN 30.8 pg (27.0-31.0); MEAN CORPUSCULAR VOLUME 93.3 fL (80.0-94.0); MEAN PLATELET VOLUME 9.1 fL (7.4-11.4); MONOCYTES # (AUTO) 0.9 10^3/uL (0.0-1.0); MONOCYTES % (AUTO) 7.4 %; NEUTROPHILS # (AUTO) 9.7 10^3/uL (1.5-6.6); NEUTROPHILS % (AUTO) 81.7 %; PLT - PLATELET COUNT 250 10^3/uL (130-450); RED BLOOD COUNT 4.64 10^6/uL (4.70-6.10); RED CELL DISTRIBUTION WIDTH 12.7 % (12.0-15.0); WHITE BLOOD COUNT 11.9 x10^3/uL (4.8-10.8)
[2024-11-02 19:29] LABS: CALCIUM 9.3 mg/dL (8.5-10.3); CREATININE 0.9 mg/dL (0.6-1.3); POTASSIUM 3.8 mmol/L (3.5-4.5)
[2024-11-02] MEDS: CALCIUM CARBONATE CHEW 500 MG TABLET PO SCH (21:52)
[2024-11-03 05:32] LABS: BASOPHILS % (AUTO) 0.2 %; HCT - HEMATOCRIT 42.4 % (42.0-52.0); HGB - HEMOGLOBIN 14.3 g/dL (14.0-18.0); LYMPHOCYTES % (AUTO) 9.4 %; MEAN CORPUSCULAR HEMOGLOBIN 31.6 pg (27.0-31.0); MEAN CORPUSCULAR HGB CONC 33.7 g/dL (32.0-36.0); MEAN CORPUSCULAR VOLUME 93.6 fL (80.0-94.0); MEAN PLATELET VOLUME 9.2 fL (7.4-11.4); MONOCYTES # (AUTO) 0.8 10^3/uL (0.0-1.0); MONOCYTES % (AUTO) 7.9 %; NEUTROPHILS # (AUTO) 8.8 10^3/uL (1.5-6.6); NEUTROPHILS % (AUTO) 82.1 %; PLT - PLATELET COUNT 247 10^3/uL (130-450); RED BLOOD COUNT 4.53 10^6/uL (4.70-6.10); RED CELL DISTRIBUTION WIDTH 12.5 % (12.0-15.0); WHITE BLOOD COUNT 10.7 x10^3/uL (4.8-10.8)
[2024-11-03 05:42] LABS: CALCIUM 9.1 mg/dL (8.5-10.3); CREATININE 1.1 mg/dL (0.6-1.3); POTASSIUM 3.8 mmol/L (3.5-4.5)
--- NOTE | 2024-11-03 08:17 | XRAY Report ---
PROCEDURE: XR Abdomen 1 V INDICATIONS: nausea post op TECHNIQUE: One view of the abdomen acquired. COMPARISON: None. FINDINGS: Surgical changes and devices: Partially visualized tubing is present overlying the lower left thorax and upper abdomen. It is not fully included within the [id number] does not appear consistent with prior nasogastric tube. Bowel: Bowel gas pattern demonstrates dilated loops of bowel more prominent when compared to . Soft tissues: No suspicious abdominal calcifications. Visualized solid organ contours appear normal in size. Bones: No suspicious bony lesions. IMPRESSION: Dilated loops of bowel most suggestive of partial obstruction more prominent when compared to prior e xam. Reviewed by: Nancy Francis MD on 11/03/2024 8:16 AM PDT Approved by: Nancy Francis MD on 11/03/2024 8:16 AM PDT Station ID: [id number]
--- NOTE | 2024-11-03 08:48 | PROVIDER PROGRESS NOTE ---
Subjective General Admit Date: 10/30/24 Other Other Information/Narrative: Patient complaining of acid reflux this AM. Nausea and single episode of emesis last night, after trying regular diet at lunch yesterday. +hiccups since yesterday. Minimal void overnight. +BM yesterday. No fevers or chills. Exam Exam Gen: NAD, alert and oriented, hiccuping CV: RRR Pulm: non labored, on RA Abd: soft, mildly distended, incision c/d/i with maile in place and mild bruising. No signs of hematoma or infection. 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 Clears today, as tolerated. If unable to tolerate, consider NG, recommend starting IVF. - PPI, tums ordered for reflux - XR independently interpreted and report reviewed. Small amount of free air, appropriate for post op course. - AM labs reassuring. No leukocytosis, BMP wnl. - epidural off, plan to remove today (per anesthesia) - continue prn pain, nausea meds
[2024-11-03] MEDS ORDERED: CALCIUM CARBONATE CHEW 500 MG TABLET PO PRN (09:28)
[2024-11-03] MEDS ORDERED: KETOROLAC 15 MG/ML VIAL IVP PRN (09:54)
[2024-11-03] MEDS: PANTOPRAZOLE 40 MG VIAL IVP SCH (10:03)
--- NOTE | 2024-11-03 10:13 | PROVIDER PROGRESS NOTE ---
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 * Consider removal of THERAPEUTIC RADIOLOGIST pump today, ordered toradol 15mg IV Q6 PRN, consider dilaudid * For his substernal chest pain, ordered calcium carbonate 500mg q2H PRN, continue Protonix 40 mg QDAC * Placed on clear fluid diet * Haldol ordered for his hiccups * Consider NG tube Current Meds Current Meds: Current Medications Generic Name Dose Route Start Last Admin Trade Name Freq PRN Reason Stop Dose Admin Calcium Carbonate/Glycine 500 mg 11/03/24 09:53 Calcium Carbonate Chew 500 Mg Tablet PO Q2H PRN heartburn Hydromorphone HCl 0.5 mg 11/01/24 06:30 11/01/24 12:08 Hydromorphone 0.5 Mg/0.5 Ml Syringe IVP 0.5 mg Q2H PRN Administration Severe Pain (Level 7-10) Ropivacaine 200 mg in 100 mls @ 0 mls/hr 10/31/24 11:31 11/03/24 10:04 Naropin 0.2% EP Infused PRN PRN Infusion PAIN, next bag plain Ropi 0.2% Protocol Per Protocol Acetaminophen 1,000 mg in 100 mls @ 400 mls/hr 10/31/24 14:00 11/03/24 06:33 Acetaminophen IV Infused Q8HR THEO Infusion Ketorolac Tromethamine 15 mg 11/03/24 09:54 Ketorolac 15 Mg/Ml Vial IVP 11/08/24 09:53 Q6HR PRN Severe Pain (Level 7-10) Metoclopramide HCl 5 mg 11/02/24 17:47 11/03/24 03:48 Metoclopramide 10 Mg/2 Ml Vial IVP 5 mg Q6HR PRN Administration Nausea / Vomiting Naloxone HCl 0.1 mg 10/31/24 11:31 Naloxone 0.4 Mg/Ml Vial IVP Q2M PRN RR<8 Ondansetron HCl 4 mg 10/31/24 11:31 11/03/24 00:25 Ondansetron 4 Mg/2 Ml Vial IVP 4 mg Q6HR PRN Administration Nausea / Vomiting Pantoprazole Sodium 40 mg 11/03/24 09:30 11/03/24 10:03 Pantoprazole 40 Mg Vial IVP 40 mg QDAC THEO Administration Lab Result Lab results reviewed: Yes 11/03/24 05:25 11/03/24 05:25 Additional Planning Condition/Complexity: Stable <VANESSA Mancuso - Last Filed: 11/03/24 13:43> Problem List (1) Large bowel obstruction: Current Meds Current Meds: Current Medications Generic Name Dose Route Start Last Admin Trade Name Freq PRN Reason Stop Dose Admin Calcium Carbonate/Glycine 500 mg 11/03/24 09:53 Calcium Carbonate Chew 500 Mg Tablet PO Q2H PRN heartburn Hydromorphone HCl 0.5 mg 11/01/24 06:30 11/01/24 12:08 Hydromorphone 0.5 Mg/0.5 Ml Syringe IVP 0.5 mg Q2H PRN Administration Severe Pain (Level 7-10) Ropivacaine 200 mg in 100 mls @ 0 mls/hr 10/31/24 11:31 11/03/24 10:04 Naropin 0.2% EP Infused PRN PRN Infusion PAIN, next bag plain Ropi 0.2% Protocol Per Protocol Acetaminophen 1,000 mg in 100 mls @ 400 mls/hr 10/31/24 14:00 11/03/24 06:33 Acetaminophen IV Infused Q8HR THEO Infusion Ketorolac Tromethamine 15 mg 11/03/24 09:54 Ketorolac 15 Mg/Ml Vial IVP 11/08/24 09:53 Q6HR PRN Severe Pain (Level 7-10) Metoclopramide HCl 5 mg 11/02/24 17:47 11/03/24 03:48 Metoclopramide 10 Mg/2 Ml Vial IVP 5 mg Q6HR PRN Administration Nausea / Vomiting Naloxone HCl 0.1 mg 10/31/24 11:31 Naloxone 0.4 Mg/Ml Vial IVP Q2M PRN RR<8 Ondansetron HCl 4 mg 10/31/24 11:31 11/03/24 00:25 Ondansetron 4 Mg/2 Ml Vial IVP 4 mg Q6HR PRN Administration Nausea / Vomiting Pantoprazole Sodium 40 mg 11/03/24 09:30 11/03/24 10:03 Pantoprazole 40 Mg Vial IVP 40 mg QDAC THEO Administration Subjective <Buffy Zelaya - Last Filed: 11/03/24 11:37> Subjective Patient Reports: Heartburn Objective <Buffy Zelaya - Last Filed: 11/03/24 11:37> Vital Signs: Vital Signs - 24 hr 11/02/24 12:14 11/02/24 16:05 11/02/24 18:58 Temperature 36.7 C 36.6 C Temperature Source Temporal Artery Scan Temporal Artery Scan Pulse Rate [Brachial] 77 82 Respiratory Rate 18 16 Blood Pressure [Left Brachial artery] 113/72 Blood Pressure [Right Brachial artery] 117/76 O2 Saturation 98 94 O2 Source Room air Room air Sedation scale 0-Fully awake 0-Fully awake Pain Intensity 0 0 11/02/24 19:00 11/03/24 00:01 11/03/24 03:48 Temperature 36.4 C L 36.5 C 36.6 C Temperature Source Temporal Artery Scan Temporal Artery Scan Temporal Artery Scan Pulse Rate [Brachial] 87 71 89 Respiratory Rate 20 18 18 Blood Pressure [Left Brachial artery] 124/85 Blood Pressure [Right Brachial artery] 134/89 H 127/76 O2 Saturation 95 97 100 O2 Source Room air Room air Room air Sedation scale 0-Fully awake 0-Fully awake 0-Fully awake Pain Intensity 5 0 11/03/24 08:32 Temperature 36.5 C Temperature Source Temporal Artery Scan Pulse Rate [Brachial] 81 Respiratory Rate 20 Blood Pressure [Left Brachial artery] 120/83 Blood Pressure [Right Brachial artery] O2 Saturation 98 O2 Source Room air Sedation scale 0-Fully awake Pain Intensity Oxygen O2 Source Room air I&O (Last 24 Hrs): Intake and Output Totals x24h 11/01/24 11/03/24 11/03/24 23:59 00:59 23:59 Intake Total 2926 / 2926 640 / 640 200 / 200 Output Total 2099 / 2099 425 / 425 Balance 826 / 826 215 / 215 200 / 200 General: Alert, Oriented x3 and Cooperative HEENT: Atraumatic, EOMI and Mucous membr. moist/pink Neck: Supple Neuro: Alert, CN 2-12 Grossly Intact and Oriented Times 3 Cardiovascular: Regular rate and Other (regular rhythm, no murmurs rubs or gallops) Respiratory: Other (Lungs CTA, no rhonchi, wheezing or rales) Abdomen: Normal bowel sounds and Soft Extremities: No edema Results Results: Laboratory Results WBC 10.7 x10^3/uL (4.8-10.8) 11/03/24 05:25 RBC 4.53 10^6/uL (4.70-6.10) L 11/03/24 05:25 Hgb 14.3 g/dL (14.0-18.0) 11/03/24 05:25 Hct 42.4 % (42.0-52.0) 11/03/24 05:25 MCV 93.6 fL (80.0-94.0) 11/03/24 05:25 MCH 31.6 pg (27.0-31.0) H 11/03/24 05:25 MCHC 33.7 g/dL (32.0-36.0) 11/03/24 05:25 RDW 12.5 % (12.0-15.0) 11/03/24 05:25 Plt Count 247 10^3/uL (130-450) 11/03/24 05:25 MPV 9.2 fL (7.4-11.4) 11/03/24 05:25 Neut # (Auto) 8.8 10^3/uL (1.5-6.6) H 11/03/24 05:25 Lymph # (Auto) 1.0 10^3/uL (1.5-3.5) L 11/03/24 05:25 Barry # (Auto) 0.8 10^3/uL (0.0-1.0) 11/03/24 05:25 Eos # (Auto) 0.0 10^3/uL (0.0-0.7) 11/03/24 05:25 Baso # (Auto) 0.0 10^3/uL (0.0-0.1) 11/03/24 05:25 Absolute Nucleated RBC 0.00 x10^3/uL 11/03/24 05:25 Nucleated RBC % 0.0 /100WBC 11/03/24 05:25 Sodium 139 mmol/L (135-145) 11/03/24 05:25 Potassium 3.8 mmol/L (3.5-4.5) 11/03/24 05:25 Chloride 101 mmol/L (101-111) 11/03/24 05:25 Carbon Dioxide 29 mmol/L (21-32) 11/03/24 05:25 Anion Gap 9.0 (6-13) 11/03/24 05:25 BUN 14 mg/dL (6-20) 11/03/24 05:25 Creatinine 1.1 mg/dL (0.6-1.3) 11/03/24 05:25 Estimated GFR (MDRD) 69 (>89) L 11/03/24 05:25 Glucose 138 mg/dL (74-104) H 11/03/24 05:25 POC Whole Bld Glucose 103 mg/dL (70-100) 11/01/24 11:51 Calcium 9.1 mg/dL (8.5-10.3) 11/03/24 05:25 Total Bilirubin 0.4 mg/dL (0.2-1.0) 11/01/24 05:30 AST 16 IU/L (10-42) 11/01/24 05:30 ALT 11 IU/L (10-60) 11/01/24 05:30 Alkaline Phosphatase 45 IU/L (42-121) 11/01/24 05:30 Total Protein 5.9 g/dL (6.4-8.9) L 11/01/24 05:30 Albumin 3.4 g/dL (3.2-5.5) 11/01/24 05:30 Globulin 2.5 g/dL (2.1-4.2) 11/01/24 05:30 Albumin/Globulin Ratio 1.4 (1.0-2.2) 11/01/24 05:30 Lipase 18 U/L (11-82) 10/30/24 13:23 Urine Color DARK YELLOW 10/30/24 22:10 Urine Clarity CLEAR (CLEAR) 10/30/24 22:10 Urine pH 5.5 PH (5.0-7.5) 10/30/24 22:10 Ur Specific [place] 1.020 (1.002-1.030) 10/30/24 22:10 Urine Protein TRACE mg/dL (NEGATIVE) 10/30/24 22:10 Urine Glucose (UA) NEGATIVE mg/dL (NEGATIVE) 10/30/24 22:10 Urine Ketones 15 mg/dL (NEGATIVE) H 10/30/24 22:10 Urine Occult Blood NEGATIVE (NEGATIVE) 10/30/24 22:10 Urine Nitrite NEGATIVE (NEGATIVE) 10/30/24 22:10 Urine Bilirubin SMALL (NEGATIVE) H 10/30/24 22:10 Urine Urobilinogen 0.2 (NORMAL) E.U./dL (NORMAL) 10/30/24 22:10 Ur Leukocyte Esterase NEGATIVE (NEGATIVE) 10/30/24 22:10 Ur Microscopic Review NOT INDICATED 10/30/24 22:10 Urine Culture Comments NOT INDICATED 10/30/24 22:10 Stl C. cayetanensis PCR Not Detected (Not Detected) 10/30/24 22:10 Stool Rotavirus A PCR Not Detected (Not Detected) 10/30/24 22:10 Stl Adenov F 40/41 PCR Not Detected (Not Detected) 10/30/24 22:10 Stool Astrovirus (PCR) Not Detected (Not Detected) 10/30/24 22:10 Stool Campylobacter PCR Not Detected (Not Detected) 10/30/24 22:10 Stl C. diff Tox A/B PCR Not Detected (Not Detected) 10/30/24 22:10 Stool Cryptosporidium PCR Not Detected (Not Detected) 10/30/24 22:10 Stl Sh Tox Pr E STEC PCR Not Detected (Not Detected) 10/30/24 22:10 Stool E coli O157 PCR Not applicable (Not Detected) 10/30/24 22:10 Stl Enterotoxigenic E PCR Not Detected (Not Detected) 10/30/24 22:10 Stool EPEC (PCR) Not Detected (Not Detected) 10/30/24 22:10 Stl E. histolytica PCR Not Detected (Not Detected) 10/30/24 22:10 Stool Giardia Lamblia PCR Not Detected (Not Detected) 10/30/24 22:10 Stl P. shigelloides PCR Not Detected (Not Detected) 10/30/24 22:10 Stool Salmonella PCR Not Detected (Not Detected) 10/30/24 22:10 Stool Sapovirus (PCR) Not Detected (Not Detected) 10/30/24 22:10 Stl Shigella/EIEC PCR Not Detected (Not Detected) 10/30/24 22:10 St Y.enterocolitica PCR Not Detected (Not Detected) 10/30/24 22:10 Stool Vibrio (PCR) Not Detected (Not Detected) 10/30/24 22:10 Stl Vibrio cholerae PCR Not Detected (Not Detected) 10/30/24 22:10 Stl Enteroaggr Ecoli PCR Not Detected (Not Detected) 10/30/24 22:10 Stl Norovirus GI/GII PCR Not Detected (Not Detected) 10/30/24 22:10 Procedures Procedures: Procedures INSPECTION OF LOWER INTESTINAL TRACT, ENDO (09/16/15) <VANESSA Mancuso - Last Filed: 11/03/24 13:43> Vital Signs: Vital Signs - 24 hr 11/02/24 12:14 11/02/24 16:05 11/02/24 18:58 Temperature 36.7 C 36.6 C Temperature Source Temporal Artery Scan Temporal Artery Scan Pulse Rate [Brachial] 77 82 Respiratory Rate 18 16 Blood Pressure [Left Brachial artery] 113/72 Blood Pressure [Right Brachial artery] 117/76 O2 Saturation 98 94 O2 Source Room air Room air Sedation scale 0-Fully awake 0-Fully awake Pain Intensity 0 0 11/02/24 19:00 11/03/24 00:01 11/03/24 03:48 Temperature 36.4 C L 36.5 C 36.6 C Temperature Source Temporal Artery Scan Temporal Artery Scan Temporal Artery Scan Pulse Rate [Brachial] 87 71 89 Respiratory Rate 20 18 18 Blood Pressure [Left Brachial artery] 124/85 Blood Pressure [Right Brachial artery] 134/89 H 127/76 O2 Saturation 95 97 100 O2 Source Room air Room air Room air Sedation scale 0-Fully awake 0-Fully awake 0-Fully awake Pain Intensity 5 0 11/03/24 08:32 Temperature 36.5 C Temperature Source Temporal Artery Scan Pulse Rate [Brachial] 81 Respiratory Rate 20 Blood Pressure [Left Brachial artery] 120/83 Blood Pressure [Right Brachial artery] O2 Saturation 98 O2 Source Room air Sedation scale 0-Fully awake Pain Intensity Oxygen O2 Source Room air I&O (Last 24 Hrs): Intake and Output Totals x24h 11/01/24 11/03/24 11/03/24 23:59 00:59 23:59 Intake Total 2926 / 2926 640 / 640 200 / 200 Output Total 2100 / 2100 425 / 425 Balance 826 / 826 215 / 215 200 / 200 Results Results: Laboratory Results WBC 10.7 x10^3/uL (4.8-10.8) 11/03/24 05:25 RBC 4.53 10^6/uL (4.70-6.10) L 11/03/24 05:25 Hgb 14.3 g/dL (14.0-18.0) 11/03/24 05:25 Hct 42.4 % (42.0-52.0) 11/03/24 05:25 MCV 93.6 fL (80.0-94.0) 11/03/24 05:25 MCH 31.6 pg (27.0-31.0) H 11/03/24 05:25 MCHC 33.7 g/dL (32.0-36.0) 11/03/24 05:25 RDW 12.5 % (12.0-15.0) 11/03/24 05:25 Plt Count 247 10^3/uL (130-450) 11/03/24 05:25 MPV 9.2 fL (7.4-11.4) 11/03/24 05:25 Neut # (Auto) 8.8 10^3/uL (1.5-6.6) H 11/03/24 05:25 Lymph # (Auto) 1.0 10^3/uL (1.5-3.5) L 11/03/24 05:25 Barry # (Auto) 0.8 10^3/uL (0.0-1.0) 11/03/24 05:25 Eos # (Auto) 0.0 10^3/uL (0.0-0.7) 11/03/24 05:25 Baso # (Auto) 0.0 10^3/uL (0.0-0.1) 11/03/24 05:25 Absolute Nucleated RBC 0.00 x10^3/uL 11/03/24 05:25 Nucleated RBC % 0.0 /100WBC 11/03/24 05:25 Sodium 139 mmol/L (135-145) 11/03/24 05:25 Potassium 3.8 mmol/L (3.5-4.5) 11/03/24 05:25 Chloride 101 mmol/L (101-111) 11/03/24 05:25 Carbon Dioxide 29 mmol/L (21-32) 11/03/24 05:25 Anion Gap 9.0 (6-13) 11/03/24 05:25 BUN 14 mg/dL (6-20) 11/03/24 05:25 Creatinine 1.1 mg/dL (0.6-1.3) 11/03/24 05:25 Estimated GFR (MDRD) 69 (>89) L 11/03/24 05:25 Glucose 138 mg/dL (74-104) H 11/03/24 05:25 POC Whole Bld Glucose 103 mg/dL (70-100) 11/01/24 11:51 Calcium 9.1 mg/dL (8.5-10.3) 11/03/24 05:25 Total Bilirubin 0.4 mg/dL (0.2-1.0) 11/01/24 05:30 AST 16 IU/L (10-42) 11/01/24 05:30 ALT 11 IU/L (10-60) 11/01/24 05:30 Alkaline Phosphatase 45 IU/L (42-121) 11/01/24 05:30 Total Protein 5.9 g/dL (6.4-8.9) L 11/01/24 05:30 Albumin 3.4 g/dL (3.2-5.5) 11/01/24 05:30 Globulin 2.5 g/dL (2.1-4.2) 11/01/24 05:30 Albumin/Globulin Ratio 1.4 (1.0-2.2) 11/01/24 05:30 Lipase 18 U/L (11-82) 10/30/24 13:23 Urine Color DARK YELLOW 10/30/24 22:10 Urine Clarity CLEAR (CLEAR) 10/30/24 22:10 Urine pH 5.5 PH (5.0-7.5) 10/30/24 22:10 Ur Specific [place] 1.020 (1.002-1.030) 10/30/24 22:10 Urine Protein TRACE mg/dL (NEGATIVE) 10/30/24 22:10 Urine Glucose (UA) NEGATIVE mg/dL (NEGATIVE) 10/30/24 22:10 Urine Ketones 15 mg/dL (NEGATIVE) H 10/30/24 22:10 Urine Occult Blood NEGATIVE (NEGATIVE) 10/30/24 22:10 Urine Nitrite NEGATIVE (NEGATIVE) 10/30/24 22:10 Urine Bilirubin SMALL (NEGATIVE) H 10/30/24 22:10 Urine Urobilinogen 0.2 (NORMAL) E.U./dL (NORMAL) 10/30/24 22:10 Ur Leukocyte Esterase NEGATIVE (NEGATIVE) 10/30/24 22:10 Ur Microscopic Review NOT INDICATED 10/30/24 22:10 Urine Culture Comments NOT INDICATED 10/30/24 22:10 Stl C. cayetanensis PCR Not Detected (Not Detected) 10/30/24 22:10 Stool Rotavirus A PCR Not Detected (Not Detected) 10/30/24 22:10 Stl Adenov F 40/41 PCR Not Detected (Not Detected) 10/30/24 22:10 Stool Astrovirus (PCR) Not Detected (Not Detected) 10/30/24 22:10 Stool Campylobacter PCR Not Detected (Not Detected) 10/30/24 22:10 Stl C. diff Tox A/B PCR Not Detected (Not Detected) 10/30/24 22:10 Stool Cryptosporidium PCR Not Detected (Not Detected) 10/30/24 22:10 Stl Sh Tox Pr E STEC PCR Not Detected (Not Detected) 10/30/24 22:10 Stool E coli O157 PCR Not applicable (Not Detected) 10/30/24 22:10 Stl Enterotoxigenic E PCR Not Detected (Not Detected) 10/30/24 22:10 Stool EPEC (PCR) Not Detected (Not Detected) 10/30/24 22:10 Stl E. histolytica PCR Not Detected (Not Detected) 10/30/24 22:10 Stool Giardia Lamblia PCR Not Detected (Not Detected) 10/30/24 22:10 Stl P. shigelloides PCR Not Detected (Not Detected) 10/30/24 22:10 Stool Salmonella PCR Not Detected (Not Detected) 10/30/24 22:10 Stool Sapovirus (PCR) Not Detected (Not Detected) 10/30/24 22:10 Stl Shigella/EIEC PCR Not Detected (Not Detected) 10/30/24 22:10 St Y.enterocolitica PCR Not Detected (Not Detected) 10/30/24 22:10 Stool Vibrio (PCR) Not Detected (Not Detected) 10/30/24 22:10 Stl Vibrio cholerae PCR Not Detected (Not Detected) 10/30/24 22:10 Stl Enteroaggr Ecoli PCR Not Detected (Not Detected) 10/30/24 22:10 Stl Norovirus GI/GII PCR Not Detected (Not Detected) 10/30/24 22:10 Procedures Procedures: Procedures INSPECTION OF LOWER INTESTINAL TRACT, ENDO (09/16/15) Current Medications <Buffy Garcia - Last Filed: 11/03/24 11:37> Current Medications Current Medications: Current Medications Generic Name Dose Route Start Last Admin Trade Name Freq PRN Reason Stop Dose Admin Calcium Carbonate/Glycine 500 mg 11/03/24 09:53 Calcium Carbonate Chew 500 Mg Tablet PO Q2H PRN heartburn Hydromorphone HCl 0.5 mg 11/01/24 06:30 11/01/24 12:08 Hydromorphone 0.5 Mg/0.5 Ml Syringe IVP 0.5 mg Q2H PRN Administration Severe Pain (Level 7-10) Ropivacaine 200 mg in 100 mls @ 0 mls/hr 10/31/24 11:31 11/03/24 10:04 Naropin 0.2% EP Infused PRN PRN Infusion PAIN, next bag plain Ropi 0.2% Protocol Per Protocol Acetaminophen 1,000 mg in 100 mls @ 400 mls/hr 10/31/24 14:00 11/03/24 06:33 Acetaminophen IV Infused Q8HR THEO Infusion Ketorolac Tromethamine 15 mg 11/03/24 09:54 Ketorolac 15 Mg/Ml Vial IVP 11/08/24 09:53 Q6HR PRN Severe Pain (Level 7-10) Metoclopramide HCl 5 mg 11/02/24 17:47 11/03/24 03:48 Metoclopramide 10 Mg/2 Ml Vial IVP 5 mg Q6HR PRN Administration Nausea / Vomiting Naloxone HCl 0.1 mg 10/31/24 11:31 Naloxone 0.4 Mg/Ml Vial IVP Q2M PRN RR<8 Ondansetron HCl 4 mg 10/31/24 11:31 11/03/24 00:25 Ondansetron 4 Mg/2 Ml Vial IVP 4 mg Q6HR PRN Administration Nausea / Vomiting Pantoprazole Sodium 40 mg 11/03/24 09:30 11/03/24 10:03 Pantoprazole 40 Mg Vial IVP 40 mg QDAC THEO Administration <VANESSA Mancuso - Last Filed: 11/03/24 13:43> Current Medications Current Medications: Current Medications Generic Name Dose Route Start Last Admin Trade Name Andrewq PRN Reason Stop Dose Admin Calcium Carbonate/Glycine 500 mg 11/03/24 09:53 Calcium Carbonate Chew 500 Mg Tablet PO Q2H PRN heartburn Hydromorphone HCl 0.5 mg 11/01/24 06:30 11/01/24 12:08 Hydromorphone 0.5 Mg/0.5 Ml Syringe IVP 0.5 mg Q2H PRN Administration Severe Pain (Level 7-10) Ropivacaine 200 mg in 100 mls @ 0 mls/hr 10/31/24 11:31 11/03/24 10:04 Naropin 0.2% EP Infused PRN PRN Infusion PAIN, next bag plain Ropi 0.2% Protocol Per Protocol Acetaminophen 1,000 mg in 100 mls @ 400 mls/hr 10/31/24 14:00 11/03/24 06:33 Acetaminophen IV Infused Q8HR THEO Infusion Ketorolac Tromethamine 15 mg 11/03/24 09:54 Ketorolac 15 Mg/Ml Vial IVP 11/08/24 09:53 Q6HR PRN Severe Pain (Level 7-10) Metoclopramide HCl 5 mg 11/02/24 17:47 11/03/24 03:48 Metoclopramide 10 Mg/2 Ml Vial IVP 5 mg Q6HR PRN Administration Nausea / Vomiting Naloxone HCl 0.1 mg 10/31/24 11:31 Naloxone 0.4 Mg/Ml Vial IVP Q2M PRN RR<8 Ondansetron HCl 4 mg 10/31/24 11:31 11/03/24 00:25 Ondansetron 4 Mg/2 Ml Vial IVP 4 mg Q6HR PRN Administration Nausea / Vomiting Pantoprazole Sodium 40 mg 11/03/24 09:30 11/03/24 10:03 Pantoprazole 40 Mg Vial IVP 40 mg QDAC THEO Administration
--- NOTE | 2024-11-03 11:48 | PROVIDER PROGRESS NOTE ---
Subjective General Admit Date: 10/30/24 Procedure Date: 10/31/24 Post Op Days: 3 Procedure Performed: RIGHT hemicolectomy with ileocolostomy and umbilical herniorrhaphy Wound Assessment Wound/Incisions: positive Healing well (Minimal ecchymosis - no drainage.) Review of Systems Status of ROS: 10 or more systems reviewed and unremarkable except as noted in history and below Exam Exam General: 59-year old male, appears stated age, well developed, well nourished [facility], sitting up in bed with hiccups HEENT: Normocephalic, atraumatic, extraocular movement intact, mucous membranes pink and moist, sclera anicteric and not injected Neck: Supple without pain on palpation, mass or bruit Cardiac: Regular rate and rhythm without rub, gallop, or murmur Chest: Clear to auscultation bilaterally Abdomen: Soft and slightly "doughy," nontender, decreased bowel sounds, no hepatomegaly, no splenomegaly, midline incision well approximated without erythema, slight ecchymosis, maile and Dermabond Genitourinary: Deferred Rectal: Deferred Extremities: No gross neurovascular problem, no clubbing, cyanosis or edema Gait: Not evaluated Psychiatric: Alert and oriented to person place and time, asks and answers questions appropriately, mood and affect appropriate ABX Reporting Has patient been on IV antibiotics over the past 48 hours?: No Impression/Plan Problem List (1) Large bowel obstruction: Plan: Resolved with bowel function returning. Awaiting better bowel function and res olution of hiccups before feeding. Pathology pending but malignancy suspected. Patient has been very cooperative with walking. (2) Umbilical hernia: Plan: Resolved with fascial closure - no evidence of recurrence. (3) Postoperative pain: Plan: Epidural out - well controlled. Oral pain medications and anti-nausea medications. (4) Hiccups: Plan: Try non-operative therapy prior to medications. Discussed with patient who agrees. Plan I appreciate Dr. Scott rounding on my patient and her thoughts regarding his care. I am in complete agreement with the plan.
[2024-11-03] MEDS: HALOPERIDOL 5 MG/ML VIAL IVP PRN (13:27)
[2024-11-03] MEDS: LACTATED RINGERS 1,000 ML IV SCH (13:27)
[2024-11-03] MEDS: CALCIUM CARBONATE CHEW 500 MG TABLET PO PRN (13:27)
[2024-11-04 05:53] LABS: BASOPHILS % (AUTO) 0.8 %; EOSINOPHILS # (AUTO) 0.1 10^3/uL (0.0-0.7); EOSINOPHILS % (AUTO) 2.1 %; HCT - HEMATOCRIT 37.2 % (42.0-52.0); HGB - HEMOGLOBIN 12.3 g/dL (14.0-18.0); LYMPHOCYTES # (AUTO) 0.7 10^3/uL (1.5-3.5); MEAN CORPUSCULAR HGB CONC 33.1 g/dL (32.0-36.0); MEAN CORPUSCULAR VOLUME 93.7 fL (80.0-94.0); MEAN PLATELET VOLUME 9.4 fL (7.4-11.4); NEUTROPHILS # (AUTO) 3.3 10^3/uL (1.5-6.6); NEUTROPHILS % (AUTO) 63.9 %; PLT - PLATELET COUNT 263 10^3/uL (130-450); RED BLOOD COUNT 3.97 10^6/uL (4.70-6.10); RED CELL DISTRIBUTION WIDTH 12.5 % (12.0-15.0); WHITE BLOOD COUNT 5.2 x10^3/uL (4.8-10.8)
[2024-11-04 05:56] LABS: CALCIUM 8.5 mg/dL (8.5-10.3); POTASSIUM 3.4 mmol/L (3.5-4.5)
[2024-11-04] MEDS ORDERED: ACETAMINOPHEN 325 MG TABLET PO PRN (10:28)
[2024-11-04] MEDS ORDERED: oxyCODONE 5 MG TABLET PO PRN (12:04)
--- NOTE | 2024-11-04 12:06 | PROVIDER PROGRESS NOTE ---
Subjective Prog Note Date Prog Note Date: 11/04/24 Subjective Pt reports feeling: Improved Subjective: He has been having frequent BMs. The heartburn and hiccups symptoms are gone, and he is tolerating a clear liquid diet. He is nervous about starting more po intake. Current Medications Current Medications Current Medications: Current Medications Generic Name Dose Route Start Last Admin Trade Name Freq PRN Reason Stop Dose Admin Acetaminophen 650 mg 11/04/24 10:28 Acetaminophen 325 Mg Tablet PO Q4HR PRN Pain or Fever > 38C (100.4F) Calcium Carbonate/Glycine 500 mg 11/03/24 09:53 11/03/24 13:27 Calcium Carbonate Chew 500 Mg Tablet PO 500 mg Q2H PRN Administration heartburn Haloperidol 1 mg 11/03/24 11:32 11/03/24 19:59 Haloperidol 5 Mg/Ml Vial IVP 1 mg Q6H PRN Administration Hiccups Ropivacaine 200 mg in 100 mls @ 0 mls/hr 10/31/24 11:31 11/03/24 10:04 Naropin 0.2% EP Infused PRN PRN Infusion PAIN, next bag plain Ropi 0.2% Protocol Per Protocol Ketorolac Tromethamine 15 mg 11/03/24 09:54 Ketorolac 15 Mg/Ml Vial IVP 11/08/24 09:53 Q6HR PRN MODERATE PAIN (4-6) Naloxone HCl 0.1 mg 10/31/24 11:31 Naloxone 0.4 Mg/Ml Vial IVP Q2M PRN RR<8 Ondansetron HCl 4 mg 10/31/24 11:31 11/03/24 00:25 Ondansetron 4 Mg/2 Ml Vial IVP 4 mg Q6HR PRN Administration Nausea / Vomiting Pantoprazole Sodium 40 mg 11/04/24 11:00 Pantoprazole 40 Mg Tablet PO QDAC THEO Objective Vital Signs/Intake & Output Reviewed Vital Signs: Yes Vital Signs: Vital Signs x48h Temp Pulse Resp BP BP Pulse Ox 11/04/24 07:54 36.8 C 84 18 112/73 96 11/04/24 05:00 85 18 119/73 96 Intake & Output: Intake & Output 11/01/24 11/03/24 11/03/24 11/04/24 23:59 00:59 23:59 23:59 Intake Total 2926 / 2926 640 / 640 1396 / 1396 727 / 727 Output Total 2099 / 2099 425 / 425 Balance 826 / 826 215 / 215 1396 / 1396 727 / 727 Objective General Appearance: positive No acute distress and Alert Eyes Bilateral: positive Normal inspection ENT: positive ENT inspection nml Neck: positive Nml inspection Respiratory: positive No respiratory distress and Breath sounds nml Cardiovascular: positive Regular rate & rhythm Abdomen: positive Non-tender, No distention and Other (staple line is without eythema. ) Back: positive Nml inspection Skin: positive Color nml Extremities: positive No pedal edema Neurologic/Psychiatric: positive Oriented x3 Lab Results 11/04/24 05:17 11/04/24 05:17 Other Labs: Lab Results x24hrs 11/04/24 Range/Units 05:17 WBC 5.2 (4.8-10.8) x10^3/uL RBC 3.97 L (4.70-6.10) 10^6/uL Hgb 12.3 L (14.0-18.0) g/dL Hct 37.2 L (42.0-52.0) % MCV 93.7 (80.0-94.0) fL MCH 31.0 (27.0-31.0) pg MCHC 33.1 (32.0-36.0) g/dL RDW 12.5 (12.0-15.0) % Plt Count 263 (130-450) 10^3/uL MPV 9.4 (7.4-11.4) fL Neut # (Auto) 3.3 (1.5-6.6) 10^3/uL Lymph # (Auto) 0.7 L (1.5-3.5) 10^3/uL [place] # (Auto) 1.0 (0.0-1.0) 10^3/uL Eos # (Auto) 0.1 (0.0-0.7) 10^3/uL Baso # (Auto) 0.0 (0.0-0.1) 10^3/uL Absolute Nucleated RBC 0.00 x10^3/uL Nucleated RBC % 0.0 /100WBC Sodium 138 (135-145) mmol/L Potassium 3.4 L (3.5-4.5) mmol/L Chloride 102 (101-111) mmol/L Carbon Dioxide 29 (21-32) mmol/L Anion Gap 7.0 (6-13) BUN 18 (6-20) mg/dL Creatinine 1.0 (0.6-1.3) mg/dL Estimated GFR (MDRD) 76 L (>89) Glucose 142 H (74-104) mg/dL Calcium 8.5 (8.5-10.3) mg/dL Assessment/Plan Problem List (1) Large bowel obstruction: Impression: * Right hemicolectomy POD #4 * Frequent loose stools, no additional emesis. * Hiccups and heartburn symptoms have resolved. I am stopping the IV Haldol used for hiccups. I will stop the IV Protonix, but leave the patient on po protonix, but do not plan to discharge him on po protonix. 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 stopping IV Toradol. * For his substernal chest pain ordered calcium carbonate 500mg q2H PRN, continue Protonix 40 mg QDAC * Placed on full liquid diet. He will eat slowly today, hopefully advance to regular diet tomorrow AM, and home tomorrow mid day. I have spent 25 minutes in the care of this patient today. This includes time [id number], review and ordering of diagnostic imaging and laboratory studies and consultation with other providers.. Monitoring the patient's signs symptoms, evaluation of medication effectiveness and patient's response to treatment.
[2024-11-04] MEDS: PANTOPRAZOLE 40 MG TABLET PO SCH (12:30)
--- NOTE | 2024-11-04 15:07 | PROVIDER PROGRESS NOTE ---
Subjective General Admit Date: 10/30/24 Procedure Date: 10/31/24 Post Op Days: 4 Procedure Performed: RIGHT hemicolectomy with ileocolostomy and umbilical herniorrhaphy Wound Assessment Wound/Incisions: positive Healing well (Minimal ecchymosis - no drainage.) Review of Systems Status of ROS: 10 or more systems reviewed and unremarkable except as noted in history and below (Hiccups better.) Exam Exam General: 59-year old male, appears stated age, well developed, well nourished evaluated in room 2204 of [facility] unit, tolerated 1/2 a bowl of soup and some Jello - not nearly enough yet HEENT: Normocephalic, atraumatic, extraocular movement intact, mucous membranes pink and moist, sclera anicteric and not injected Neck: Supple without pain on palpation, mass or bruit Cardiac: Regular rate and rhythm without rub, gallop, or murmur Chest: Clear to auscultation bilaterally Abdomen: Soft and slightly "doughy," nontender, decreased bowel sounds, no hepatomegaly, no splenomegaly, midline incision well approximated without erythema, slight ecchymosis, maile and Dermabond Genitourinary: Deferred Rectal: Deferred Extremities: No gross neurovascular problem, no clubbing, cyanosis or edema Gait: Not evaluated Psychiatric: Alert and oriented to person place and time, asks and answers questions appropriately, mood and affect appropriate Impression/Plan Problem List (1) Large bowel obstruction: Plan: Resolved with bowel function returning. Awaiting better bowel function and resolution of hiccups before feeding. Pathology pending but malignancy tri pected. Patient has been very cooperative with walking. Pain controlled. Awaiting better po intake prior to discharge.
[2024-11-05 06:30] LABS: BASOPHILS # (AUTO) 0.1 10^3/uL (0.0-0.1); BASOPHILS % (AUTO) 0.6 %; EOSINOPHILS # (AUTO) 0.5 10^3/uL (0.0-0.7); EOSINOPHILS % (AUTO) 6.7 %; HCT - HEMATOCRIT 34.4 % (42.0-52.0); HGB - HEMOGLOBIN 11.5 g/dL (14.0-18.0); LYMPHOCYTES # (AUTO) 1.2 10^3/uL (1.5-3.5); LYMPHOCYTES % (AUTO) 14.8 %; MEAN CORPUSCULAR HEMOGLOBIN 31.5 pg (27.0-31.0); MEAN CORPUSCULAR HGB CONC 33.4 g/dL (32.0-36.0); MEAN CORPUSCULAR VOLUME 94.2 fL (80.0-94.0); MEAN PLATELET VOLUME 9.3 fL (7.4-11.4); MONOCYTES % (AUTO) 11.8 %; NEUTROPHILS # (AUTO) 5.3 10^3/uL (1.5-6.6); NEUTROPHILS % (AUTO) 65.6 %; PLT - PLATELET COUNT 257 10^3/uL (130-450); RED BLOOD COUNT 3.65 10^6/uL (4.70-6.10); RED CELL DISTRIBUTION WIDTH 12.4 % (12.0-15.0)
[2024-11-05 06:44] LABS: CALCIUM 8.1 mg/dL (8.5-10.3); CREATININE 0.9 mg/dL (0.6-1.3); POTASSIUM 3.5 mmol/L (3.5-4.5)
--- NOTE | 2024-11-05 08:14 | Discharge Summary ---
"Discharge Summary Admit Date: 10/30/24 Discharge Date: 11/05/24 Discharging Provider: Larry Uriarte Primary Care Provider: Sandi Code Status: Attempt Resuscitation DIAGNOSES Admission Diagnoses: Large bowel obstruction Discharge Diagnoses with Status of Each Condition: Resolved with surgery CONSULTS | PROCEDURES Consultations: Norma Dominguez) was consulted. Procedures: RIGHT hemicolectomy with ileocolostomy and umbilical herniorrhaphy. HOSPITAL COURSE Hospital Course: Uncomplicated. Awaited bowel function. Ambulated well. Developed hiccups. ALLERGIES Allergies Allergy/AdvReac Type Severity Reaction Status Date / Time No Known Drug Allergies Allergy Verified 10/30/24 12:59 MEDICATIONS Ambulatory Orders Medication Instructions Recorded Confirmed oxycodone 5 mg tablet 5 mg PO Q4HR PRN Moderate Pain 11/04/24 (Level 4-6) #7 tabs PHYSICAL EXAM AT DISCHARGE General Appearance: positive No acute distress Eyes Bilateral: positive No lid inflammation, Conjunctivae nml and No scleral icterus ENT: positive No signs of dehydration; negative Purulent nasal drainage, Pharyngeal erythema or Oral lesions Neck: positive No JVD and Trachea midline; negative Carotid bruit or Tracheal deviation Respiratory: positive Chest non-tender, No respiratory distress and Breath sounds nml Cardiovascular: positive Regular rate & rhythm, No murmur and No gallop Peripheral Pulses: positive 2+ Abdomen: positive Nml bowel sounds, No distention and Tenderness (Very mild incisional.); negative Rebound or Mass Skin: positive Color nml, No rash, Warm and Dry Extremities: positive Non-tender and No pedal edema Neurologic/Psychiatric: positive Oriented x3, Motor nml, Sensation nml and Mood/affect nml LABS 11/05/24 05:49 11/05/24 05:49 FOLLOW UP Follow Up: [facility] on 11/12/2024 TIME SPENT Time Spent in Discharge (Minutes): 45 Discharge Plan Discharge Patient Disposition: Home, Self Care Condition: Good Medically Cleared Date:: 11/19/24 Prescriptions: New oxycodone 5 mg Tablet 5 mg PO Q4HR PRN (Reason: Moderate Pain (Level 4-6)) Qty: 7 0RF Activity Restrictions: Activity as Tolerated Activity Restrictions/Additional Instructions: no lifting, pushing or pulling for 6 weeks (nothing heavier than 2 gallons of milk which is 16 pounds), no sit ups or planks Diet: Regular Health Concerns: You are a 59-year-old male who came into the hospital with nausea and vomiting that had been going on for several weeks but getting much worse. It turns out that you had an obstructive mass in your colon on the right side of your abdomen. Dr. Juarez took you to surgery on your second hospital day and took out the part of your colon that had a mass in it. He also took lots of lymph nodes so that the pathologist can look at the lymph nodes and make sure that those are okay. We do not have a definitive cancer diagnosis until we have the pathology back. That remains pending. It took a little bit of time for your bowel function to return after surgery but things have gotten better. Although you did not eat a lot he tolerated a regular diet for dinner the night before discharge. Otherwise after your surgery everything looks just fine. Your bowel function should continue to get better. You are slightly anemic after your surgery but not terrible. Your body should have the reserves needed to replace the blood cells blood cells you lost.. I am doing an iron panel to check your iron stores on the morning you are leaving the hospital. You should follow-up with Dr. Juarez in the clinic. I will put his contact information on these instructions give a call, as you will need a postop appointment in about 10 days. You need to get the maile out of your belly. Otherwise, follow-up with your primary care provider in a week to 10 days to touch base after this big health event. Next steps after this surgery all depend on the pathology. I am sure you will need different tests and screenings. But again, everything depends on the pathology. You may take Tylenol for pain when you get home. I have sent in just a few oxycodone tablets to the pharmacy here at [facility]; you can pick those up on your way home. You may not need them at all but it is a bad thing to be in pain and not have anything to help that pain Care Plan Goals: Do not lift anything heavy Lots of rest when you get home, you have been through an ordeal! Print Language: Z[place]ian Patient Instructions: Surgery Anesthesia After Follow-up Care: Larry Uriarte MD [Provider Admit Priv/Credential] - 11/12/24 (post op R hemicolectomy) Floyd Junior MD [Primary Care Provider] -"
[2024-11-05 08:23] VITALS: BP 120/63; TEMP 97.9; O2SAT 98
== END 2024-11-05 08:50 | disposition home or self-care (01) | DRG 330 ==
LOC: ED 12:56 → MS2 16:27
PROVIDERS: ADMIT Physician Assistant Medical; ATTEND Physician Assistant Medical
PROC: [UNRECOGNIZED PROCEDURE] (2024-10-31 07:30)